=== PATIENT | female | born 1940 | race Caucasian/White ===

== ENCOUNTER 2016-09-13 06:08 | Outpatient (CLI) | payer MEDICARE ==
[2016-09-13] VITALS (7 sets, daily range): BP systolic 126–169; BP diastolic 66–84; PULSE 80–88; RESP 16; TEMP 98.7–99; O2SAT 93–98; Ht 162.6 cm; Wt 74.9 kg
[~2016-09-13] VITALS: Ht 162.6 cm; Wt 74.9 kg
[~2016-09-13 06:08] MED LIST: ACET-765 PO; ALBU1.252 AEROSOL; ASPI-557 PO; ATOR40TA29 PO; CITA-51 PO; FERR-70 PO; GABA-190 PO; HYDR-3989 PO; METH500T6 PO; NITR0.4T38 SL; PANT40TA PO; PIND5TAB2 PO; WARF2TAB51 PO; [UNRECOGNIZED DRUG - CODE] PO
[2016-09-13 06:40] LABS: INR 1.57 (0.76-1.04); PROTHROMBIN TIME 17.1 SEC (9.31-12.49)
[2016-09-13] MEDS ORDERED: CHOL100092 PO (06:40)
[2016-09-13] MEDS ORDERED: MULT-933 PO (06:41)
[2016-09-13] MEDS ORDERED: WARF4TAB6 PO (06:43)
[2016-09-13] MEDS ORDERED: BENZ200C36 PO (06:45)
[2016-09-13] MEDS ORDERED: BIFI4CAP PO (06:47)
[2016-09-13] MEDS ORDERED: LR 1,000 ML IV SCH (07:00)
[2016-09-13] MEDS ORDERED: LIDOCAINE 1% (10mg/ml) 30ml SDV ONE ×2 (07:51→09:54)
[2016-09-13] MEDS ORDERED: MIDAZOLAM 2mg/2ml INJECTION ONE ×2 (07:51→09:53)
[2016-09-13] MEDS ORDERED: SALINE FLUSH 10ml SYRINGE ONE ×2 (07:51→09:54)
[2016-09-13] MEDS ORDERED: FENTANYL 100mcg/2ml INJECTION ONE ×2 (07:51→09:53)
[2016-09-13] MEDS ORDERED: NORMAL SALINE 0 ML IV ONE ×2 (07:53→09:54)
[2016-09-13] MEDS ORDERED: LR 1,000 ML IV PRN (08:00)
[2016-09-13] MEDS ORDERED: CEFAZOLIN 1 GRAM INJECTION IV ONE (08:00)
[2016-09-13] MEDS ORDERED: LIDOCAINE 1% (10mg/ml) 2ml SDV INJ ONE (08:00)
[2016-09-13] MEDS ORDERED: NORMAL SALINE 500 ML IV ONE (09:57)
--- NOTE | 2016-09-13 10:30 | DI ---
Indication: ITS.REASON: T-SPINE FX PROCEDURE: MRI THORACIC SPINE W/O CONTRAS: Encounter: Initial Comparison: None Technique: Multiplanar, multisequence, thoracic spine protocol MR imaging without contrast of the spine was acquired. FINDINGS: Alignment of the thoracic spine is within normal limits. There is an acute fracture of the T8 vertebral body with a remote fracture of the superior endplate of T5 Age-appropriate degenerative changes are seen within the facet joints and intervertebral disc, but these do not result in significant compromise of the spinal canal or neural foramina. The thoracic cord is normal in morphology, caliber, and signal intensity on the acquired sequences. There is no evidence of cord compression or intraspinal mass. IMPRESSION: 1. Acute fracture of T8 with remote fracture of T5. 2. No evidence of spinal cord compression or evidence of nerve root compromise in the thoracic spine region. .
--- NOTE | 2016-09-13 16:55 | DI ---
Indication: ITS.REASON: S22.000A Wedge compression fracture of unspecified PROCEDURE: VERTEBROPLASTY, THORACIC, SNGL: T8 Vertebral body augmentation with mechanical bone tamp devices Encounter: Initial Comparison: MRI of thoracic spine performed same date INDICATION: Osteoporotic compression fracture, unresponsive to standard medical management. Severe back pain. Informed consent was obtained. A "timeout" was performed prior to the procedure to confirm the patient's identity and the planned procedure. Moderate sedation was provided during the procedure with two mg of Versed and 75 mcg of fentanyl titrated intravenously over 30 minutes. The patient was continuously monitored with an independent trained nurse observer using pulse oximetry, EKG monitoring, and intermittent blood pressure monitoring. The patient was prepped and draped in sterile manner using maximal sterile barrier technique. Local anesthesia was provided with 1% lidocaine and 0.5% bupivacaine. The large caliber guide needle was advanced into the left pedicle of T8. Fluoroscopic guidance was utilized. A mechanical bone tamp device was then used to create a cavity in the superior aspect of the T8 vertebral body for vertebral augmentation. The curved needle was advanced through the guide needle and into the center of the vertebral body. In this location, polymethyl methacrylate cement was injected under fluoroscopic control. Good filling of the vertebral body was obtained. Early in the injection there was a small extension to the disc space so that no further cement could be safely administered. No complications occurred. Patient tolerated the procedure well. IMPRESSION: Uncomplicated vertebral body augmentation of T8 under fluoroscopic guidance. .
== END 2016-09-13 12:20 | disposition home or self-care (01) ==
LOC: CATH 06:08
PROVIDERS: ATTEND Radiology Body Imaging
DX: S22.060A Wedge compression fracture of T7-T8 vertebra, initial encounter for closed fracture (principal); M48.54XA Collapsed vertebra, not elsewhere classified, thoracic region, initial encounter for fracture; Z79.01 Long term (current) use of anticoagulants; Z79.82 Long term (current) use of aspirin; Z79.899 Other long term (current) drug therapy; W19.XXXA Unspecified fall, initial encounter; Y93.89 Activity, other specified; Y92.018 Other place in single-family (private) house as the place of occurrence of the external cause; Y99.8 Other external cause status
CPT/HCPCS: 22513; 36415; 72146; 82948; 85610; J2250; J3010

== ENCOUNTER 2016-09-26 11:02 | Emergency (ER) | payer MEDICARE ==
[~2016-09-26] VITALS: Ht 157.5 cm; Wt 76.2 kg
[~2016-09-26 11:02] MED LIST changes: +BENZ200C36 PO; +BIFI4CAP PO; +CHOL100092 PO; -METH500T6 PO; +MULT-933 PO; -WARF2TAB51 PO; +WARF4TAB6 PO
[2016-09-26 11:04] VITALS: Ht 157.5 cm; Wt 76.2 kg
--- OUTSIDE RECORDS SUMMARY | 2016-09-26 11:06 | XMS REPORT | Continuity of Care Document ---
Author Author [facility] Organization [facility] Address Unknown Phone Unavailable Care Team Providers Care Senior Mortgage Loan Processor Name Role Phone DMITRIY TAYLOR MD Primary Care Physician [phone] Insurance Providers Guarantor Tiffanie Grady Address [address] [place] [address] Email DENIED 09-10-16 Payer [employer] Policy Number [id number] Subscriber's Name Tiffanie Grady Relationship 18 Self Advance Directives Directive Response Recorded Date/Time Ordered Resuscitation Status Full Code, unverified 09/10/16 5:59pm Resuscitation Documents on File No 09/13/16 7:05am DPOA for Healthcare Only Yes 09/13/16 7:05am Living Will Yes 09/13/16 7:05am Problems Active Problems Medical Problem Onset Date Status A-fib Unknown Chronic Anxiety Unknown Chronic CAD (coronary artery disease) Unknown Chronic CAD (coronary artery disease), autologous vein bypass graft Unknown Chronic Chronic kidney disease (CKD) Unknown Chronic Diabetes mellitus Unknown Chronic GERD (gastroesophageal reflux disease) Unknown Chronic Hx of deep venous thrombosis Unknown Resolved Hyperlipemia Unknown Chronic Hypoxia Unknown Resolved Laceration of finger Unknown Acute Osteoarthritis Unknown Chronic Tension headache Unknown Chronic chronic anticoagulation Unknown Chronic Surgical Problem Onset Date Status S/P repair of ventral hernia Unknown Acute S/P ventral herniorrhaphy Unknown Resolved Medications Current Home Medications Medication Dose Units Route Directions Days Qty Instructions Start Date Acetaminophen/Dp-Hydram Hcl (Tylenol P.m. Ex-Str Caplet) 1 Tab Tablet 2 Tab Oral Bedtime 12/16/10 Acetaminophen/Hydrocodone Bitart (Macy 5-325 Tablet) 1 Tab Tablet 1-2 Tab Oral Every 5 Hours as needed for Pain 30 Tablet 05/13/15 Albuterol Sulfate 1.25 Mg/3 Ml Vial.neb 1 Vial Aerosol Tx. Four Times Daily 09/10/16 Aspirin (Aspir 81) 81 Mg Tablet. 1 Tab Oral Daily 09/10/16 Atorvastatin Calcium 40 Mg Tablet 20 Mg Oral Daily 05/10/13 Benzonatate 200 Mg Capsule 1 Cap Oral Three Times A Day DO NOT BITE , CHEW, OR CRUSH 09/13/16 Bifidobacterium Infantis (Align) 4 Mg Capsule 1 Cap Oral Daily Cholecalciferol (Vitamin D3) (Vitamin D3) 1,000 Unit Capsule 1 Cap Oral Daily 09/13/16 Citalopram Hydrobromide (Celexa) 40 Mg Tablet 40 Mg Oral Bedtime 05/10/13 Ferrous Sulfate 325 Mg Tablet 1 Tab Oral Daily BEST WITH FOOD. Gabapentin (Neurontin) 300 Mg Capsule 300 Mg Oral Twice A Day 18/04 Glipizide (Glipizide Er) 2.5 Mg Tab.er.24 1 Tab Oral Daily Multivitamin (Multi-Day Vitamins) 1 Each Tablet 1 Tab Oral Daily 09/13/16 Nitroglycerin 0.4 Mg Tab.subl 0.4 Mg Sublingual As Needed Pantoprazole Sodium (Protonix) 40 Mg Tablet. 40 Mg Oral Twice A Day for Acid Reflux Take 1 tablet, by mouth, 2 times a day before Breakfast and Dinner. 09/10/16 Pindolol 5 Mg Tablet Oral Daily 09/10/16 Warfarin Sodium 4 Mg Tablet 1.5 Tab Oral Daily 09/13/16 Past Home Medications Medication Directions Ordered Status Citalopram Hydrobromide (Celexa) 40 Mg Tablet, 40 Mg Oral Daily 12/16/10 Discontinued Cyclobenzaprine Hcl (Flexeril) 10 Mg Tablet, 10 Mg Oral As Needed 05/10/13 Discontinued Isosorbide Mononitrate 30 Mg Tab.sr.24h, 30 Mg Oral Twice A Day 12/16/10 Discontinued Lansoprazole (Prevacid) 30 Mg Capsule., 30 Mg Oral Daily 12/16/10 Discontinued Lovenox , Daily 12/19/12 Discontinued Metoprolol Tartrate 25 Mg Tablet, 25 Mg Oral Twice A Day 12/16/10 Discontinued Simvastatin (Zocor) 40 Mg Tablet, 20 Mg Oral Bedtime 12/16/10 Discontinued Social History Social History Problem Response Recorded Date/Time Onset Date Status Chewing Tobacco Status No 05/10/2013 12:12pm Not Applicable Not Applicable Hx Substance Use No 09/13/2016 6:50am Not Applicable Not Applicable Hx Alcohol Use No 05/12/2015 10:45am Not Applicable Not Applicable Has the pt used tobacco in the last 12 months No 09/13/2016 6:50am Not Applicable Not Applicable Tobacco Usage none 05/14/2015 8:24am Not Applicable Not Applicable Query Response Start Date Stop Date Smoking Status Never smoker Hospital Discharge Instructions No hospital discharge instructions. Plan of Care Discharge Date 09/13/16 12:20pm Prescriptions See Medication Section Functional Status Query Response Date Recorded Ability to complete ADL's impeded by No change September 13, 2016 7:05am Allergies, Adverse Reactions, Alerts Allergen Type Severity Reaction Status Last Updated D&c red no. 7 Allergy Mild ITCH Active 09/13/16 Immunizations Query Response on File Recorded Date/Time Hx Influenza Vaccination Y 201405/12/15 10:45am Hx Pneumococcal Vaccination Y 201305/12/15 10:45am Hx Tetanus, Diptheria, Pertussis Y 05/10/13 05/10/13 12:30pm Hx Influenza Vaccination Y 201405/12/15 10:45am Hx Tetanus, Diptheria, Pertussis Y 05/10/13 05/10/13 12:30pm Vital Signs Acute Vital Signs Vital Response Date/Time Temperature (Fahrenheit) 98.7 deg F (96.8 - 99.1) 09/13/2016 11:05am Temperature (Calculated Celsius) 37.63496 degrees C (36.0 - 37.3) 09/13/2016 11:05am Temperature Source Temporal 09/13/2016 11:05am Pulse Rate (adult) 80 bpm (60 - 100) 09/13/2016 12:20pm Respiratory Rate 16 breaths/min (10 - 20) 09/13/2016 12:20pm O2 Sat by Pulse Oximetry 98 % (90 - 100) 09/13/2016 12:20pm Oxygen Delivery Method Room Air 09/13/2016 12:20pm Blood Pressure 142/74 mm Hg 09/13/2016 12:20pm Blood Pressure Source Automatic Cuff 09/13/2016 12:20pm Height (Feet) 5 feet 09/13/2016 6:21am Height (Inches) 4.00 inches 09/13/2016 6:21am Weight (Kilograms) 74.900 kg 09/13/2016 6:21am Body Mass Index (BMI) 28.3 09/13/2016 6:21am Results Laboratory Results Test Name Result Units Flags Reference Collection Date/Time Result Date/ Time Comments Prothromb Time International Ratio 1.57 H 0.76-1.04 09/13/2016 6:26am 09/13/2016 6:40am THERAPUTIC RANGE=2.00-3.00 FOR ANTI-THROMBOSIS THERAPUTIC RANGE=2.50-3.50 FOR IMPLANTED VALVE Glucometer 78 mg/dL 65-110 09/13/2016 6:26am 09/13/2016 6:33am Name: TIFFANIE GRADY Unit #: [id number] : 1940 Sex: F Admit Date: Loc / Svc: CATH Discharge Date: DIAGNOSTIC IMAGING REPORT Report #: [id number] [facility] [place] Indication: ITS.REASON: T-SPINE FX PROCEDURE: MRI THORACIC SPINE W/O CONTRAS: Encounter: Initial Comparison: None Technique: Multiplanar, multisequence, thoracic spine protocol MR imaging without contrast of the spine was acquired. FINDINGS: Alignment of the thoracic spine is within normal limits. There is an acute fracture of the T8 vertebral body with a remote fracture of the superior endplate of T5 Age-appropriate degenerative changes are seen within the facet joints and intervertebral disc, but these do not result in significant compromise of the spinal canal or neural foramina. The thoracic cord is normal in morphology, caliber, and signal intensity on the acquired sequences. There is no evidence of cord compression or intraspinal mass. IMPRESSION: 1. Acute fracture of T8 with remote fracture of T5. 2. No evidence of spinal cord compression or evidence of nerve root compromise in the thoracic spine region. . Procedures No known history of procedures. Encounters Encounter Location Arrival/Admit Date Discharge/Depart Date Attending Provider Departed [facility] 09/13/16 6:08am 09/13/16 12:20pm NICK CALLE MD
--- OUTSIDE RECORDS SUMMARY | 2016-09-26 11:06 | XMS REPORT | Referral Summary ---
Author Author [facility] Organization [facility] Address Unknown Phone Unavailable Care Team Providers Care Ux Manager Name Role Phone Agnes Colón Primary Care Physician [phone] Encounter Date(s): 10/03/14 - 10/03/14 [facility] [address] [place] [id number] Discharge Diagnosis: Dyspnea Discharge Diagnosis: Coronary heart disease Discharge Diagnosis: Chronic anticoagulation Discharge Diagnosis: Ecchymosis Discharge Diagnosis: Dry mouth Discharge Diagnosis: Atrial fibrillation Discharge Disposition: -Home or Self Care Attending Physician: Compa Malik MD Admitting Physician: Compa Malik MD Vital Signs Most recent to 1 oldest [Reference Range]: Peripheral Pulse 76 bpm Rate [60-100 bpm] (10/03/14 11:16 AM) Blood Pressure 110/60 mmHg [90-140/60-90 mmHg] (10/03/14 11:16 AM) Problem List Condition Effective Dates Status Health Status Informant Duodenal ulcer NOS, Active obst(Confirmed) Acute gastritis with Active bleeding(Confirmed) Sinus Active infections(Confirmed ) Angina(Confirmed)1 Active Anxiety(Confirmed) Resolved Arthritis(Confirmed) Resolved Blood Resolved clot(Confirmed) Cholelithiasis(Confi Active rmed) Chronic renal Active failure, stage 2 (mild)(Confirmed) Coronary artery 2003 Active disease(Confirmed) Diabetes(Confirmed) Resolved DVT (deep venous Active thrombosis)(Confirme d) Esophageal Active spasm(Confirmed) Fibrocystic Resolved disease(Confirmed) Gallbladder Resolved disease(Confirmed) GI (gastrointestinal Active bleed)(Confirmed) GERD(Confirmed) Resolved Hearing Active loss(Confirmed) Hematochezia(Confirm 02/2011 Active ed) High Active cholesterol(Confirme d) Hyperlipidemia(Confi Resolved rmed) Hypertension(Confirm Resolved ed) Impingement syndrome Active of left shoulder(Confirmed) Keratoconjunctivitis Active sicca, in Sjogren's syndrome(Confirmed) Leukocytosis(Confirm Active ed) Obesity(Confirmed) Active patient Osteoarthritis(Confi Resolved rmed) Overweight(Confirmed Active ) 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) Scarlet Resolved fever(Confirmed) Bilateral Active sensorineural hearing loss(Confirmed) Sinus Active problems(Confirmed) Tension Active headache(Confirmed) 1takes metoprolol Allergies, Adverse Reactions, Alerts Substance Reaction Severity Status Red Dye Pruritus Medium Active Medications acetaminophen 500 mg, Oral, Daily, 0 Refill(s) Start Date: 11/09/13 Status: Ordered albuterol 1.25 mg/3 mL (0.042%) inhalation solution 1.25 mg 3 mL, NEB, QID, # 360 mL, 0 Refill(s), Pharmacy: [facility], 3 mL NEB QID Start Date: 03/21/15 Status: Ordered Aspir 81 mg, Oral, Daily, 0 Refill(s) Start Date: 11/09/13 Status: Ordered CeleXA 40 mg oral tablet See Instructions, TAKE 1 TABLET EVERY DAY, # 90 tabs, 2 Refill(s), eRx: [facility], TAKE 1 TABLET EVERY DAY Start Date: 11/28/14 Status: Ordered Coumadin 4 mg oral tablet 4 mg 1 tabs, Oral, Daily, # 90 tabs, 1 Refill(s), Pharmacy: [facility], 1 tabs Oral Daily Start Date: 03/10/15 Status: Ordered DuoNeb 0.5 mg-2.5 mg/3 mL inhalation solution 3 mL, Inhalation, QID, # 60 Each, 0 Refill(s), Pharmacy: [facility] # [id number] Start Date: 03/26/15 Status: Ordered ferrous sulfate 325 mg (65 mg elemental iron) oral tablet 1 tabs, Oral, BID, # 60 tabs, 11 Refill(s), [facility], 1 tabs Oral BID Start Date: 05/07/14 Status: Ordered GlipiZIDE XL 2.5 mg oral tablet, extended release 2.5 mg, Oral, BID, # 180 tabs, 1 Refill(s), Pharmacy: [facility], 2.5 mg Oral BID Start Date: 03/10/15 Status: Ordered Lasix 20 mg oral tablet See Instructions, TAKE 1 TABLET EVERY DAY, # 90 tabs, 1 Refill(s), eRx: [facility], TAKE 1 TABLET EVERY DAY Start Date: 09/09/14 Status: Ordered Lipitor 40 mg oral tablet 1/2 tabs, Oral, Bedtime (once a day), # 90 tabs, 2 Refill(s), Pharmacy: [facility], 1/2 tabs Oral Bedtime (once a day) Start Date: 11/29/14 Status: Ordered multivitamin Daily, 0 Refill(s) Start Date: 11/09/13 Status: Ordered Neurontin 300 mg oral capsule 300 mg 1 caps, Oral, BID, # 180 caps, 1 Refill(s), Pharmacy: [facility], 1 caps Oral BID Start Date: 03/10/15 Status: Ordered nitroglycerin 0.4 mg sublingual tablet 0.4 mg 1 tabs, SubLingual, q5min, as needed for chest pain, # 100 tabs, 1 Refill (s), Pharmacy: [facility], 1 tabs SubLingual q5min,PRN:as needed for chest pain Start Date: 03/10/15 Status: Ordered pindolol 5 mg oral tablet See Instructions, TAKE 1 TABLET EVERY DAY, # 90 tabs, 1 Refill(s), eRx: [facility], TAKE 1 TABLET EVERY DAY Start Date: 09/30/14 Status: Ordered Please draw lab work Please draw lab work, See Instructions, PT/INR monthly and fax results to [phone] DX: DVT 453.40, # 6 Each, 0 Refill(s) Start Date: 05/31/14 Status: Ordered predniSONE 20 mg oral tablet 60 mg 3 tabs, Oral, Daily, X 3 days, # 9 tabs, 0 Refill(s), Pharmacy: [facility] #[id number], 3 tabs Oral Daily,x3 days Start Date: 03/26/15 Stop Date: 03/29/15 Status: Ordered promethazine-codeine 6.25 mg-10 mg/5 mL oral syrup 5 mL, Oral, q4hr, as needed for cough, # 90 mL, 0 Refill(s) Start Date: 03/26/15 Status: Ordered Protonix 40 mg oral delayed release tablet 1 tabs, Oral, BID, # 60 tabs, 11 Refill(s), Pharmacy: [facility], 1 tabs Oral BID Start Date: 05/07/14 Status: Ordered Refresh Dry Eye Therapy drops, Eye-Both, QID, 0 Refill(s) Start Date: 11/09/13 Status: Ordered TRUE test blood glucose strips TRUE test blood glucose strips, See Instructions, Check 3 x a day / 3 x a week. Send 1 bottle of 100 strips., # 1 bottles, 3 Refill(s), Pharmacy: [facility], Check 3 x a day / 3 x a week. Send 1 bottle of 100 strips. Start Date: 01/22/15 Status: Ordered Vitamin D3 2000 intl units oral tablet Intl_Units tabs, Oral, Daily, 0 Refill(s) Start Date: 12/24/14 Status: Ordered Results Hematology Most recent to 1 oldest [Reference Range]: Sed Rate [0-23 27 mm/hr mm/hr] *HI* (10/03/14 12:21 PM) Immunizations Vaccine Date Refusal Reason influenza virus vaccine, inactivated 02/11/14 influenza virus vaccine, live 03/16/12 pneumococcal 23-polyvalent vaccine 04/29/03 tetanus toxoid 05/27/95 Procedures Procedure Date Related Diagnosis Body Site Collection of venous blood by venipuncture 10/03/14 Collection of venous blood by venipuncture 10/03/14 Colonoscopy1 03/28/14 Esophagogastroduodenoscopy and biopsy2 03/28/14 H/O esophagogastroduodenoscopy3 2009 S/P cardiac catheterization4 2002 S/P colonoscopy 1989 tailbone removed 1989 L ulnar transposition 1986 S/p breast biopsy, cyst 1982 D&C - Dilatation and curettage 1978 S/P carpal tunnel release 1978 L ear drum 1974 Back pain5, 6 CABG - Coronary artery bypass graft Cholecystectomy Lumpectomy7 Tonsillectomy8 Vaginal hysterectomy9 1Normal, no need to repeat unless symptoms warrant 2H. pylori negative. Marked gastritis. Duodenal diverticulum with adjacent ulcer. Placed on Carafate and PPI. Hold Coumadin. C PCP in 4 weeks 3Shatzkis ring, with dilation, gastric ulcers 4no stents, had blockage, collaterals developed; Dr. Malik [facility] surgery 2003 6for herniated disc 7fibrocystic disease 1983 [id number] Social History Social History Type Response Smoking Status Never smoker Assessment and Plan Extracted from: Title: Office Visit Note Author: Compa Malik MD Date: 10/03/14 Assessment/Plan 1.Dyspnea Ordered: Echo, 2-D + Doppler + Color Flow EKG with Interpretation [id number] Return to Clinic 2.Dry mouth Ordered: Echo, 2-D + Doppler + Color Flow EKG with Interpretation [id number] Return to Clinic 3.Ecchymosis Ordered: Echo, 2-D + Doppler + Color Flow EKG with Interpretation [id number] Return to Clinic 4.Atrial fibrillation Ordered: Echo, 2-D + Doppler + Color Flow EKG with Interpretation [id number] Return to Clinic 5.Chronic anticoagulation Ordered: Echo, 2-D + Doppler + Color Flow EKG with Interpretation [id number] Return to Clinic 6.Coronary heart disease Discussion this lady is very complex. She has a major sense of vigilance, she has coronary artery disease, she has chronic kidney disease, she is under a lot of stress related to family matters, and at this point, I think that we need more information. Accordingly an EKG and an echocardiogram and a chest x- ray were arranged and a follow-up visit was arranged. Ordered: Echo, 2-D + Doppler + Color Flow EKG with Interpretation [id number] Return to Clinic Referrals to Other Providers Referred by: Compa Malik MD
--- OUTSIDE RECORDS SUMMARY | 2016-09-26 11:06 | XMS REPORT | Referral Summary ---
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 Name Role Phone Agnes Colón Primary Care Physician [phone] Encounter VC Date(s): 12/24/14 - 12/24/14 [facility] [address] [place] [address]- Discharge Disposition: 01-Home or Self Care Attending Physician: Chase Colón MD Admitting Physician: Chase Colón MD Vital Signs Most recent to 1 oldest [Reference Range]: Blood Pressure 116/64 mmHg [90-140/60-90 mmHg] (12/24/14 9:52 AM) Problem List Condition Effective Dates Status [...] QID, # 360 mL, 0 Refill(s), Pharmacy: [facility], 3 mL NEB QID Start Date: 03/21/15 Status: Ordered Aspir 81 mg, Oral, Daily, 0 Refill(s) Start Date: 11/09/13 Status: Ordered CeleXA 40 mg oral tablet See Instructions, TAKE 1 TABLET EVERY DAY, # 90 tabs, 2 Refill(s), eRx: [facility], TAKE 1 TABLET EVERY DAY Start Date: 06/13/15 Status: Ordered Coumadin 4 mg oral tablet 4 mg 1 tabs, Oral, Daily, # 90 tabs, 1 Refill(s), Pharmacy: [facility], 1 tabs Oral Daily Start Date: 03/10/15 Status: Ordered Discontinue oxygen therapy Discontinue oxygen therapy, See Instructions, Pt no longer require oxygen therapy. Please discontinue orders and chart picker equipment. Fax to [facility] [phone], # 1 Each, 0 Refill(s) Start Date: 05/19/15 Status: Ordered DuoNeb 0.5 mg-2.5 mg/3 mL inhalation solution 3 mL, Inhalation, QID, # 60 Each, 0 Refill(s), Pharmacy: [facility] # [id number] Start Date: 03/26/15 Status: Ordered ferrous sulfate 325 mg (65 mg elemental iron) oral tablet 1 tabs, Oral, BID, # 60 tabs, 11 Refill(s), Pharmacy: [facility], 1 tabs Oral BID Start Date: 05/07/14 Status: Ordered GlipiZIDE XL 2.5 mg oral tablet, extended release 2.5 mg, Oral, BID, # 180 tabs, 1 Refill(s), Pharmacy: [facility], 2.5 mg Oral BID Start Date: 03/10/15 Status: Ordered Lasix 20 mg oral tablet See Instructions, TAKE 1 TABLET EVERY DAY, # 90 tabs, eRx: [facility], TAKE 1 TABLET EVERY DAY Start Date: 06/17/15 Status: Ordered Lipitor 40 mg oral tablet 1/2 tabs, Oral, Bedtime (once a day), # 90 tabs, 2 Refill(s), Pharmacy: [facility], 1/2 tabs Oral Bedtime (once a day) Start Date: 11/29/14 Status: Ordered multivitamin Daily, 0 Refill(s) Start Date: 11/09/13 Status: Ordered Neurontin 300 mg oral capsule See Instructions, TAKE 1 CAPSULE TWICE DAILY, # 180 caps, 1 Refill(s), eRx: [facility], TAKE 1 CAPSULE TWICE DAILY Start Date: 06/03/15 Status: Ordered nitroglycerin 0.4 mg sublingual tablet 0.4 mg 1 tabs, SubLingual, q5min, as needed for chest pain, # 100 tabs, 1 Refill (s), Pharmacy: [facility], 1 tabs SubLingual q5min,PRN:as needed for chest pain Start Date: 05/19/15 Status: Ordered pindolol 5 mg oral tablet See Instructions, TAKE 1 TABLET EVERY DAY, # 90 tabs, 0 Refill(s), Pharmacy: [facility] #[id number], TAKE 1 TABLET EVERY DAY Start Date: 05/27/15 Status: Ordered Please draw lab work Please draw lab work, See Instructions, PT/INR monthly and fax results to DX: DVT 453.40, # 6 Each, 0 Refill(s) Start Date: 05/31/14 Status: Ordered promethazine-codeine 6.25 mg-10 mg/5 mL oral syrup 5 mL, Oral, q4hr, as needed for cough, # 120 mL, 1 Refill(s) Start Date: 04/15/15 Status: Ordered Protonix 40 mg oral delayed release tablet 40 mg 1 tabs, Oral, BID, # 180 tabs, 1 Refill(s), Pharmacy: [facility], 1 tabs Oral BID Start Date: 05/19/15 Status: Ordered Refresh Dry Eye Therapy drops, Eye-Both, QID, 0 Refill(s) Start Date: 11/09/13 Status: Ordered traMADol 50 mg oral tablet 50 mg 1 tabs, Oral, q12hr, as needed for pain, # 50 tabs, 0 Refill(s) Start Date: 05/21/15 Status: Ordered TRUE test blood glucose strips TRUE test blood glucose strips, See Instructions, Check 3 x a day / 3 x a week. Send 1 bottle of 100 strips., # 1 bottles, 3 Refill(s), Pharmacy: [facility], Check 3 x a day / 3 x a week. Send 1 bottle of 100 strips. Start Date: 01/22/15 Status: Ordered Vitamin D3 2000 intl units oral tablet Intl_Units tabs, Oral, Daily, 0 Refill(s) Start Date: 12/24/14 Status: Ordered Results No data available for this section Immunizations Vaccine Date Refusal Reason influenza virus vaccine, inactivated 04/15/15 influenza virus vaccine, inactivated 02/11/14 influenza virus vaccine, live 03/16/12 pneumococcal 23-polyvalent vaccine 04/29/03 tetanus toxoid 05/27/95 Procedures Procedure Date Related Diagnosis Body Site Laparoscopic repair of ventral hernia1 05/12/15 Colonoscopy2 03/28/14 Esophagogastroduodenoscopy and biopsy3 03/28/14 H/O esophagogastroduodenoscopy2009 S/P cardiac catheterization5 2002 S/P colonoscopy 1989 tailbone removed 1989 L ulnar transposition 1986 S/p breast biopsy, cyst 1983 D&C - Dilatation and curettage 1978 S/P carpal tunnel release 1978 L ear drum 1974 Back pain6, 7 CABG - Coronary artery bypass graft Cholecystectomy Lumpectomy8 Tonsillectomy9 Vaginal [id number] 1Robotic-assisted with incorporation of mesh 2Normal, no need to repeat unless symptoms warrant 3H. pylori negative. Marked gastritis. Duodenal diverticulum with adjacent ulcer. Placed on Carafate and PPI. Hold Coumadin. C PCP in 4 weeks 4Shatzkis ring, with dilation, gastric ulcers 5no stents, had blockage, collaterals developed; Dr. Malik 6back surgery 2003 7for herniated disc 8fibrocystic disease 1983 [id number] Social History Social History Type Response Smoking Status Never smoker Assessment and Plan Extracted from: Title: Ambulatory Patient Education Author: Chase Colón MD Date: 12/25 Family Medicine Wang's Esophagus Wang's esophagus occurs when the lining of the esophagus is damaged. The esophagus is the tube that carries food from the mouth to the stomach. With Wang's esophagus, the lining of the esophagus gets replaced by material that is similar to the lining in the intestines. This process is called intestinal metaplasia. A small number of people with Wang's esophagus develop esophageal cancer. CAUSES The exact cause of Wang's esophagus is unknown. SYMPTOMS Most people with Wang's esophagus do not have symptoms. However, many patients also have gastroesophageal reflux disease (GERD). GERD can cause heartburn, trouble swallowing, and a dry cough. DIAGNOSIS Wang's esophagus is diagnosed by an exam called upper gastrointestinal endoscopy. A thin, flexible tube (endoscope) is passed down the esophagus. The endoscope has a light and camera on the end. Your caregiver uses the endoscope to view the inside of the esophagus. A tissue sample may also be taken and examined under a microscope (biopsy). If cancer cells are found during the biopsy, this condition is called dysplasia. TREATMENT If you have no dysplasia or low-grade dysplasia, your caregiver may recommend no treatment or only taking medicines to treat GERD. Sometimes, taking acid- blocking drugs to treat GERD helps improve the tissue affected by Wang's esophagus. Your caregiver may also recommend periodic esophageal exams. If you have high-grade dysplasia, treatment may include removing the damaged parts of the esophagus. This can be done by heating, freezing, or surgically removing the tissue. In some cases, surgery may be done to remove most of the esophagus. The stomach is then attached to the remaining portion of the esophagus. HOME CARE INSTRUCTIONS Take acid-blocking drugs for GERD if recommended by your caregiver. Keep all follow-up appointments as directed by your caregiver. You may need periodic esophageal exams. SEEK IMMEDIATE MEDICAL CARE IF: You have chest pain. You have trouble swallowing. You vomit blood or material that looks like coffee grounds. Your stools are bright red or dark. Document Released: 07/29/2004 Document Revised: 11/07/2012 Document Reviewed: Exit[employer] Patient Information 2015 [employer]. This information is not intended to replace advice given to you by your health care provider. Make sure you discuss any questions you have with your health care provider. Diabetes and Foot Care Diabetes may cause you to have problems because of poor blood supply ( circulation) to your feet and legs. This may cause the skin on your feet to become thinner, break easier, and heal more slowly. Your skin may become dry, and the skin may peel and crack. You may also have nerve damage in your legs and feet causing decreased feeling in them. You may not notice minor injuries to your feet that could lead to infections or more serious problems. Taking care of your feet is one of the most important things you can do for yourself. HOME CARE INSTRUCTIONS Wear shoes at all times, even in the house. Do not go barefoot. Bare feet are easily injured. Check your feet daily for blisters, cuts, and redness. If you cannot see the bottom of your feet, use a mirror or ask someone for help. Wash your feet with warm water (do not use hot water) and mild soap. Then pat your feet and the areas between your toes until they are completely dry. Do not soak your feet as this can dry your skin. Apply a moisturizing lotion or petroleum jelly (that does not contain alcohol and is unscented) to the skin on your feet and to dry, brittle toenails. Do not apply lotion between your toes. Trim your toenails straight across. Do not dig under them or around the cuticle. File the edges of your nails with an emery board or nail file. Do not cut corns or calluses or try to remove them with medicine. Wear clean socks or stockings every day. Make sure they are not too tight. Do not wear knee-high stockings since they may decrease blood flow to your legs. Wear shoes that fit properly and have enough cushioning. To break in new shoes, wear them for just a few hours a day. This prevents you from injuring your feet. Always look in your shoes before you put them on to be sure there are no objects inside. Do not cross your legs. This may decrease the blood flow to your feet. If you find a minor scrape, cut, or break in the skin on your feet, keep it and the skin around it clean and dry. These areas may be cleansed with mild soap and water. Do not cleanse the area with peroxide, alcohol, or iodine. When you remove an adhesive bandage, be sure not to damage the skin around it. If you have a wound, look at it several times a day to make sure it is healing. Do not use heating pads or hot water bottles. They may burn your skin. If you have lost feeling in your feet or legs, you may not know it is happening until it is too late. Make sure your health care provider performs a complete foot exam at least annually or more often if you have foot problems. Report any cuts, sores, or bruises to your health care provider immediately. SEEK MEDICAL CARE IF: You have an injury that is not healing. You have cuts or breaks in the skin. You have an ingrown nail. You notice redness on your legs or feet. You feel burning or tingling in your legs or feet. You have pain or cramps in your legs and feet. Your legs or feet are numb. Your feet always feel cold. SEEK IMMEDIATE MEDICAL CARE IF: There is increasing redness, swelling, or pain in or around a wound. There is a red line that goes up your leg. Pus is coming from a wound. You develop a fever or as directed by your health care provider. You notice a bad smell coming from an ulcer or wound. Document Released: 05/06/2001 Document Revised: 01/09/2014 Document Reviewed: [facility] Patient Information 2015 [employer]. This information is not intended to replace advice given to you by your health care provider. Make sure you discuss any questions you have with your health care provider. No follow up information was provided. Extracted from: Title: Office Visit Note Author: Chase Colón MD Date: 12/24/14 Assessment/Plan Anxiety Continue with the current medications and follow up in 6 months. Ordered: Office Visit Level 4 Est 17166 Arthritis Ordered: Office Visit Level 4 Est 48972 Chronic renal failure, stage 2 (mild) Ordered: Office Visit Level 4 Est 12738 Coronary artery disease Ordered: Office Visit Level 4 Est 40658 GERD Ordered: Office Visit Level 4 Est 55651 Peripheral neuropathy Ordered: Office Visit Level 4 Est 02336 Tension headache Ordered: Office Visit Level 4 Est 77700
--- OUTSIDE RECORDS SUMMARY | 2016-09-26 11:06 | XMS REPORT | Referral Summary ---
Author Author [facility] Organization [facility] Address Unknown Phone Unavailable Care Team Providers Care Echocardiograph Technician Name Role Phone Agnes Colón Primary Care Physician [phone] Encounter VC Date(s): 01/05/16 - 01/05/16 [facility] [address] [place] [address]- Discharge Disposition: 01-Home or Self Care Attending Physician: Chase Colón MD Admitting Physician: Chase Colón MD Vital Signs Most recent to 1 oldest [Reference Range]: Blood Pressure 130/74 mmHg [90-140/60-90 mmHg] (01/05/16 1:34 PM) Problem List Condition Effective Dates Status Health [...] Status Red Dye Pruritus Medium Active Medications albuterol 1.25 mg/3 mL (0.042%) inhalation solution 1.25 mg 3 mL, NEB, QID, # 360 mL, 0 Refill(s), Pharmacy: [facility], 3 mL NEB QID Start Date: 03/21/15 Status: Ordered Aspir 81 mg, Oral, Daily, 0 Refill(s) Start Date: 11/09/13 Status: Ordered calcitriol 0.25 mcg oral capsule 0.25 mcg 1 caps, Oral, Daily, # 30 caps, 0 Refill(s) Start Date: 01/05/16 Status: Ordered CeleXA 40 mg oral tablet See Instructions, TAKE 1 TABLET EVERY DAY, # 90 tabs, 2 Refill(s), eRx: [facility], TAKE 1 TABLET EVERY DAY Start Date: 06/13/15 Status: Ordered Coumadin 4 mg oral tablet See Instructions, TAKE 1 TABLET EVERY DAY, # 90 tabs, 1 Refill(s), eRx: [facility], TAKE 1 TABLET EVERY DAY Start Date: 07/23/15 Status: Ordered DuoNeb 0.5 mg-2.5 mg/3 mL inhalation solution 3 mL, Inhalation, QID, # 60 Each, 0 Refill(s), Pharmacy: [facility] # [id number] Start Date: 03/26/15 Status: Ordered ferrous sulfate 325 mg (65 mg elemental iron) oral tablet 1 tabs, Oral, BID, # 60 tabs, 11 Refill(s), Pharmacy: [facility], 1 tabs Oral BID Start Date: 05/07/14 Status: Ordered gabapentin 300 mg oral capsule See Instructions, TAKE 1 CAPSULE TWICE DAILY, # 180 caps, 1 Refill(s), eRx: [facility], TAKE 1 CAPSULE TWICE DAILY Start Date: 12/05/15 Status: Ordered Gas-X 160 mg, Chewed, TID, as needed for gas, 0 Refill(s) Start Date: 11/10/15 Status: Ordered glipiZIDE 2.5 mg oral tablet, extended release See Instructions, TAKE 1 TABLET TWICE DAILY, # 180 tabs, 1 Refill(s), eRx: [facility], TAKE 1 TABLET TWICE DAILY Start Date: 12/01/15 Status: Ordered Lipitor 40 mg oral tablet 1/2 tabs, Oral, Bedtime (once a day), # 90 tabs, 2 Refill(s), Pharmacy: [facility], 1/2 tabs Oral Bedtime (once a day) Start Date: 11/29/14 Status: Ordered multivitamin Daily, 0 Refill(s) Start Date: 11/09/13 Status: Ordered nitroglycerin 0.4 mg sublingual tablet 0.4 mg 1 tabs, SubLingual, q5min, as needed for chest pain, # 100 tabs, 1 Refill (s), Pharmacy: [facility], 1 tabs SubLingual q5min,PRN:as needed for chest pain Start Date: 05/19/15 Status: Ordered pindolol 5 mg oral tablet See Instructions, TAKE ONE TABLET BY MOUTH DAILY, # 90 tabs, eRx: [facility] #[id number], TAKE ONE TABLET BY MOUTH DAILY Start Date: 09/19/15 Status: Ordered promethazine-codeine 6.25 mg-10 mg/5 mL oral syrup 5 mL, Oral, q4hr, as needed for cough, # 120 mL, 1 Refill(s) Start Date: 04/15/15 Status: Ordered Protonix 40 mg oral delayed release tablet 40 mg 1 tabs, Oral, BID, # 180 tabs, 3 Refill(s), Pharmacy: [facility], 1 tabs Oral BID Start Date: 11/10/15 Status: Ordered Refresh Dry Eye Therapy drops, Eye-Both, QID, 0 Refill(s) Start Date: 11/09/13 Status: Ordered TRUE test blood glucose strips TRUE test blood glucose strips, See Instructions, Check 3 x a day / 3 x a week. Send 1 bottle of 100 strips., # 1 bottles, 3 Refill(s), Pharmacy: [facility], Check 3 x a day / 3 x a week. Send 1 bottle of 100 strips. Start Date: 01/22/15 Status: Ordered Vitamin D3 2000 intl units oral tablet Intl_Units tabs, Oral, Daily, 0 Refill(s) Start Date: 12/24/14 Status: Ordered Results Coagulation Most recent to 1 oldest [Reference Range]: PT Venous (01/05/16 2:38 PM) INR [0.8-1.2] 1.9 1 *HI* (01/05/16 2:38 PM) 1Result Comment: Normal (no anticoagulant): 0.8 - 1.2 Units Routine Therapeutic Range: 2.0 - 3.0 Units High Risk Therapeutic Range: 2.5 - 3.5 Units Immunizations Vaccine Date Refusal Reason influenza virus vaccine, inactivated 04/15/15 influenza virus vaccine, inactivated 02/11/14 influenza virus vaccine, live 03/16/12 pneumococcal 23-polyvalent vaccine 04/29/03 tetanus toxoid 05/27/95 Procedures Procedure Date Related Diagnosis Body Site Collection of venous blood by venipuncture 01/05/16 Laparoscopic repair of ventral hernia1 05/12/15 Colonoscopy2 03/28/14 Esophagogastroduodenoscopy and biopsy3 03/28/14 H/O esophagogastroduodenoscopy2009 S/P cardiac catheterization5 2002 S/P colonoscopy 1989 tailbone removed 1989 L ulnar transposition 1986 S/p breast biopsy, cyst 1982 D&C - Dilatation and curettage 1978 S/P carpal tunnel release 1978 L ear drum 1975 Back pain6, 7 CABG - Coronary artery bypass graft Cholecystectomy Lumpectomy8 Tonsillectomy9 Vaginal [id number] 1Robotic-assisted with incorporation of mesh 2Normal, no need to repeat unless symptoms warrant 3H. pylori negative. Marked gastritis. Duodenal diverticulum with adjacent ulcer. Placed on Carafate and PPI. Hold Coumadin. C PCP in 4 weeks 4Shazains ring, with dilation, gastric ulcers 5no stents, had blockage, collaterals developed; Dr. Malik 6back surgery 2003 7for herniated disc 8fibrocystic disease 1983 [id number] Social History Social History Type Response Smoking Status Never smoker Assessment and Plan No data available for this section
--- OUTSIDE RECORDS SUMMARY | 2016-09-26 11:07 | XMS REPORT | Referral Summary ---
Author Author [facility] Organization [facility] Address Unknown Phone Unavailable Care Team Providers Care Casing Worker Name Role Phone Agnes Colón Primary Care Physician [phone] Encounter VC Date(s): 03/26/15 - 03/26/15 [facility] [address] [place] [address]- Discharge Diagnosis: Cough Discharge Diagnosis: Inguinal hernia, right Discharge Disposition: 01-Home or Self Care Attending Physician: Soila Pepe PA-C Admitting Physician: Soila Pepe PA-C Vital Signs Most recent to 1 oldest [Reference Range]: Temperature Tympanic 37.7 degC [36.6-38.1 degC] (03/26/15 1:56 PM) Peripheral Pulse 106 bpm Rate [60-100 bpm] *HI* (03/26/15 1:56 PM) Respiratory Rate 28 br/min [14-20 br/min] *HI* (03/26/15 1:56 PM) Blood Pressure 100/58 mmHg [90-140/60-90 mmHg] (03/26/15 1:56 PM) SpO2 95 % (03/26/15 1:56 PM) Problem List Condition Effective Dates Status [...] QID, # 360 mL, 0 Refill(s), Pharmacy: [facility], 3 mL NEB QID Start Date: 03/21/15 Status: Ordered Aspir 81 mg, Oral, Daily, 0 Refill(s) Start Date: 11/09/13 Status: Ordered CeleXA 40 mg oral tablet See Instructions, TAKE 1 TABLET EVERY DAY, # 90 tabs, 2 Refill(s), eRx: [facility], TAKE 1 TABLET EVERY DAY Start Date: 11/28/14 Status: Ordered Coumadin 4 mg oral tablet 4 mg 1 tabs, Oral, Daily, # 90 tabs, 1 Refill(s), Pharmacy: [facility] Delivery, 1 tabs Oral Daily Start Date: 03/10/15 Status: Ordered DuoNeb 0.5 mg-2.5 mg/3 mL inhalation solution 3 mL, Inhalation, QID, # 60 Each, 0 Refill(s), Pharmacy: [facility] # [id number] Start Date: 03/26/15 Status: Ordered ferrous sulfate 325 mg (65 mg elemental iron) oral tablet 1 tabs, Oral, BID, # 60 tabs, 11 Refill(s), Pharmacy: [facility], 1 tabs Oral BID Start Date: 05/07/14 Status: Ordered GlipiZIDE XL 2.5 mg oral tablet, extended release 2.5 mg, Oral, BID, # 180 tabs, 1 Refill(s), Pharmacy: [facility] Delivery, 2.5 mg Oral BID Start Date: 03/10/15 Status: Ordered Lasix 20 mg oral tablet See Instructions, TAKE 1 TABLET EVERY DAY, # 90 tabs, 1 Refill(s), eRx: [facility] Delivery, TAKE 1 TABLET EVERY DAY Start Date: 09/09/14 Status: Ordered Lipitor 40 mg oral tablet 1/2 tabs, Oral, Bedtime (once a day), # 90 tabs, 2 Refill(s), Pharmacy: [facility] Delivery[facility], 1/2 tabs Oral Bedtime (once a day) Start Date: 11/29/14 Status: Ordered multivitamin Daily, 0 Refill(s) Start Date: 11/09/13 Status: Ordered Neurontin 300 mg oral capsule 300 mg 1 caps, Oral, BID, # 180 caps, 1 Refill(s), Pharmacy: [facility], 1 caps Oral BID Start Date: 03/10/15 Status: Ordered nitroglycerin 0.4 mg sublingual tablet 0.4 mg 1 tabs, SubLingual, q5min, as needed for chest pain, # 100 tabs, 1 Refill (s), Pharmacy: [facility] Mail Delivery, 1 tabs SubLingual q5min,PRN:as needed for chest pain Start Date: 03/10/15 Status: Ordered pindolol 5 mg oral tablet See Instructions, TAKE 1 TABLET EVERY DAY, # 90 tabs, 1 Refill(s), eRx: [facility], TAKE 1 TABLET EVERY DAY Start Date: 09/30/14 Status: Ordered Please draw lab work Please draw lab work, See Instructions, PT/INR monthly and fax results to DX: DVT 453.40, # 6 Each, 0 Refill(s) Start Date: 05/31/14 Status: Ordered predniSONE 20 mg oral tablet 60 mg 3 tabs, Oral, Daily, X 3 days, # 9 tabs, 0 Refill(s), Pharmacy: [facility] #[id number], 3 tabs Oral Daily,x3 days Start Date: 03/26/15 Stop Date: 03/29/15 Status: Ordered promethazine-codeine 6.25 mg-10 mg/5 mL oral syrup 5 mL, Oral, q4hr, as needed for cough, # 90 mL, 0 Refill(s) Start Date: 03/26/15 Status: Ordered Protonix 40 mg oral delayed release tablet 1 tabs, Oral, BID, # 60 tabs, 11 Refill(s), Pharmacy: [facility], 1 tabs Oral BID Start Date: 05/07/14 Status: Ordered Refresh Dry Eye Therapy drops, Eye-Both, QID, 0 Refill(s) Start Date: 11/09/13 Status: Ordered TRUE test blood glucose strips TRUE test blood glucose strips, See Instructions, Check 3 x a day / 3 x a week. Send 1 bottle of 100 strips., # 1 bottles, 3 Refill(s), Pharmacy: [facility], Check 3 x [...] Procedures Procedure Date Related Diagnosis Body Site Colonoscopy1 03/28/14 Esophagogastroduodenoscopy and biopsy2 03/28/14 H/O [...] stents, had blockage, collaterals developed; Dr. Malik 5back surgery 2003 6for herniated disc 7fibrocystic disease 1983 [id number] Social History Social History Type Response Smoking Status Never smoker Assessment and Plan Extracted from: Title: Ambulatory Patient Education Author: Soila Pepe PA-C Date : 03/26/15 Allergy Cough, Adult A cough is a reflex that helps clear your throat and airways. It can help heal the body or may be a reaction to an irritated airway. A cough may only last 2 or 3 weeks (acute) or may last more than 8 weeks (chronic). CAUSES Acute cough: Viral or bacterial infections. Chronic cough: Infections. Allergies. Asthma. Post-nasal drip. Smoking. Heartburn or acid reflux. Some medicines. Chronic lung problems (COPD). Cancer. SYMPTOMS Cough. Fever. Chest pain. Increased breathing rate. High-pitched whistling sound when breathing (wheezing). Colored mucus that you cough up (sputum). TREATMENT A bacterial cough may be treated with antibiotic medicine. A viral cough must run its course and will not respond to antibiotics. Your caregiver may recommend other treatments if you have a chronic cough. HOME CARE INSTRUCTIONS Only take [id number] or prescription medicines for pain, discomfort, or fever as directed by your caregiver. Use cough suppressants only as directed by your caregiver. Use a cold steam vaporizer or humidifier in your bedroom or home to help loosen secretions. Sleep in a semi-upright position if your cough is worse at night. Rest as needed. Stop smoking if you smoke. SEEK IMMEDIATE MEDICAL CARE IF: You have pus in your sputum. Your cough starts to worsen. You cannot control your cough with suppressants and are losing sleep. You begin coughing up blood. You have difficulty breathing. You develop pain which is getting worse or is uncontrolled with medicine. You have a fever. MAKE SURE YOU: Understand these instructions. Will watch your condition. Will get help right away if you are not doing well or get worse. Document Released: 11/05/2011 Document Revised: 07/31/2012 Document Reviewed: ExitCare Patient Information 2015 [employer] [facility]. This information is not intended to replace advice given to you by your health care provider. Make sure you discuss any questions you have with your health care provider. Surgery Inguinal Hernia, Adult Muscles help keep everything in the body in its proper place. But if a weak spot in the muscles develops, something can poke through. That is called a hernia. When this happens in the lower part of the belly (abdomen), it is called an inguinal hernia. (It takes its name from a part of the body in this region called the inguinal canal.) A weak spot in the wall of muscles lets some fat or part of the small intestine bulge through. An inguinal hernia can develop at any age. Men get them more often than women. CAUSES In adults, an inguinal hernia develops over time. It can be triggered by: Suddenly straining the muscles of the lower abdomen. Lifting heavy objects. Straining to have a bowel movement. Difficult bowel movements (constipation ) can lead to this. Constant coughing. This may be caused by smoking or lung disease. Being overweight. Being . Working at a job that requires long periods of standing or heavy lifting. Having had an inguinal hernia before. One type can be an emergency situation. It is called a strangulated inguinal hernia. It develops if part of the small intestine slips through the weak spot and cannot get back into the abdomen. The blood supply can be cut off. If that happens, part of the intestine may . This situation requires emergency surgery. SYMPTOMS Often, a small inguinal hernia has no symptoms. It is found when a healthcare provider does a physical exam. Larger hernias usually have symptoms. In adults, symptoms may include: A lump in the groin. This is easier to see when the person is standing. It might disappear when lying down. In men, a lump in the scrotum. Pain or burning in the groin. This occurs especially when lifting, straining or coughing. A dull ache or feeling of pressure in the groin. Signs of a strangulated hernia can include: A bulge in the groin that becomes very painful and tender to the touch. A bulge that turns red or purple. Fever, nausea and vomiting. Inability to have a bowel movement or to pass gas. DIAGNOSIS To decide if you have an inguinal hernia, a healthcare provider will probably do a physical examination. This will include asking questions about any symptoms you have noticed. The healthcare provider might feel the groin area and ask you to cough. If an inguinal hernia is felt, the healthcare provider may try to slide it back into the abdomen. Usually no other tests are needed. TREATMENT Treatments can vary. The size of the hernia makes a difference. Options include: Watchful waiting. This is often suggested if the hernia is small and you have had no symptoms. No medical procedure will be done unless symptoms develop. You will need to watch closely for symptoms. If any occur, contact your healthcare provider right away. Surgery. This is used if the hernia is larger or you have symptoms. Open surgery. This is usually an outpatient procedure (you will not stay overnight in a hospital). An cut (incision) is made through the skin in the groin. The hernia is put back inside the abdomen. The weak area in the muscles is then repaired by herniorrhaphy or hernioplasty. Herniorrhaphy: in this type of surgery, the weak muscles are sewn back together. Hernioplasty: a patch or mesh is used to close the weak area in the abdominal wall. Laparoscopy. In this procedure, a surgeon makes small incisions. A thin tube with a tiny video camera (called a laparoscope) is put into the abdomen. The surgeon repairs the hernia with mesh by looking with the video camera and using two long instruments. HOME CARE INSTRUCTIONS After surgery to repair an inguinal hernia: You will need to take pain medicine prescribed by your healthcare provider. Follow all directions carefully. You will need to take care of the wound from the incision. Your activity will be restricted for awhile. This will probably include no heavy lifting for several weeks. You also should not do anything too active for a few weeks. When you can return to work will depend on the type of job that you have. During "watchful waiting" periods, you should: Maintain a healthy weight. Eat a diet high in fiber (fruits, vegetables and whole grains). Drink plenty of fluids to avoid constipation. This means drinking enough water and other liquids to keep your urine clear or pale yellow. Do not lift heavy objects. Do not stand for long periods of time. Quit smoking. This should keep you from developing a frequent cough. SEEK MEDICAL CARE IF: A bulge develops in your groin area. You feel pain, a burning sensation or pressure in the groin. This might be worse if you are lifting or straining. You develop a fever of more than 100.5 F (38.1 C). SEEK IMMEDIATE MEDICAL CARE IF: Pain in the groin increases suddenly. A bulge in the groin gets bigger suddenly and does not go down. For men, there is sudden pain in the scrotum. Or, the size of the scrotum increases. A bulge in the groin area becomes red or purple and is painful to touch. You have nausea or vomiting that does not go away. You feel your heart beating much faster than normal. You cannot have a bowel movement or pass gas. You develop a fever of more than 102.0 F (38.9 C). Document Released: 09/25/2009 Document Revised: 07/31/2012 Document Reviewed: ExitCare Patient Information 2015 [employer]. This information is not intended to replace advice given to you by your health care provider. Make sure you discuss any questions you have with your health care provider. No follow up information was provided. Extracted from: Title: Office Visit Note Author: Soila Pepe PA-C Date: 03/26/15 Assessment/Plan Cough, Cough I'm not sure what else we can do to work up this cough. Discussed possibility of pertussis, but she has already been treated with z-rosanna. She would like to check this today anyways. Swab collected.At this time, will try DuoNeb QID. She is requesting a different cough medication. I d/w her that she has gotten the most potent cough suppressants there are (Tessalon and Tussionex), and she didn't have relief. Would like to try something else. Willtry codeine. Will also try a3 day course of [id number]. D/w pt that it will increase her BG levels, and she should be aware of this. If still not improving, will obtain chest CT and/or spirometry. She is already getting lab today for another physician that includes CBC. Ordered: Bordetella pertussis by PCR Office Visit Level 4 Est 34069 Inguinal hernia, right Unfortunately, I believe she has developed a hernia from coughing. At this time, it is not causing too much pain and it is easily reduced.D/w to hold area when coughing for now. If it ever becomes painful or is not reducible, present to ED immediately. Will most likely need repairat later date. Ordered: Office Visit Level 4 Est [id number] Orders: ipratropium-albuterol, 3 mL, Inhalation, QID, # 60 Each, 0 Refill(s), Pharmacy: [facility] #[id number] predniSONE, 60 mg 3 tabs, Oral, Daily, X 3 days, # 9 tabs, 0 Refill(s), Pharmacy: [facility] #[id number], 3 tabs Oral Daily,x3 days promethazine-codeine, 5 mL, Oral, q4hr, as needed for cough, # 90 mL, 0 Refill (s)
--- OUTSIDE RECORDS SUMMARY | 2016-09-26 11:07 | XMS REPORT | Referral Summary ---
Author Author [facility] Organization [facility] Address Unknown Phone Unavailable Care Team Providers Care Transition Coach Name Role Phone Agnes Colón Primary Care Physician [phone] Encounter VC Date(s): 04/21/16 - 04/21/16 [facility] [id number] [facility] [place] [id number] Discharge Disposition: 01-Home or Self Care Attending Physician: Neville Reina MD Admitting Physician: Neville Reina MD Vital Signs No data available for this section Problem List Condition Effective Dates Status Health [...] spasm(Confirmed) Fibrocystic Resolved disease(Confirmed) Gallbladder Resolved disease(Confirmed) GERD(Confirmed) Resolved Hearing Active loss(Confirmed) Hematochezia(Confirm 02/2011 [...] QID, # 360 mL, 0 Refill(s), Pharmacy: [facility] Delivery, 3 mL NEB QID Start Date: 03/21/15 Status: Ordered Aspir 81 mg, Oral, Daily, 0 Refill(s) Start Date: 11/09/13 Status: Ordered atorvastatin 40 mg oral tablet See Instructions, TAKE 1/2 TABLET EVERY DAY AT BEDTIME, # 45 tabs, 2 Refill(s), eRx: [facility], TAKE 1/2 TABLET EVERY DAY AT BEDTIME Start Date: 02/25/16 Status: Ordered calcitriol 0.25 mcg oral capsule 0.25 mcg 1 caps, Oral, BID, # 30 caps, 0 Refill(s) Start Date: 01/05/16 Status: Ordered CeleXA 40 mg oral tablet See Instructions, TAKE 1 TABLET EVERY DAY, # 90 tabs, 2 Refill(s), eRx: [facility], TAKE 1 TABLET EVERY DAY Start Date: 06/13/15 Status: Ordered DuoNeb 0.5 mg-2.5 mg/3 mL inhalation solution 3 mL, Inhalation, QID, # 60 Each, 0 Refill(s), Pharmacy: [facility] # [id number] Start Date: 03/26/15 Status: Ordered ferrous sulfate 325 mg (65 mg elemental iron) oral tablet 1 tabs, Oral, BID, # 60 tabs, 11 Refill(s), [facility], 1 tabs Oral BID Start Date: 05/07/14 Status: Ordered gabapentin 300 mg oral capsule See Instructions, TAKE 1 CAPSULE TWICE DAILY, # 180 caps, 1 Refill(s), eRx: [facility], TAKE 1 CAPSULE TWICE DAILY Start Date: 04/20/16 Status: Ordered Gas-X 160 mg, Chewed, TID, as needed for gas, 0 Refill(s) Start Date: 11/10/15 Status: Ordered glipiZIDE 2.5 mg oral tablet, extended release See Instructions, TAKE 1 TABLET TWICE DAILY, # 180 tabs, 1 Refill(s), eRx: [facility], TAKE 1 TABLET TWICE DAILY Start Date: 04/21/16 Status: Ordered multivitamin Daily, 0 Refill(s) Start Date: 11/09/13 Status: Ordered nitroglycerin 0.4 mg sublingual tablet 0.4 mg 1 tabs, SubLingual, q5min, as needed for chest pain, # 100 tabs, 1 Refill (s), Pharmacy: [facility], 1 tabs SubLingual q5min,PRN:as needed for chest pain Start Date: 05/19/15 Status: Ordered pindolol 5 mg oral tablet 5 mg 1 tabs, Oral, Daily, # 90 tabs, 3 Refill(s), Pharmacy: [facility] Delivery, 1 tabs Oral Daily Start Date: 01/06/16 Status: Ordered promethazine-codeine 6.25 mg-10 mg/5 mL oral syrup 5 mL, Oral, q4hr, as needed for cough, # 120 mL, 1 Refill(s) Start Date: 04/15/15 Status: Ordered Protonix 40 mg oral delayed release tablet 40 mg 1 tabs, Oral, BID, # 180 tabs, 3 Refill(s), Pharmacy: [facility], 1 tabs Oral BID Start Date: 11/10/15 Status: Ordered Refresh Dry Eye Therapy drops, Eye-Both, QID, 0 Refill(s) Start Date: 11/09/13 Status: Ordered TRUE test blood glucose strips TRUE test blood glucose strips, See Instructions, Check 3 x a day / 3 x a week. Send 1 bottle of 100 strips., # 1 bottles, 3 Refill(s), Pharmacy: [facility] Delivery, Check 3 x a day / 3 x a week. Send 1 bottle of 100 strips. Start Date: 03/08/16 Status: Ordered Vitamin D3 2000 intl units oral tablet Intl_Units tabs, Oral, Daily, 0 Refill(s) Start Date: 12/24/14 Status: Ordered warfarin 4 mg oral tablet See Instructions, TAKE 1 TABLET EVERY DAY, # 90 tabs, 1 Refill(s), eRx: [facility], TAKE 1 TABLET EVERY DAY Start Date: 04/01/16 Status: Ordered Results No data available for this section Immunizations Vaccine Date Refusal Reason influenza virus vaccine, inactivated 04/15/15 influenza virus vaccine, inactivated 02/11/14 influenza virus vaccine, live 03/16/12 pneumococcal 23-polyvalent vaccine 04/29/03 tetanus toxoid 05/27/95 Procedures Procedure Date Related Diagnosis Body Site Laparoscopic repair of ventral hernia1 05/12/15 Colonoscopy2 03/28/14 Esophagogastroduodenoscopy and biopsy3 03/28/14 H/O esophagogastroduodenoscopy4 2009 S/P cardiac catheterization2002 S/P colonoscopy 1989 tailbone removed 1989 L ulnar transposition 1986 S/p breast biopsy, cyst 1983 D&C - Dilatation and curettage 1978 S/P carpal tunnel release 1978 L ear drum 1974 Back pain6, 7 CABG - Coronary artery bypass graft Cholecystectomy Lumpectomy8 Tonsillectomy9 Vaginal 1Robotic-assisted with incorporation of mesh 2Normal, no need to repeat unless symptoms warrant 3H. pylori negative. Marked gastritis. Duodenal diverticulum with adjacent ulcer. Placed on Carafate and PPI. Hold Coumadin. C PCP in 4 weeks 4Sdashawns ring, with dilation, gastric ulcers 5no stents, had blockage, collaterals developed; Dr. Malik 6back surgery 2003 7for herniated disc 8fibrocystic disease 1983 [id number] Social History Social History Type Response Smoking Status Never smoker Assessment and Plan No data available for this section
--- OUTSIDE RECORDS SUMMARY | 2016-09-26 11:07 | XMS REPORT | Referral Summary ---
Author Author [facility] Organization [facility] Address Unknown Phone Unavailable Care Team Providers Care Supervisor Shipping Room Name Role Phone Agnes Colón Primary Care Physician [phone] Encounter VC Date(s): 03/17/15 - 03/17/15 [facility] [address] [place] [id number] Discharge Disposition: 01-Home or Self Care Attending Physician: Chase Colón MD Admitting Physician: Chase Colón MD Vital Signs Most recent to 1 oldest [Reference Range]: Temperature Tympanic 37.6 degC [36.6-38.1 degC] (03/17/15 1:12 PM) Peripheral Pulse 94 bpm Rate [60-100 bpm] (03/17/15 1:12 PM) Blood Pressure 128/70 mmHg [90-140/60-90 mmHg] (03/17/15 1:12 PM) SpO2 98 % (03/17/15 1:12 PM) Problem List Condition Effective Dates Status [...] albuterol 1.25 mg/3 mL (0.042%) inhalation solution mL, NEB, TID, 0 Refill(s) Start Date: 11/09/13 Status: Ordered Aspir 81 mg, Oral, Daily, 0 Refill(s) Start Date: 11/09/13 Status: Ordered Augmentin 875 mg-125 mg oral tablet 1 tabs, Oral, q12hr, X 10 days, # 20 tabs, 0 Refill(s), Pharmacy: [facility] #[id number] Start Date: 03/10/15 Stop Date: 03/20/15 Status: Ordered CeleXA 40 mg oral tablet See Instructions, TAKE 1 TABLET EVERY DAY, # 90 tabs, 2 Refill(s), eRx: [facility], TAKE 1 TABLET EVERY DAY Start Date: 11/28/14 Status: Ordered Coumadin 4 mg oral tablet 4 mg 1 tabs, Oral, Daily, # 90 tabs, 1 Refill(s), Pharmacy: [facility], 1 tabs Oral Daily Start Date: 03/10/15 Status: Ordered ferrous sulfate 325 mg (65 mg elemental iron) oral tablet 1 tabs, Oral, BID, # 60 tabs, 11 Refill(s), Pharmacy: [facility], 1 tabs Oral BID Start Date: 05/07/14 Status: Ordered GlipiZIDE XL 2.5 mg oral tablet, extended release 2.5 mg, Oral, BID, # 180 tabs, 1 Refill(s), Pharmacy: [facility], 2.5 mg Oral BID Start Date: 03/10/15 Status: Ordered Lasix 20 mg oral tablet See Instructions, TAKE 1 TABLET EVERY DAY, # 90 tabs, 1 Refill(s), eRx: [facility], TAKE 1 TABLET EVERY DAY Start Date: 09/09/14 Status: Ordered Lipitor 40 mg oral tablet 1/2 tabs, Oral, Bedtime (once a day), # 90 tabs, 2 Refill(s), Pharmacy: [facility], 1/2 tabs Oral Bedtime (once a day) Start Date: 11/29/14 Status: Ordered multivitamin Daily, 0 Refill(s) Start Date: 11/09/13 Status: Ordered Neurontin 300 mg oral capsule 300 mg 1 caps, Oral, BID, # 180 caps, 1 Refill(s), Pharmacy: [facility], 1 caps Oral BID Start Date: 03/10/15 Status: Ordered nitroglycerin 0.4 mg sublingual tablet 0.4 mg 1 tabs, SubLingual, q5min, as needed for chest pain, # 100 tabs, 1 Refill (s), Pharmacy: [facility], 1 tabs SubLingual [...] Instructions, PT/INR monthly and fax results to [phone] DX: DVT 453.40, # 6 Each, 0 Refill(s) Start Date: 05/31/14 Status: Ordered Protonix 40 mg oral delayed release tablet 1 tabs, Oral, BID, # 60 tabs, 11 Refill(s), Pharmacy: [facility], 1 tabs Oral BID Start Date: 05/07/14 Status: Ordered Refresh Dry Eye Therapy drops, Eye-Both, QID, 0 Refill(s) Start Date: 11/09/13 Status: Ordered Tessalon 200 mg oral capsule 200 mg 1 caps, Oral, TID, X 10 days, # 30 caps, 0 Refill(s), Pharmacy: [facility] #[id number], 1 caps Oral TID,x10 days Start Date: 03/10/15 Stop Date: 03/20/15 Status: Ordered TRUE test blood glucose strips TRUE test blood glucose strips, See Instructions, Check 3 x a day / 3 x a week. Send 1 bottle of 100 strips., # 1 bottles, 3 Refill(s), Pharmacy: [facility], Check 3 x a day / 3 x a week. Send 1 bottle of 100 strips. Start Date: 01/22/15 Status: Ordered Tussionex PennKinetic 10 mg-8 mg/5 mL oral suspension, extended release 5 mL, Oral, q12hr, as needed for cough, # 120 mL, 0 Refill(s) Start Date: 03/17/15 Stop Date: 03/27/15 Status: Ordered Vitamin D3 2000 intl units oral tablet Intl_Units tabs, Oral, Daily, 0 Refill(s) Start Date: 12/24/14 Status: Ordered Zithromax Z-Ilan 250 mg oral tablet 1 packets, Oral, Daily, as directed on package labeling, X 5 days, # 6 tabs, 0 Refill(s) Start Date: 03/17/15 Stop Date: 03/22/15 Status: Ordered Results No data available for [...] 2003 6for herniated disc 7fibrocystic disease 1983 [id number] Social History Social History Type Response Smoking Status Never smoker Assessment and Plan No data available for this section
--- OUTSIDE RECORDS SUMMARY | 2016-09-26 11:07 | XMS REPORT | Referral Summary ---
Author Organization Unknown Address Unknown Phone Unavailable Care Team Providers Care Agricultural Extension Specialist Name Role Phone Agnes Colón Primary Care Physician [phone] Encounter VC Date(s): 09/17/14 - 09/17/14 [facility] [place] [address] [place] [address] Discharge Diagnosis: Diabetes Discharge Diagnosis: Chronic renal failure, stage 2 (mild) Discharge Disposition: Home or Self Care Attending Physician: Chase Colón MD Admitting Physician: Chase Colón MD Vital Signs Most recent to 1 oldest [Reference Range]: Peripheral Pulse 84 bpm Rate [60-100 bpm] (09/17/14 2:48 PM) Blood Pressure 132/76 mmHg [90-140/60-90 mmHg] (09/17/14 2:48 PM) Problem List Condition Effective Dates Status Health Status Informant Duodenal ulcer NOS, Active obst(Confirmed) Acute gastritis with Active bleeding(Confirmed) Angina(Confirmed)1 Active Anxiety(Confirmed) Resolved Arthritis(Confirmed) Resolved Blood [...] sicca, in Sjogren's syndrome(Confirmed) Leukocytosis(Confirm Active ed) Osteoarthritis(Confi Resolved rmed) Overweight(Confirmed Active ) 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) Scarlet Resolved fever(Confirmed) Bilateral Active sensorineural hearing loss(Confirmed) Sinus Active infections(Confirmed ) Sinus Active problems(Confirmed) Tension Active headache(Confirmed) 1takes metoprolol Allergies, Adverse Reactions, Alerts Substance Reaction Severity Status Red Dye Pruritus Medium Active Medications acetaminophen 0 Refill(s) Start Date: 11/09/13 Status: Ordered albuterol 1.25 mg/3 mL (0.042%) inhalation solution mL, NEB, TID, 0 Refill(s) Start Date: 11/09/13 Status: Ordered Aspir 81 mg, Oral, Daily, 0 Refill(s) Start Date: 11/09/13 Status: Ordered Carafate 1 g oral tablet 1 tabs, Oral, QID, # 120 tabs, 11 Refill(s), Pharmacy: [facility] #[id number] , 1 tabs Oral QID Start Date: 03/28/14 Status: Ordered CeleXA 40 mg oral tablet 1 tabs, Oral, Daily, # 90 tabs, 2 Refill(s), Pharmacy: [facility], 1 tabs Oral Daily Start Date: 01/07/14 Status: Ordered Coumadin 2 mg oral tablet See Instructions, TAKE 2 TABLETS EVERY DAY, # 180 tabs, 1 Refill(s), eRx: [facility], TAKE 2 TABLETS EVERY DAY Special Instructions: TAKE 2 TABLETS EVERY DAY Start Date: 03/27/14 Status: Ordered ferrous sulfate 325 mg (65 mg elemental iron) oral tablet 1 tabs, Oral, BID, # 60 tabs, 11 Refill(s), Pharmacy: [facility], 1 tabs Oral BID Start Date: 05/07/14 Status: Ordered glipiZIDE XL Oral, Daily, 0 Refill(s) Start Date: 11/09/13 Status: Ordered Lasix 20 mg oral tablet See Instructions, TAKE 1 TABLET EVERY DAY, # 90 tabs, 1 Refill(s), eRx: [facility], TAKE 1 TABLET EVERY DAY Special Instructions: TAKE 1 TABLET EVERY DAY Start Date: 09/09/14 Status: Ordered Lipitor 40 mg oral tablet 1/2 tabs, Oral, Bedtime (once a day), # 90 tabs, 0 Refill(s), Pharmacy: [facility], 1/2 tabs Oral Bedtime (once a day) Start Date: 07/19/14 Status: Ordered multivitamin Daily, 0 Refill(s) Start Date: 11/09/13 Status: Ordered Neurontin 300 mg oral capsule 1 caps, Oral, BID, # 180 caps, 1 Refill(s), Pharmacy: [facility], 1 caps Oral BID Start Date: 05/07/14 Status: Ordered nitroglycerin 0.4 mg sublingual tablet 1 tabs, SubLingual, as needed for chest pain, # 100 tabs, 0 Refill(s) Start Date: 11/13/13 Status: Ordered pindolol 5 mg oral tablet 1 tabs, Oral, Daily, # 90 tabs, 1 Refill(s), Pharmacy: [facility], 1 tabs Oral Daily Start Date: 05/07/14 Status: Ordered Please draw lab work Please draw lab work, See Instructions, PT/INR monthly and fax results to [phone] DX: DVT 453.40, # 6 Each, 0 Refill(s) Special Instructions: PT/INR monthly and fax results to [phone] DX: DVT 453.40 Start Date: 05/31/14 Status: Ordered Protonix 40 mg oral delayed release tablet 1 tabs, Oral, BID, # 60 tabs, 11 Refill(s), Pharmacy: [facility], 1 tabs Oral BID Start Date: 05/07/14 Status: Ordered Refresh Dry Eye Therapy drops, Eye-Both, QID, 0 Refill(s) Start Date: 11/09/13 Status: Ordered Results Hematology Most recent to 1 oldest [Reference Range]: WBC [4.8-10.8 K/uL] 9.1 K/uL (09/17/14 3:33 PM) RBC [4.00-5.20 M/uL] 3.75 M/uL *LOW* (09/17/14 3:33 PM) Hgb [12.0-16.0 11.9 gm/dL gm/dL] *LOW* (09/17/14 3:33 PM) Hct [37.0-47.0 %] 36.2 % *LOW* (09/17/14 3:33 PM) MCV [82.0-99.0 fL] 96.5 fL (09/17/14 3:33 PM) MCH [27.0-32.0 pg] 31.7 pg (09/17/14 3:33 PM) MCHC [32.0-36.0 32.9 gm/dL gm/dL] (09/17/14 3:33 PM) RDW [11.5-14.5 %] 14.9 % *HI* (09/17/14 3:33 PM) Platelet [150-400 296 K/uL K/uL] (09/17/14 3:33 PM) MPV [8.8-14.8 fL] 10.8 fL (09/17/14 3:33 PM) Chemistry Most recent to 1 oldest [Reference Range]: Hgb A1c [4.1-5.6 %] 6.0 % *HI* (09/17/14 3:33 PM) eAvg Glucose 125.5 mg/dL (09/17/14 3:33 PM) Immunizations Vaccine Date Refusal Reason influenza virus vaccine, inactivated 02/11/14 influenza virus vaccine, live 03/16/12 pneumococcal 23-polyvalent vaccine 04/29/03 tetanus toxoid 05/27/95 Procedures Procedure Date Related Diagnosis Body Site Collection of venous blood by venipuncture 09/17/14 Colonoscopy1 03/28/14 Esophagogastroduodenoscopy and biopsy2 03/28/14 H/O esophagogastroduodenoscopy3 2009 S/P cardiac catheterization2002 S/P colonoscopy 1989 [...] 2003 6for herniated disc 7fibrocystic disease 1983 [id number] Social History Social History Type Response Smoking Status Never smoker Assessment and Plan No data available for this section
--- OUTSIDE RECORDS SUMMARY | 2016-09-26 11:07 | XMS REPORT | Continuity of Care Document ---
Author Author [facility] Organization [facility] Address Unknown Phone Unavailable Allergies Medications Problems Procedures Results Encounters ACCT No. Visit Date/Time Discharge Status Pt. Type Provider Facility Loc./Unit Complaint [id number] 04/17/2013 08:04:00 04/17/2013 23 :59:59 CLS Outpatient
--- OUTSIDE RECORDS SUMMARY | 2016-09-26 11:07 | XMS REPORT | Referral Summary ---
Author Author [facility] Organization [facility] Address Unknown Phone Unavailable Care Team Providers Care Supervisor Fish Processing Name Role Phone Agnes Colón Primary Care Physician [phone] Encounter [facility] [id number] Date(s): 03/10/15 - 03/10/15 [facility] [address] [place] [address] Discharge Diagnosis: Diabetes Discharge Diagnosis: Sinus infections Discharge Diagnosis: Bilateral sensorineural hearing loss Discharge Disposition: -Home or Self Care Attending Physician: Chase Colón MD Admitting Physician: Chase Colón MD Vital Signs Most recent to 1 oldest [Reference Range]: Blood Pressure 112/64 mmHg [90-140/60-90 mmHg] (03/10/15 1:03 PM) Problem List Condition Effective Dates Status [...] QID, # 360 mL, 0 Refill(s), Pharmacy: [facility], 3 mL NEB QID Start Date: 03/21/15 Status: Ordered Aspir 81 mg, Oral, Daily, 0 Refill(s) Start Date: 11/09/13 Status: Ordered CeleXA 40 mg oral tablet See Instructions, TAKE 1 TABLET EVERY DAY, # 90 tabs, 2 Refill(s), eRx: [facility], TAKE 1 TABLET EVERY DAY Start Date: 06/13/15 Status: Ordered Coumadin 4 mg oral tablet See Instructions, TAKE 1 TABLET EVERY DAY, # 90 tabs, 1 Refill(s), eRx: [facility], TAKE 1 TABLET EVERY DAY Start Date: 07/23/15 Status: Ordered Discontinue oxygen therapy Discontinue oxygen therapy, See Instructions, Pt no longer require oxygen therapy. Please discontinue orders and pick up driver equipment. Fax to [facility] [phone], # 1 Each, 0 Refill(s) Start Date: 05/19/15 Status: Ordered DuoNeb 0.5 mg-2.5 mg/3 mL inhalation solution 3 mL, Inhalation, QID, # 60 Each, 0 Refill(s), Pharmacy: [facility] # [id number] Start Date: 03/26/15 Status: Ordered ferrous sulfate 325 mg (65 mg elemental iron) oral tablet 1 tabs, Oral, BID, # 60 tabs, 11 Refill(s), Pharmacy: [facility], 1 tabs Oral BID Start Date: 05/07/14 Status: Ordered GlipiZIDE XL 2.5 mg oral tablet, extended release 2.5 mg, Oral, BID, # 180 tabs, 1 Refill(s), Pharmacy: [facility], 2.5 mg Oral BID Start Date: 03/10/15 Status: Ordered Lasix 20 mg oral tablet See Instructions, TAKE 1 TABLET EVERY DAY, # 90 tabs, eRx: [facility], TAKE 1 TABLET EVERY DAY Start Date: 08/15/15 Status: Ordered Lipitor 40 mg oral tablet 1/2 tabs, Oral, Bedtime (once a day), # 90 tabs, 2 Refill(s), Pharmacy: [facility], 1/2 tabs Oral Bedtime (once a day) Start Date: 11/29/14 Status: Ordered multivitamin Daily, 0 Refill(s) Start Date: 11/09/13 Status: Ordered Neurontin 300 mg oral capsule See Instructions, TAKE 1 CAPSULE TWICE DAILY, # 180 caps, 1 Refill(s), eRx: [facility], TAKE 1 CAPSULE TWICE DAILY Start Date: 06/03/15 Status: Ordered nitroglycerin 0.4 mg sublingual tablet 0.4 mg 1 tabs, SubLingual, q5min, as needed for chest pain, # 100 tabs, 1 Refill (s), Pharmacy: [facility], 1 tabs SubLingual q5min,PRN:as needed for chest pain Start Date: 05/19/15 Status: Ordered pindolol 5 mg oral tablet See Instructions, TAKE ONE TABLET BY MOUTH DAILY, # 90 tabs, eRx: [facility] #[id number], TAKE ONE TABLET BY MOUTH DAILY Start Date: 09/19/15 Status: Ordered Please draw lab work Please [...] BID, # 180 tabs, 1 Refill(s), Pharmacy: [facility], 1 tabs Oral BID Start Date: 05/19/15 Status: Ordered Refresh Dry Eye Therapy drops, Eye-Both, QID, 0 Refill(s) Start Date: 11/09/13 Status: Ordered TRUE test blood glucose strips TRUE test blood glucose strips, See Instructions, Check 3 x a day / 3 x a week. Send 1 bottle of 100 strips., # 1 bottles, 3 Refill(s), Pharmacy: [facility], Check 3 [...] artery bypass graft Cholecystectomy Lumpectomy8 Tonsillectomy9 Vaginal [id number] 1Robotic-assisted with incorporation of mesh 2Normal, no need to repeat unless symptoms warrant 3H. pylori negative. Marked gastritis. Duodenal diverticulum with adjacent ulcer. Placed on Carafate and PPI. Hold Coumadin. C PCP in 4 weeks 4Shatzkis ring, with dilation, gastric ulcers 5no stents, had blockage, collaterals developed; Dr. Malik 6back surgery 2003 7for herniated disc 8fibrocystic disease 1983 [id number] Social History Social History Type Response Smoking Status Never smoker Assessment and Plan Extracted from: Title: Ambulatory Patient Education Author: Chase Colón MD Date: Allergy Sinusitis Sinusitis is redness, soreness, and inflammation of the paranasal sinuses. Paranasal sinuses are air pockets within the bones of your face (beneath the eyes, the middle of the forehead, or above the eyes). In healthy paranasal sinuses, mucus is able to drain out, and air is able to circulate through them by way of your nose. However, when your paranasal sinuses are inflamed, mucus and air can become trapped. This can allow bacteria and other germs to grow and cause infection. Sinusitis can develop quickly and last only a short time (acute) or continue over a long period (chronic). Sinusitis that lasts for more than 12 weeks is considered chronic. CAUSES Causes of sinusitis include: Allergies. Structural abnormalities, such as displacement of the cartilage that separates your nostrils (deviated septum), which can decrease the air flow through your nose and sinuses and affect sinus drainage. Functional abnormalities, such as when the small hairs (cilia) that line your sinuses and help remove mucus do not work properly or are not present. SIGNS AND SYMPTOMS Symptoms of acute and chronic sinusitis are the same. The primary symptoms are pain and pressure around the affected sinuses. Other symptoms include: Upper toothache. Earache. Headache. Bad breath. Decreased sense of smell and taste. A cough, which worsens when you are lying flat. Fatigue. Fever. Thick drainage from your nose, which often is green and may contain pus ( purulent). Swelling and warmth over the affected sinuses. DIAGNOSIS Your health care provider will perform a physical exam. During the exam, your health care provider may: Look in your nose for signs of abnormal growths in your nostrils (nasal polyps). Tap over the affected sinus to check for signs of infection. View the inside of your sinuses (endoscopy) using an imaging device that has a light attached (endoscope). If your health care provider suspects that you have chronic sinusitis, one or more of the following tests may be recommended: Allergy tests. Nasal culture. A sample of mucus is taken from your nose, sent to a lab, and screened for bacteria. Nasal cytology. A sample of mucus is taken from your nose and examined by your health care provider to determine if your sinusitis is related to an allergy. TREATMENT Most cases of acute sinusitis are related to a viral infection and will resolve on their own within 10 days. Sometimes medicines are prescribed to help relieve symptoms (pain medicine, decongestants, nasal steroid sprays, or saline sprays) . However, for sinusitis related to a bacterial infection, your health care provider will prescribe antibiotic medicines. These are medicines that will help kill the bacteria causing the infection. Rarely, sinusitis is caused by a fungal infection. In theses cases, your health care provider will prescribe antifungal medicine. For some cases of chronic sinusitis, surgery is needed. Generally, these are cases in which sinusitis recurs more than 3 times per year, despite other treatments. HOME CARE INSTRUCTIONS Drink plenty of water. Water helps thin the mucus so your sinuses can drain more easily. Use a humidifier. Inhale steam 3 to 4 times a day (for example, sit in the bathroom with the shower running). Apply a warm, moist washcloth to your face 3 to 4 times a day, or as directed by your health care provider. Use saline nasal sprays to help moisten and clean your sinuses. Take medicines only as directed by your health care provider. If you were prescribed either an antibiotic or antifungal medicine, finish it all even if you start to feel better. SEEK IMMEDIATE MEDICAL CARE IF: You have increasing pain or severe headaches. You have nausea, vomiting, or drowsiness. You have swelling around your face. You have vision problems. You have a stiff neck. You have difficulty breathing. MAKE SURE YOU: Understand these instructions. Will watch your condition. Will get help right away if you are not doing well or get worse. Document Released: 05/09/2006 Document Revised: 09/23/2014 Document Reviewed: ExitCare Patient Information 2015 [employer]. This information is not intended to replace advice given to you by your health care provider. Make sure you discuss any questions you have with your health care provider. Family Medicine Blood Glucose Monitoring Monitoring your blood glucose (also know as blood sugar) helps you to manage your diabetes. It also helps you and your health care provider monitor your diabetes and determine how well your treatment plan is working. WHY SHOULD YOU MONITOR YOUR BLOOD GLUCOSE? It can help you understand how food, exercise, and medicine affect your blood glucose. It allows you to know what your blood glucose is at any given moment. You can quickly tell if you are having low blood glucose (hypoglycemia) or high blood glucose (hyperglycemia). It can help you and your health care provider know how to adjust your medicines. It can help you understand how to manage an illness or adjust medicine for exercise. WHEN SHOULD YOU TEST? Your health care provider will help you decide how often you should check your blood glucose. This may depend on the type of diabetes you have, your diabetes control, or the types of medicines you are taking. Be sure to write down all of your blood glucose readings so that this information can be reviewed with your health care provider. See below for examples of testing times that your health care provider may suggest. Type 1 Diabetes Test 4 times a day if you are in good control, using an insulin pump, or perform multiple daily injections. If your diabetes is not well controlled or if you are sick, you may need to monitor more often. It is a good idea to also monitor: Before and after exercise. Between meals and 2 hours after a meal. Occasionally between 2:00 a.m. and 3:00 a.m. Type 2 Diabetes It can vary with each person, but generally, if you are on insulin, test 4 times a day. If you take medicines by mouth (orally), test 2 times a day. If you are on a controlled diet, test once a day. If your diabetes is not well controlled or if you are sick, you may need to monitor more often. HOW TO MONITOR YOUR BLOOD GLUCOSE Supplies Needed Blood glucose meter. Test strips for your meter. Each meter has its own strips. You must use the strips that go with your own meter. A pricking needle (lancet). A device that holds the lancet (lancing device). A journal or log book to write down your results. Procedure Wash your hands with soap and water. Alcohol is not preferred. Prick the side of your finger (not the tip) with the lancet. Gently milk the finger until a small drop of blood appears. Follow the instructions that come with your meter for inserting the test strip, applying blood to the strip, and using your blood glucose meter. Other Areas to Get Blood for Testing Some meters allow you to use other areas of your body (other than your finger) to test your blood. These areas are called alternative sites. The most common alternative sites are: The forearm. The thigh. The back area of the lower leg. The palm of the hand. The blood flow in these areas is slower. Therefore, the blood glucose values you get may be delayed, and the numbers are different from what you would get from your fingers. Do not use alternative sites if you think you are having hypoglycemia. Your reading will not be accurate. Always use a finger if you are having hypoglycemia. Also, if you cannot feel your lows (hypoglycemia unawareness), always use your fingers for your blood glucose checks. ADDITIONAL TIPS FOR GLUCOSE MONITORING Do not reuse lancets. Always carry your supplies with you. All blood glucose meters have a 24-hour "hotline" number to call if you have questions or need help. Adjust (calibrate) your blood glucose meter with a control solution after finishing a few boxes of strips. BLOOD GLUCOSE RECORD KEEPING It is a good idea to keep a daily record or log of your blood glucose readings. Most glucose meters, if not all, keep your glucose records stored in the meter. Some meters come with the ability to download your records to your home computer. Keeping a record of your blood glucose readings is especially helpful if you are wanting to look for patterns. Make notes to go along with the blood glucose readings because you might forget what happened at that exact time. Keeping good records helps you and your health care provider to work together to achieve good diabetes management. Document Released: 05/11/2004 Document Revised: 09/23/2014 Document Reviewed: ExitCare Patient Information 2015 [employer] [facility]. This information is not intended to replace advice given to you by your health care provider. Make sure you discuss any questions you have with your health care provider. No follow up information was provided. Extracted from: Title: Office Visit Note Author: Chase Colón MD Date: 03/10/15 Assessment/Plan Acute recurrent maxillary sinusitis, Sinus infections Tessalon Perles 200mg tid. Augmentin 875mg bid. Ordered: Office Visit Level 4 Est 60896 Bilateral sensorineural hearing loss, Sensorineural hearing loss, bilateral Ordered: Office Visit Level 4 Est 10396 Diabetes, Diabetes Continue with the current medications. Ordered: Hemoglobin A1c Office Visit Level 4 Est 03074 Orders: gabapentin, 300 mg 1 caps, Oral, BID, # 180 caps, 1 Refill(s), Pharmacy: [facility], 1 caps Oral BID glipiZIDE, 2.5 mg, Oral, BID, # 180 tabs, 1 Refill(s), [facility], 2.5 mg Oral BID nitroglycerin, 0.4 mg 1 tabs, SubLingual, q5min, as needed for chest pain, # 100 tabs, 1 Refill(s), Pharmacy: [facility], 1 tabs SubLingual q5min,PRN:as needed for chest pain warfarin, 4 mg 1 tabs, Oral, Daily, # 90 tabs, 1 Refill(s), Pharmacy: [facility], 1 tabs Oral Daily
--- OUTSIDE RECORDS SUMMARY | 2016-09-26 11:07 | XMS REPORT | Referral Summary ---
Author Author [facility] Organization [facility] Address Unknown Phone Unavailable Care Team Providers Care Licensed Direct Entry Midwife Name Role Phone Agnes Colón Primary Care Physician [phone] Encounter [facility] [id number] Date(s): 05/27/15 - 05/27/15 [facility] [address] [place] [address] [place] [id number] Discharge Diagnosis: S/p laparoscopic hernia repair Discharge Disposition: 01-Home or Self Care Attending Physician: Yas Lopez APRN Admitting Physician: Yas Lopez APRN Vital Signs Most recent to 1 oldest [Reference Range]: Temperature Tympanic 37 degC [36.6-38.1 degC] (05/27/15 10:58 AM) Problem List Condition Effective Dates Status [...] QID, # 360 mL, 0 Refill(s), Pharmacy: [facility], 3 mL NEB QID Start Date: 03/21/15 Status: Ordered Aspir 81 mg, Oral, Daily, 0 Refill(s) Start Date: 11/09/13 Status: Ordered CeleXA 40 mg oral tablet See Instructions, TAKE 1 TABLET EVERY DAY, # 90 tabs, 2 Refill(s), eRx: [facility], TAKE 1 TABLET EVERY DAY Start Date: 11/28/14 Status: Ordered Coumadin 4 mg oral tablet 4 mg 1 tabs, Oral, Daily, # 90 tabs, 1 Refill(s), Pharmacy: [facility], 1 tabs Oral Daily Start Date: 03/10/15 Status: Ordered Discontinue oxygen therapy Discontinue oxygen therapy, See Instructions, Pt no longer require oxygen therapy. 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 Fax to [facility] [phone], # 1 Each, 0 Refill(s) Start Date: 05/19/15 Status: Ordered DuoNeb 0.5 mg-2.5 mg/3 mL inhalation solution 3 mL, Inhalation, QID, # 60 Each, 0 Refill(s), Pharmacy: [facility] # [id number] Start Date: 03/26/15 Status: Ordered ferrous sulfate 325 mg (65 mg elemental iron) oral tablet 1 tabs, Oral, BID, # 60 tabs, 11 Refill(s), [facility], 1 tabs Oral BID Start Date: 05/07/14 Status: Ordered GlipiZIDE XL 2.5 mg oral tablet, extended release 2.5 mg, Oral, BID, # 180 tabs, 1 Refill(s), Pharmacy: [facility], 2.5 mg Oral BID Start Date: 03/10/15 Status: Ordered Lasix 20 mg oral tablet See Instructions, TAKE 1 TABLET EVERY DAY, # 90 tabs, eRx: [facility], TAKE 1 TABLET EVERY DAY Start Date: 04/16/15 Status: Ordered Lipitor 40 mg oral tablet 1/2 tabs, Oral, Bedtime (once a day), # 90 tabs, 2 Refill(s), Pharmacy: [facility], 1/2 tabs Oral Bedtime (once a day) Start Date: 11/29/14 Status: Ordered multivitamin Daily, 0 Refill(s) Start Date: 11/09/13 Status: Ordered Neurontin 300 mg oral capsule 300 mg 1 caps, Oral, BID, # 180 caps, 1 Refill(s), Pharmacy: [facility], 1 caps Oral BID Start Date: 03/10/15 Status: Ordered nitroglycerin 0.4 mg sublingual tablet 0.4 mg 1 tabs, SubLingual, q5min, as needed for chest pain, # 100 tabs, 1 Refill (s), Pharmacy: [facility], 1 tabs SubLingual q5min,PRN:as needed for chest pain Start Date: 05/19/15 Status: Ordered pindolol 5 mg oral tablet See Instructions, TAKE 1 TABLET EVERY DAY, # 90 tabs, 0 Refill(s), Pharmacy: [facility] #[id number], TAKE 1 TABLET EVERY DAY Start Date: [...] BID, # 180 tabs, 1 Refill(s), Pharmacy: [facility], 1 tabs Oral BID [...] 1 bottles, 3 Refill(s), Pharmacy: [facility], Check 3 x a [...] 2003 7for herniated disc 8fibrocystic disease 1983 [id number] Social History Social History Type Response Smoking Status Never smoker Assessment and Plan Extracted from: Title: Ambulatory Patient Education Author: Yas Lopez APRN Date : 05/27/15 Family Medicine Preventing Constipation After Surgery Constipation is when a person has fewer than 3 bowel movements a week; has difficulty having a bowel movement; or has stools that are dry, hard, or larger than normal. Many things can make constipation likely after surgery. They include: Medicines, especially numbing medicines (anesthetics) and very strong pain medicines called narcotics. Feeling stressed because of the surgery. Eating different foods than normal. Being less active. Symptoms of constipation include: Having fewer than 3 bowel movements a week. Straining to have a bowel movement. Having hard, dry, or xpibaa-dpmm-fnlssl stools. Feeling full or bloated. Having pain in the lower abdomen. Not feeling relief after having a bowel movement. HOME CARE INSTRUCTIONS Diet Eat foods that have a lot of fiber. These include fruits, vegetables, whole grains, and beans. Limit foods high in fat and processed sugars. These include kyrgyz fries, hamburgers, cookies, and candy. Take a fiber supplement as directed. If you are not taking a fiber supplement and think that you are not getting enough fiber from foods, talk to your health care provider about adding a fiber supplement to your diet. Drink clear fluids, especially water. Avoid drinking alcohol, caffeine, and soda. These can make constipation worse. Drink enough fluids to keep your urine clear or pale yellow. Activity After surgery, return to your normal activities slowly or when your health care provider says it is okay. Start walking as soon as you can. Try to go a little farther each day. Once your health care provider approves, do some sort of regular exercise. This helps prevent constipation. Bowel Movements Go to the restroom when you have the urge to go. Do not hold it in. Try drinking something hot to get a bowel movement started. Keep track of how often you use the restroom. If you miss 23 bowel movements, talk to your health care provider about medicines that prevent constipation. Your health care provider may suggest a stool softener, laxative, or fiber supplement. Only take rphn-gpl-xfmntls or prescription medicines as directed by your health care provider. Do not take other medicines without talking to your health care provider first. If you become constipated and take a medicine to make you have a bowel movement, the problem may get worse. Other kinds of medicine can also make the problem worse. SEEK MEDICAL CARE IF: You used stool softeners or laxatives and still have not had a bowel movement within 2448 hours after using them. You have not had a bowel movement in 3 days. SEEK IMMEDIATE MEDICAL CARE IF: Your constipation lasts for more than 4 days or gets worse. You have bright red blood in your stool. You have abdominal or rectal pain. You have very bad cramping. You have thin, pencil-like stools. You have unexplained weight loss. You have a fever or persistent symptoms for more than 23 days. You have a fever and your symptoms suddenly get worse. Document Released: 09/03/2013 Document Revised: 09/23/2014 Document Reviewed: [facility] Patient Information 2015 [employer] This information is not intended to replace advice given to you by your health care provider. Make sure you discuss any questions you have with your health care provider. No follow up information was provided. Extracted from: Title: Office Visit Note Author: Yas Lopez APRN Date: 05/27/15 Assessment/Plan 1.S/p laparoscopic hernia repair I think it's fine to proceed with plans to travel to [place] for the winter. Continue to use common sense. If an activity is causing pain, that is a sign that you need to "back off" and wait a little longer before lifting something that heavy or doing that activity. Do not hesitate to contact us with any surgical concerns. Continue with your general medical care through your primary care physician. Ordered: Postoperative Est [id number]
--- OUTSIDE RECORDS SUMMARY | 2016-09-26 11:07 | XMS REPORT | Referral Summary ---
Author Author [facility] Organization [facility] Address Unknown Phone Unavailable Care Team Providers Care Lining Layer Name Role Phone Agnes Colón Primary Care Physician [phone] Encounter [facility] [id number] Date(s): 11/04/14 - 11/04/14 [facility] [address] [place] [id number] Discharge Diagnosis: Coronary heart disease Discharge Diagnosis: Diabetes Discharge Diagnosis: Chronic kidney disease Discharge Diagnosis: Dyspnea Discharge Diagnosis: Atrial fibrillation Discharge Disposition: -Home or Self Care Attending Physician: Compa Malik MD Admitting Physician: Compa Malik MD Referring Physician: Compa Malik MD Vital Signs Most recent to 1 oldest [Reference Range]: Peripheral Pulse 72 bpm Rate [60-100 bpm] (11/04/14 9:35 AM) Blood Pressure 124/76 mmHg [90-140/60-90 mmHg] (11/04/14 9:35 AM) Problem List Condition Effective Dates Status [...] Refill(s), Pharmacy: [facility], 3 mL NEB QID Start Date: 03/21/15 Status: Ordered Aspir 81 mg, Oral, Daily, 0 Refill(s) Start Date: 11/09/13 Status: Ordered CeleXA 40 mg oral tablet See Instructions, TAKE 1 TABLET EVERY DAY, # 90 tabs, 2 Refill(s), eRx: [facility], TAKE 1 TABLET EVERY DAY Start Date: 11/28/14 Status: Ordered Coumadin 4 mg oral tablet 4 mg 1 tabs, Oral, Daily, # 90 tabs, 1 Refill(s), Pharmacy: [facility] [employer] [facility] [facility], 1 tabs Oral Daily Start Date: 03/10/15 Status: Ordered DuoNeb 0.5 mg-2.5 mg/3 mL inhalation solution 3 mL, Inhalation, QID, # 60 Each, 0 Refill(s), Pharmacy: [facility] # [id number] Start Date: 03/26/15 Status: Ordered ferrous sulfate 325 mg (65 mg elemental iron) oral tablet 1 tabs, Oral, BID, # 60 tabs, 11 Refill(s), Pharmacy: [facility], 1 tabs Oral BID Start Date: 05/07/14 Status: Ordered GlipiZIDE XL 2.5 mg oral tablet, extended release 2.5 mg, Oral, BID, # 180 tabs, 1 Refill(s), Pharmacy: [facility], 2.5 mg Oral BID Start Date: 03/10/15 Status: Ordered Lasix 20 mg oral tablet See Instructions, TAKE 1 TABLET EVERY DAY, # 90 tabs, eRx: [facility], TAKE 1 TABLET EVERY DAY Start Date: 04/16/15 Status: Ordered Lipitor 40 mg oral tablet 1/2 tabs, Oral, Bedtime (once a day), # 90 tabs, 2 Refill(s), Pharmacy: [facility], 1/2 tabs Oral Bedtime (once a day) Start Date: 11/29/14 Status: Ordered multivitamin Daily, 0 Refill(s) Start Date: 11/09/13 Status: Ordered Neurontin 300 mg oral capsule 300 mg 1 caps, Oral, BID, # 180 caps, 1 Refill(s), Pharmacy: [facility], 1 caps Oral BID Start Date: 03/10/15 Status: Ordered nitroglycerin 0.4 mg sublingual tablet 0.4 mg 1 tabs, SubLingual, q5min, as needed for chest pain, # 100 tabs, 1 Refill (s), Pharmacy: [facility], 1 tabs SubLingual q5min,PRN:as [...] BID, # 60 tabs, 11 Refill(s), Pharmacy: [facility], 1 tabs Oral BID Start Date: 05/07/14 Status: Ordered Refresh Dry Eye Therapy drops, Eye-Both, QID, 0 Refill(s) Start Date: 11/09/13 Status: Ordered TRUE test blood glucose strips TRUE test blood glucose strips, See Instructions, Check 3 x a day / 3 x a week. Send 1 bottle of 100 strips., # 1 bottles, 3 Refill(s), Pharmacy: [facility], Check 3 x a [...] 2003 6for herniated disc 7fibrocystic disease 1983 [id number] Social History Social History Type Response Smoking Status Never smoker Assessment and Plan Extracted from: Title: Office Visit Note Author: Compa Malik MD Date: 11/04/14 Assessment/Plan 1.Dyspnea 2.Chronic kidney disease 3.Diabetes 4.Coronary heart disease 5.Atrial fibrillation Discussion: This lady does appear to be stable. She has a tendency to intense symptomatology and then to apparent recovery of her malaise and perhaps overachievement. I reassured her that her heart function seems to be holding together all right. We discussed the atrial fibrillation. We discussed the chronic kidney disease. We advised a follow-up visit perhaps in one year and to call any time if she has difficulty.
--- OUTSIDE RECORDS SUMMARY | 2016-09-26 11:08 | XMS REPORT | Referral Summary ---
Author Author [facility] Organization [facility] Address Unknown Phone Unavailable Care Team Providers Care Causticiser Name Role Phone Agnes Colón Primary Care Physician [phone] Encounter [facility] Date(s): 03/05/16 - 03/05/16 [facility] [address] [place] [address] Discharge Diagnosis: Light headed Discharge Diagnosis: Chronic renal failure, stage 2 (mild) Discharge Disposition: 01-Home or Self Care Attending Physician: Chase Colón MD Admitting Physician: Chase Colón MD Vital Signs Most recent to 1 oldest [Reference Range]: Temperature Tympanic 36.6 degC [36.6-38.1 degC] (03/05/16 1:13 PM) Peripheral Pulse 71 bpm Rate [60-100 bpm] (03/05/16 1:13 PM) Respiratory Rate 18 br/min [14-20 br/min] (03/05/16 1:13 PM) Blood Pressure 134/70 mmHg [90-140/60-90 mmHg] (03/05/16 1:13 PM) SpO2 97 % (03/05/16 1:13 PM) Problem List Condition Effective Dates Status [...] QID, # 360 mL, 0 Refill(s), Pharmacy: [facility], 3 mL NEB QID Start Date: 03/21/15 Status: Ordered Aspir 81 mg, Oral, Daily, 0 Refill(s) Start Date: 11/09/13 Status: Ordered atorvastatin 40 mg oral tablet See Instructions, TAKE 1/2 TABLET EVERY DAY AT BEDTIME, # 45 tabs, 2 Refill(s), eRx: [facility], TAKE 1/2 TABLET EVERY DAY AT BEDTIME Start Date: 02/25/16 Status: Ordered calcitriol 0.25 mcg oral capsule 0.25 mcg 1 caps, Oral, Daily, # 30 caps, 0 Refill(s) Start Date: 01/05/16 Status: Ordered CeleXA 40 mg oral tablet See Instructions, TAKE 1 TABLET EVERY DAY, # 90 tabs, 2 Refill(s), eRx: [facility], TAKE 1 TABLET EVERY DAY Start Date: 06/13/15 Status: Ordered Coumadin 4 mg oral tablet See Instructions, TAKE 1 TABLET EVERY DAY, # 90 tabs, 1 Refill(s), eRx: [facility], TAKE 1 TABLET EVERY DAY Start Date: 07/23/15 Status: Ordered DuoNeb 0.5 mg-2.5 mg/3 mL inhalation solution 3 mL, Inhalation, QID, # 60 Each, 0 Refill(s), Pharmacy: [facility] # [id number] Start Date: 03/26/15 Status: Ordered ferrous sulfate 325 mg (65 mg elemental iron) oral tablet 1 tabs, Oral, BID, # 60 tabs, 11 Refill(s), [facility], 1 tabs Oral BID Start Date: 05/07/14 Status: Ordered gabapentin 300 mg oral capsule See Instructions, TAKE 1 CAPSULE TWICE DAILY, # 180 caps, 1 Refill(s), eRx: [facility], TAKE 1 CAPSULE TWICE DAILY Start Date: 12/05/15 Status: Ordered Gas-X 160 mg, Chewed, TID, as needed for gas, 0 Refill(s) Start Date: 11/10/15 Status: Ordered glipiZIDE 2.5 mg oral tablet, extended release See Instructions, TAKE 1 TABLET TWICE DAILY, # 180 tabs, 1 Refill(s), eRx: [facility], TAKE 1 TABLET TWICE DAILY Start Date: 12/01/15 Status: Ordered multivitamin Daily, 0 Refill(s) Start Date: 11/09/13 Status: Ordered nitroglycerin 0.4 mg sublingual tablet 0.4 mg 1 tabs, SubLingual, q5min, as needed for chest pain, # 100 tabs, 1 Refill (s), Pharmacy: [facility], 1 tabs SubLingual q5min,PRN:as needed for chest pain Start Date: 05/19/15 Status: Ordered pindolol 5 mg oral tablet 5 mg 1 tabs, Oral, Daily, # 90 tabs, 3 Refill(s), Pharmacy: [facility], 1 tabs Oral Daily Start Date: 01/06/16 Status: Ordered promethazine-codeine 6.25 mg-10 mg/5 mL oral syrup 5 mL, Oral, q4hr, as needed for cough, # 120 mL, 1 Refill(s) Start Date: 04/15/15 Status: Ordered Protonix 40 mg oral delayed release tablet 40 mg 1 tabs, Oral, BID, # 180 tabs, 3 Refill(s), Pharmacy: [facility], 1 tabs Oral BID Start Date: 11/10/15 Status: Ordered Refresh Dry Eye Therapy drops, Eye-Both, QID, 0 Refill(s) Start Date: 11/09/13 Status: Ordered TRUE test blood glucose strips TRUE test blood glucose strips, See Instructions, Check 3 x a day / 3 x a week. Send 1 bottle of 100 strips., # 1 bottles, 3 Refill(s), [facility], Check 3 x a day / 3 x a week. Send 1 bottle of 100 strips. Start Date: 01/22/15 Status: Ordered Vitamin D3 2000 intl units oral tablet Intl_Units tabs, Oral, Daily, 0 Refill(s) Start Date: 12/24/14 Status: Ordered Results Coagulation Most recent to 1 oldest [Reference Range]: PT Venous (03/05/16 2:30 PM) INR [0.8-1.2] 6.9 1 *HHI* (03/05/16 2:30 PM) 1Result Comment: Critical result verified by repeat analysis and reported to [facility] @3912 Normal (no anticoagulant): 0.8 - 1.2 Units Routine Therapeutic Range: 2.0 - 3.0 Units High Risk Therapeutic Range: 2.5 - 3.5 Units Immunizations Vaccine Date Refusal Reason influenza virus vaccine, inactivated 04/15/15 influenza virus vaccine, inactivated 02/11/14 influenza virus vaccine, live 03/16/12 pneumococcal 23-polyvalent vaccine 04/29/03 tetanus toxoid 05/27/95 Procedures Procedure Date Related Diagnosis Body Site Collection of venous blood by venipuncture 03/05/16 Laparoscopic repair of ventral hernia1 05/12/15 Colonoscopy2 03/28/14 Esophagogastroduodenoscopy and biopsy3 03/28/14 H/O esophagogastroduodenoscopy2009 S/P cardiac catheterization2002 S/P colonoscopy 1989 tailbone removed 1989 L ulnar transposition 1986 S/p breast biopsy, cyst 1982 D&C - Dilatation and curettage 1978 S/P carpal tunnel release 1978 L ear drum 1974 Back pain6, 7 CABG - Coronary artery bypass graft Cholecystectomy Lumpectomy8 Tonsillectomy9 Vaginal [id number] 1Robotic-assisted with incorporation of mesh 2Normal, no need to repeat unless symptoms warrant 3H. pylori negative. Marked gastritis. Duodenal diverticulum with adjacent ulcer. Placed on Carafate and PPI. Hold Coumadin. C PCP in 4 weeks 4Shatzkis ring, with dilation, gastric ulcers 5no stents, had blockage, collaterals developed; Dr. Malik 6back surgery 2003 7for herniated disc 8fibrocystic disease 1983 [id number] Social History Social History Type Response Smoking Status Never smoker Assessment and Plan No data available for this section
--- OUTSIDE RECORDS SUMMARY | 2016-09-26 11:08 | XMS REPORT | Referral Summary ---
Author Author [facility] Organization [facility] Address Unknown Phone Unavailable Care Team Providers Care Exhibit Electrician Name Role Phone Agnes Colón Primary Care Physician [phone] Encounter Date(s): 05/18/16 - 05/18/16 [facility] [address] [place] [address] Discharge Diagnosis: Ragged cuticle Discharge Disposition: 01-Home or Self Care Attending Physician: Chase Colón MD Admitting Physician: Chase Colón MD Vital Signs Most recent to 1 oldest [Reference Range]: Blood Pressure 134/66 mmHg [90-140/60-90 mmHg] (05/18/16 2:37 PM) Problem List Condition Effective Dates Status [...] QID, # 360 mL, 0 Refill(s), Pharmacy: [facility], 3 mL NEB QID Start Date: 03/21/15 Status: Ordered Aspir 81 mg, Oral, Daily, 0 Refill(s) Start Date: 11/09/13 Status: Ordered atorvastatin 40 mg oral tablet See Instructions, TAKE 1/2 TABLET EVERY DAY AT BEDTIME, # 45 tabs, 2 Refill(s), eRx: [facility], TAKE 1/2 TABLET EVERY DAY AT BEDTIME Start Date: 02/25/16 Status: Ordered calcitriol 0.25 mcg oral capsule 0.25 mcg 1 caps, Oral, BID, # 30 caps, 0 Refill(s) Start Date: 01/05/16 Status: Ordered CeleXA 40 mg oral tablet See Instructions, TAKE 1 TABLET EVERY DAY, # 90 tabs, 2 Refill(s), eRx: [facility], TAKE 1 TABLET EVERY DAY Start Date: 06/13/15 Status: Ordered DuoNeb 0.5 mg-2.5 mg/3 mL inhalation solution 3 mL, Inhalation, QID, # 60 Each, 0 Refill(s), Pharmacy: [facility] # [id number] Start Date: 03/26/15 Status: Ordered ferrous sulfate 325 mg (65 mg elemental iron) oral tablet 1 tabs, Oral, BID, # 60 tabs, 11 Refill(s), [facility], 1 tabs Oral BID Start Date: 05/07/14 Status: Ordered gabapentin 300 mg oral capsule See Instructions, TAKE 1 CAPSULE TWICE DAILY, # 180 caps, 1 Refill(s), eRx: [facility], TAKE 1 CAPSULE TWICE DAILY Start Date: 04/20/16 Status: Ordered Gas-X 160 mg, Chewed, TID, as needed for gas, 0 Refill(s) Start Date: 11/10/15 Status: Ordered glipiZIDE 2.5 mg oral tablet, extended release See Instructions, TAKE 1 TABLET TWICE DAILY, # 180 tabs, 1 Refill(s), eRx: [facility], TAKE 1 TABLET TWICE DAILY Start Date: 04/21/16 Status: Ordered multivitamin Daily, 0 Refill(s) Start Date: 11/09/13 Status: Ordered nitroglycerin 0.4 mg sublingual tablet 0.4 mg 1 tabs, SubLingual, q5min, as needed for chest pain, # 100 tabs, 1 Refill (s), Pharmacy: [facility], 1 tabs SubLingual q5min,PRN:as needed for chest pain Start Date: 05/19/15 Status: Ordered pindolol 5 mg oral tablet 5 mg 1 tabs, Oral, Daily, # 90 tabs, 3 Refill(s), Pharmacy: [facility], 1 tabs Oral Daily Start Date: 01/06/16 Status: Ordered promethazine-codeine 6.25 mg-10 mg/5 mL oral syrup 5 mL, Oral, q4hr, as needed for cough, # 120 mL, 1 Refill(s) Start Date: 04/15/15 Status: Ordered Protime/INR Protime/INR, See Instructions, DX: DVT I82.409 Do lab testing monthly, unless otherwise indicated per INR results. Fax results to [phone], # 1 Each, 5 Refill(s) Start Date: 05/03/16 Status: Ordered Protonix 40 mg oral delayed release tablet 40 mg 1 tabs, Oral, BID, # 180 tabs, 3 Refill(s), Pharmacy: [facility] Delivery, 1 tabs Oral BID Start Date: 11/10/15 Status: Ordered Refresh Dry Eye Therapy drops, Eye-Both, QID, 0 Refill(s) Start Date: 11/09/13 Status: Ordered TRUE test blood glucose strips TRUE test blood glucose strips, See Instructions, Check 3 x a day / 3 x a week. Send 1 bottle of 100 strips., # 1 bottles, 3 Refill(s), Pharmacy: [facility], Check 3 x a day / 3 x a week. Send 1 bottle of 100 strips. Start Date: 03/08/16 Status: Ordered Vitamin D3 2000 intl units oral tablet Intl_Units tabs, Oral, Daily, 0 Refill(s) Start Date: 12/24/14 Status: Ordered warfarin 4 mg oral tablet See Instructions, TAKE 1 TABLET EVERY DAY, # 90 tabs, 1 Refill(s), eRx: [facility], TAKE 1 TABLET EVERY DAY Start Date: 04/01/16 Status: Ordered Results No data available for this section Immunizations Given and Recorded Vaccine Date Status Refusal Reason influenza virus vaccine, inactivated 04/15/15 Given influenza virus vaccine, inactivated 02/11/14 Recorded influenza virus vaccine, live 03/16/12 Given pneumococcal 23-polyvalent vaccine 04/29/03 Recorded tetanus toxoid 05/27/95 Given Procedures Procedure Date Related Diagnosis Body Site [...] artery bypass graft Cholecystectomy Lumpectomy8 Tonsillectomy9 Vaginal [id number] 1Robotic-assisted with incorporation of mesh 2Normal, no need to repeat unless symptoms warrant 3H. pylori negative. Marked gastritis. Duodenal diverticulum with adjacent ulcer. Placed on Carafate and PPI. Hold Coumadin. C PCP in 4 weeks 4Shatzkis ring, with dilation, gastric ulcers 5no stents, had blockage, collaterals developed; Dr. Malik 6back surgery 2004 7for herniated disc 8fibrocystic disease 1983 [id number] Social History Social History Type Response Smoking Status Never smoker Assessment and Plan Extracted from: Title: Ambulatory Patient Education Author: Chase Colón MD Date: Allergy Rash A rash is a change in the color or texture of the skin. There are many different types of rashes. You may have other problems that accompany your rash. CAUSES Infections. Allergic reactions. This can include allergies to pets or foods. Certain medicines. Exposure to certain chemicals, soaps, or cosmetics. Heat. Exposure to poisonous plants. Tumors, both cancerous and noncancerous. SYMPTOMS Redness. Scaly skin. Itchy skin. Dry or cracked skin. Bumps. Blisters. Pain. DIAGNOSIS Your caregiver may do a physical exam to determine what type of rash you have. A skin sample (biopsy) may be taken and examined under a microscope. TREATMENT Treatment depends on the type of rash you have. Your caregiver may prescribe certain medicines. For serious conditions, you may need to see a skin doctor ( baggage handling supervisor). HOME CARE INSTRUCTIONS Avoid the substance that caused your rash. Do not scratch your rash. This can cause infection. You may take cool baths to help stop itching. Only take pqjx-vfu-nkojswa or prescription medicines as directed by your caregiver. Keep all follow-up appointments as directed by your caregiver. SEEK IMMEDIATE MEDICAL CARE IF: You have increasing pain, swelling, or redness. You have a fever. You have new or severe symptoms. You have body aches, diarrhea, or vomiting. Your rash is not better after 3 days. MAKE SURE YOU: Understand these instructions. Will watch your condition. Will get help right away if you are not doing well or get worse. This information is not intended to replace advice given to you by your health care provider. Make sure you discuss any questions you have with your health care provider. Document Released: 04/29/2003 Document Revised: 05/30/2015 Document Reviewed: [employer] Interactive Patient Education 2016 [employer] No follow up information was provided. Extracted from: Title: Office Visit Note Author: Chase Colón MD Date: 05/18/16 Assessment/Plan 1.Ragged cuticle Will have patient soak and use Neosporin cream on the sites. Ordered: Office Visit Level 2 Est 37010
--- OUTSIDE RECORDS SUMMARY | 2016-09-26 11:08 | XMS REPORT | Referral Summary ---
Author Author [facility] Organization [facility] Address Unknown Phone Unavailable Care Team Providers Care Reel Operator Name Role Phone Agnes Colón Primary Care Physician [phone] Encounter Date(s): 10/03/14 - 10/03/14 [facility] [address] [place] [id number] Discharge Diagnosis: Dyspnea Discharge Diagnosis: Coronary heart disease Discharge Diagnosis: Chronic anticoagulation Discharge Diagnosis: Ecchymosis Discharge Diagnosis: Dry mouth Discharge Diagnosis: Atrial fibrillation Discharge Disposition: 01-Home or Self Care Attending Physician: Compa Malik [...] QID, # 360 mL, 0 Refill(s), Pharmacy: [facility], 3 mL NEB QID Start Date: 03/21/15 Status: Ordered Aspir 81 mg, Oral, Daily, 0 Refill(s) Start Date: 11/09/13 Status: Ordered CeleXA 40 mg oral tablet See Instructions, TAKE 1 TABLET EVERY DAY, # 90 tabs, 2 Refill(s), eRx: [facility], TAKE 1 TABLET EVERY DAY Start Date: 11/28/14 Status: Ordered Coumadin 4 mg oral tablet 4 mg 1 tabs, Oral, Daily, # 90 tabs, 1 Refill(s), Pharmacy: [facility], 1 tabs Oral Daily Start Date: 03/10/15 Status: Ordered DuoNeb 0.5 mg-2.5 mg/3 mL inhalation solution 3 mL, Inhalation, QID, # 60 Each, 0 Refill(s), Pharmacy: [facility] # [id number] Start Date: 03/26/15 Status: Ordered ferrous sulfate 325 mg (65 mg elemental iron) oral tablet 1 tabs, Oral, BID, # 60 tabs, 11 Refill(s), [facility], 1 tabs Oral BID Start Date: 05/07/14 Status: Ordered GlipiZIDE XL 2.5 mg oral tablet, extended release 2.5 mg, Oral, BID, # 180 tabs, 1 Refill(s), Pharmacy: [facility], 2.5 mg Oral BID Start Date: 03/10/15 Status: Ordered Lasix 20 mg oral tablet See Instructions, TAKE 1 TABLET EVERY DAY, # 90 tabs, 1 Refill(s), eRx: [facility], TAKE 1 TABLET EVERY DAY Start Date: 09/09/14 Status: Ordered Lipitor 40 mg oral tablet 1/2 tabs, Oral, Bedtime (once a day), # 90 tabs, 2 Refill(s), Pharmacy: [facility], 1/2 tabs Oral Bedtime (once a day) Start Date: 11/29/14 Status: Ordered multivitamin Daily, 0 Refill(s) Start Date: 11/09/13 Status: Ordered Neurontin 300 mg oral capsule 300 mg 1 caps, Oral, BID, # 180 caps, 1 Refill(s), Pharmacy: [facility], 1 caps Oral BID Start Date: 03/10/15 Status: Ordered nitroglycerin 0.4 mg sublingual tablet 0.4 mg 1 tabs, SubLingual, q5min, as needed for chest pain, # 100 tabs, 1 Refill (s), Pharmacy: [facility] Delivery, 1 tabs SubLingual q5min,PRN:as [...] # 90 mL, 0 Refill(s) Start Date: 03/28/15 Status: Ordered Protonix 40 mg oral delayed release tablet 1 tabs, Oral, BID, # 60 tabs, 11 Refill(s), Pharmacy: [facility], 1 tabs Oral BID Start Date: 05/07/14 Status: Ordered Refresh Dry Eye Therapy drops, Eye-Both, QID, 0 Refill(s) Start Date: 11/09/13 Status: Ordered TRUE test blood glucose strips TRUE test blood glucose strips, See Instructions, Check 3 x a day / 3 x a week. Send 1 bottle of 100 strips., # 1 bottles, 3 Refill(s), Pharmacy: [facility], Check 3 [...] 2003 6for herniated disc 7fibrocystic disease 1983 [id number] Social History Social History Type Response Smoking Status Never smoker Assessment and Plan Extracted from: Title: Office Visit Note Author: Compa Malik MD Date: 10/03/14 Assessment/Plan 1.Dyspnea Ordered: Echo, 2-D + Doppler + Color Flow EKG with Interpretation [id number] Return to Clinic 2.Dry mouth Ordered: Echo, 2-D + Doppler + Color Flow EKG with Interpretation [id number] Return to Clinic 3.Ecchymosis Ordered: Echo, 2-D + Doppler + Color Flow EKG with Interpretation [id number] Return to Clinic 4.Atrial fibrillation Ordered: Echo, 2-D + Doppler + Color Flow EKG with Interpretation [id number] Return to Clinic 5.Chronic anticoagulation Ordered: Echo, 2-D + Doppler + Color Flow EKG with Interpretation [id number] Return to Clinic 6.Coronary heart disease Discussion [...] Doppler + Color Flow EKG with Interpretation [id number] Return to Clinic Referrals to Other Providers Referred by: Compa Malik MD
--- OUTSIDE RECORDS SUMMARY | 2016-09-26 11:08 | XMS REPORT | Referral Summary ---
Author Author [facility], Family Medicine Organization [facility] Address Unknown Phone Unavailable Care Team Providers Care Fish Straightener Name Role Phone Eldon Agnes Primary Care Physician [phone] Encounter Date(s): 05/07/15 - 05/07/15 [facility] [address] [place] [address] Discharge Diagnosis: Callus of foot Discharge Diagnosis: Localized superficial mass Discharge Diagnosis: History of DVT (deep vein thrombosis) Discharge Disposition: 01-Home or Self Care Attending Physician: Soila Pepe PA-C Admitting Physician: Soila Pepe PA-C Vital Signs Most recent to 1 oldest [Reference Range]: Blood Pressure 128/74 mmHg [90-140/60-90 mmHg] (05/07/15 11:04 AM) Problem List Condition Effective Dates Status [...] 360 mL, 0 Refill(s), Pharmacy: [facility], 3 mL NEB QID Start Date: 03/21/15 Status: Ordered Aspir 81 mg, Oral, Daily, 0 Refill(s) Start Date: 11/09/13 Status: Ordered CeleXA 40 mg oral tablet See Instructions, TAKE 1 TABLET EVERY DAY, # 90 tabs, 2 Refill(s), eRx: [facility], TAKE 1 TABLET EVERY DAY Start Date: 11/28/14 Status: Ordered Coumadin 4 mg oral tablet 4 mg 1 tabs, Oral, Daily, # 90 tabs, 1 Refill(s), Pharmacy: [facility], 1 tabs Oral Daily Start Date: 03/10/15 Status: Ordered DuoNeb 0.5 mg-2.5 mg/3 mL inhalation solution 3 mL, Inhalation, QID, # 60 Each, 0 Refill(s), Pharmacy: [facility] # [id number] Start Date: 03/26/15 Status: Ordered ferrous sulfate 325 mg (65 mg elemental iron) oral tablet 1 tabs, Oral, BID, # 60 tabs, 11 Refill(s), [facility], 1 tabs Oral BID Start Date: 05/07/14 Status: Ordered GlipiZIDE XL 2.5 mg oral tablet, extended release 2.5 mg, Oral, BID, # 180 tabs, 1 Refill(s), Pharmacy: [facility], 2.5 mg Oral BID Start Date: 03/10/15 Status: Ordered Lasix 20 mg oral tablet See Instructions, TAKE 1 TABLET EVERY DAY, # 90 tabs, eRx: [facility], TAKE 1 TABLET EVERY DAY Start Date: 04/16/15 Status: Ordered Lipitor 40 mg oral tablet 1/2 tabs, Oral, Bedtime (once a day), # 90 tabs, 2 Refill(s), Pharmacy: [facility], 1/2 tabs Oral Bedtime (once a day) Start Date: 11/29/14 Status: Ordered multivitamin Daily, 0 Refill(s) Start Date: 11/09/13 Status: Ordered Neurontin 300 mg oral capsule 300 mg 1 caps, Oral, BID, # 180 caps, 1 Refill(s), Pharmacy: [facility], 1 caps Oral BID Start Date: 03/10/15 Status: Ordered nitroglycerin 0.4 mg sublingual tablet 0.4 mg 1 tabs, SubLingual, q5min, as needed for chest pain, # 100 tabs, 1 Refill (s), Pharmacy: [facility], 1 tabs SubLingual q5min,PRN:as needed for chest pain Start Date: 03/10/15 Status: Ordered pindolol 5 mg oral tablet See Instructions, TAKE 1 TABLET EVERY DAY, # 90 tabs, 1 Refill(s), eRx: [facility], TAKE 1 TABLET EVERY DAY Start Date: 09/30/14 Status: Ordered Please draw lab work Please draw lab work, See Instructions, PT/INR monthly and fax results to [phone] DX: DVT 453.40, # 6 Each, 0 [...] 1 bottles, 3 Refill(s), Pharmacy: [facility], Check 3 x [...] blockage, collaterals developed; Dr. Malik 5back surgery 2004 6for herniated disc 7fibrocystic disease 1983 [id number] Social History Social History Type Response Smoking Status Never smoker Assessment and Plan Extracted from: Title: Ambulatory Patient Education Author: Soila Pepe PA-C Date : 05/07/15 Family Medicine Corns and Calluses Corns are small areas of thickened skin that usually occur on the top, sides, or tip of a toe. They contain a cone-shaped core with a point that can press on a nerve below. This causes pain. Calluses are areas of thickened skin that usually develop on hands, fingers, palms, soles of the feet, and heels. These are areas that experience frequent friction or pressure. CAUSES Corns are usually the result of rubbing (friction) or pressure from shoes that are too tight or do not fit properly. Calluses are caused by repeated friction and pressure on the affected areas. SYMPTOMS A hard growth on the skin. Pain or tenderness under the skin. Sometimes, redness and swelling. Increased discomfort while wearing tight-fitting shoes. DIAGNOSIS Your caregiver can usually tell what the problem is by doing a physical exam. TREATMENT Removing the cause of the friction or pressure is usually the only treatment needed. However, sometimes medicines can be used to help soften the hardened, thickened areas. These medicines include salicylic acid plasters and 12% ammonium lactate lotion. These medicines should only be used under the direction of your caregiver. HOME CARE INSTRUCTIONS Try to remove pressure from the affected area. You may wear donut-shaped corn pads to protect your skin. You may use a pumice stone or nonmetallic nail file to gently reduce the thickness of a corn. Wear properly fitted footwear. If you have calluses on the hands, wear gloves during activities that cause friction. If you have diabetes, you should regularly examine your feet. Tell your caregiver if you notice any problems with your feet. SEEK IMMEDIATE MEDICAL CARE IF: You have increased pain, swelling, redness, or warmth in the affected area. Your corn or callus starts to drain fluid or bleeds. You are not getting better, even with treatment. Document Released: 02/12/2005 Document Revised: 07/31/2012 Document Reviewed: [facility] Patient Information 2015 [employer] [facility]. This information is not intended to replace advice given to you by your health care provider. Make sure you discuss any questions you have with your health care provider. Preventive Medicine Venous Thromboembolism, Prevention A venous thromboembolism is a blood clot that forms in a vein. A blood clot in a deep vein is called a deep venous thrombosis (DVT). A blood clot in the lungs is called a pulmonary embolism (PE). Blood clots are dangerous and can cause . Blood clots can form in the: Lungs. Legs. Arms. CAUSES A blood clot can form in a vein from different conditions. A blood clot can develop due to: Blood flow within a vein that is sluggish or very slow. Medical conditions that make the blood clot easily. Vein damage. RISK FACTORS Risk factors can increase your risk of developing a blood clot. Risk factors can include: Smoking. Obesity. Age. Immobility or sedentary lifestyle. Sitting or standing for long periods of time. Chronic or long-term bedrest. Medical or past history of blood clots. Family history of blood clots. Hip, leg, or pelvis injury or trauma. Major surgery, especially surgery on the hip, knee, or abdomen. and childbirth. control pills and hormone replacement therapy. Medical conditions such as Peripheral vascular disease (PVD). Diabetes. Cancer. SYMPTOMS Symptoms of VTE can depend on where the clot is located and if the clot breaks off and travels to another organ. Sometimes, there may be no symptoms. DVT symptoms can include: Swelling of the leg or arm, especially on one side. Warmth and redness of the leg or arm, especially on one side. Pain in an arm or leg. Leg pain may be more noticeable or worse when standing or walking. PE symptoms can include: Shortness of breath. Coughing. Coughing up blood or blood-tinged mucus (hemoptysis). Chest pain or chest pain with deep breaths (pleuritic chest pain). Apprehension, anxiety, or a feeling of impending doom. Rapid heartbeat. PREVENTION Exercise regularly. Take a brisk 30 minute walk every day. Staying active and moving around can help prevent blood clots. Avoid sitting or lying in bed for long periods of time. Change your position often, especially during a long trip. Women, especially those over the age of 35, should consider the risks and benefits of taking estrogen medicines. This includes control pills and hormone replacement therapy. Do not smoke, especially if you take estrogen medicines. If you smoke, talk to your caregiver on how to quit. Eat plenty of fruits and vegetables. Ask your caregiver or dietitian if there are foods you should avoid. Maintain a weight as suggested by your caregiver. Wear loose-fitting clothing. Avoid constrictive or tight clothing around your legs or waist. Try not to bump or injure your legs. Avoid crossing your legs when you are sitting. Do not use pillows under your knees unless told by your caregiver. Take all medicines that your caregiver prescribes you. Wear special stockings (compression stockings or LAUREN hose) if your caregiver prescribes them. Wearing compression stockings (support hose) can make the leg veins more narrow. This increases blood flow in the legs and can help prevent blood clots. It is important to wear compression stockings correctly. Do not let them bunch up when you are wearing them. TRAVEL Long distance travel can increase the risk of a blood clot. To prevent a blood clot when traveling: You should exercise your legs by walking or by pumping your muscles every hour. To help prevent poor circulation on long trips, stand, stretch, and walk up and down the aisle of your airplane, train, or bus as often as possible to get the blood moving. Do squats if you are able. If you are unable to do squats, raise your foot on the balls of your feet and tighten your lower leg muscles (particularly the calve muscles) while seated. Pointing (flexing and extending) your toes while tightening your calves while seated are also good exercises to do every hour during long trips. They help increase blood flow and reduce risk of DVT. Stay well hydrated. Drink water regularly when traveling, especially when you are sitting or immobile for long periods of time. Use of drugs to prevent DVT during routine travel is not generally recommended. Before taking any drugs to reduce risk of DVT, consult your caregiver. SURGERY AND HOSPITALIZATION People who are at high risk for a blood clot may be given a blood thinning medicine (anticoagulant) when they are hospitalized even if they are not going to have surgery. A long trip prior to surgery can increase the risk of a clot for patients undergoing hip and knee replacements. Talk to your caregiver about travel plans before your surgery. After hip or knee surgery, your caregiver may give you anticoagulants to help prevent blood clots. Anticoagulants may be given to people at high risk of developing thromboembolism, before, during, or sometimes after surgery, including people with clotting disorders or with a history of past thromboembolism. TRAVEL AFTER SURGERY In orthopedic surgery, the cutting of bones prompts the body to increase clotting factors in the blood. Due to the size of the bones involved in hip and knee replacements, there is a higher risk of blood clotting than other orthopedic surgeries. There is a risk of clotting for up to 46 weeks after surgery. Flying or traveling long distances can increase your risk of a clot. As a result, those who travel long distances may need additional preventive measures after their procedure. Drink only non-alcoholic beverages during your flight, train, or car travel. Alcohol can dehydrate you and increase your risk of getting blood clots. SEEK IMMEDIATE MEDICAL CARE IF: You develop chest pain. You develop severe shortness of breath. You have breathing problems after traveling. You develop swelling or pain in the leg. You begin to cough up bloody mucus or phlegm (sputum). You feel dizzy or faint. Document Released: 04/27/2010 Document Revised: 01/31/2013 Document Reviewed: [employer] Patient Information 2015 [employer] [facility]. This information is not intended to replace advice given to you by your health care provider. Make sure you discuss any questions you have with your health care provider. No follow up information was provided. Extracted from: Title: Office Visit Note Author: Soila Pepe PA-C Date: 05/07/15 Assessment/Plan Callus of foot Advised that she can use some Vaseline to the area and cover with bandage, then gently file down. Ordered: Office Visit Level 3 Est 60322 History of DVT (deep vein thrombosis) Her INR wasjust checkedyesterday and was 2.9, and has held Coumadin for 2 days now.Does not appear to have DVT at this time, but will check Venous doppler. Ordered: Office Visit Level 3 Est 90995 Localized superficial mass This feels like a superficial hematoma. Perhaps she hit her leg and just didn't remember. Will check US of this area as well. I don't thinkthat thisshould delay her surgery, but will wait for US results. Ordered: Office Visit Level 3 Est 09299
--- OUTSIDE RECORDS SUMMARY | 2016-09-26 11:08 | XMS REPORT | Referral Summary ---
Author Author [facility] Medicine Organization [facility] Address Unknown Phone Unavailable Care Team Providers Care Lightning Protection Installer Name Role Phone Agnes Colón Primary Care Physician [phone] Encounter VC Date(s): 11/11/14 - 11/11/14 [facility] [address] [place] [address]- Discharge Diagnosis: Toe pain Discharge Diagnosis: Thumb pain Discharge Disposition: 01-Home or Self Care Attending Physician: Chase Colón MD Admitting Physician: Chase Colón MD Vital Signs Most recent to 1 oldest [Reference Range]: Blood Pressure 122/74 mmHg [90-140/60-90 mmHg] (11/11/14 1:22 PM) Problem List Condition Effective Dates Status [...] QID, # 360 mL, 0 Refill(s), Pharmacy: [facility], 3 mL NEB QID Start Date: 03/21/15 Status: Ordered Aspir 81 mg, Oral, Daily, 0 Refill(s) Start Date: 11/09/13 Status: Ordered CeleXA 40 mg oral tablet See Instructions, TAKE 1 TABLET EVERY DAY, # 90 tabs, 2 Refill(s), eRx: [facility], TAKE 1 TABLET EVERY DAY Start Date: 11/28/14 Status: Ordered Coumadin 4 mg oral tablet 4 mg 1 tabs, Oral, Daily, # 90 tabs, 1 Refill(s), Pharmacy: [facility], 1 tabs Oral Daily Start Date: 03/10/15 Status: Ordered Discontinue oxygen therapy Discontinue oxygen therapy, See Instructions, Pt no longer require oxygen therapy. Please discontinue orders and pickle sorter equipment. Fax to [facility] [phone], # 1 Each, 0 Refill(s) Start Date: 05/19/15 Status: Ordered DuoNeb 0.5 mg-2.5 mg/3 mL inhalation solution 3 mL, Inhalation, QID, # 60 Each, 0 Refill(s), Pharmacy: [facility] # [id number] Start Date: 03/26/15 Status: Ordered ferrous sulfate 325 mg (65 mg elemental iron) oral tablet 1 tabs, Oral, BID, # 60 tabs, 11 Refill(s), [facility] tabs Oral BID Start Date: 05/07/14 Status: Ordered GlipiZIDE XL 2.5 mg oral tablet, extended release 2.5 mg, Oral, BID, # 180 tabs, 1 Refill(s), Pharmacy: [facility], 2.5 mg Oral BID Start Date: 03/10/15 Status: Ordered Lasix 20 mg oral tablet See Instructions, TAKE 1 TABLET EVERY DAY, # 90 tabs, eRx: [facility], TAKE 1 TABLET EVERY DAY Start Date: 04/16/15 Status: Ordered Lipitor 40 mg oral tablet 1/2 tabs, Oral, Bedtime (once a day), # 90 tabs, 2 Refill(s), Pharmacy: [facility], 1/2 tabs Oral Bedtime (once a day) Start Date: 11/29/14 Status: Ordered multivitamin Daily, 0 Refill(s) Start Date: 11/09/13 Status: Ordered Neurontin 300 mg oral capsule 300 mg 1 caps, Oral, BID, # 180 caps, 1 Refill(s), Pharmacy: [facility], 1 caps Oral BID Start Date: 03/10/15 Status: Ordered nitroglycerin 0.4 mg sublingual tablet 0.4 mg 1 tabs, SubLingual, q5min, as needed for chest pain, # 100 tabs, 1 Refill (s), Pharmacy: [facility], 1 tabs SubLingual [...] Instructions, PT/INR monthly and fax results to [phone] DX: DVT 453.40, # 6 Each, 0 Refill(s) Start Date: 05/31/14 Status: Ordered promethazine-codeine 6.25 mg-10 mg/5 mL oral syrup 5 mL, Oral, q4hr, as needed for cough, # 120 mL, 1 Refill(s) Start Date: 04/15/15 Status: Ordered Protonix 40 mg oral delayed release tablet 40 mg 1 tabs, Oral, BID, # 180 tabs, 1 Refill(s), Pharmacy: [facility], 1 tabs Oral [...] strips., # 1 bottles, 3 Refill(s), Pharmacy: [facility], Check 3 x [...] 2003 6for herniated disc 7fibrocystic disease 1983 [id number] Social History Social History Type Response Smoking Status Never smoker Assessment and Plan Extracted from: Title: Ambulatory Patient Education Author: Chase Colón MD Date: Family Medicine Pain of Unknown Etiology (Pain Without a Known Cause) You have come to your caregiver because of pain. Pain can occur in any part of the body. Often there is not a definite cause. If your laboratory (blood or urine) work was normal and X-rays or other studies were normal, your caregiver may treat you without knowing the cause of the pain. An example of this is the headache. Most headaches are diagnosed by taking a history. This means your caregiver asks you questions about your headaches. Your caregiver determines a treatment based on your answers. Usually testing done for headaches is normal. Often testing is not done unless there is no response to medications. Regardless of where your pain is located today, you can be given medications to make you comfortable. If no physical cause of pain can be found, most cases of pain will gradually leave as suddenly as they came. If you have a painful condition and no reason can be found for the pain, it is important that you follow up with your caregiver. If the pain becomes worse or does not go away, it may be necessary to repeat tests and look further for a possible cause. Only take [id number] or prescription medicines for pain, discomfort, or fever as directed by your caregiver. For the protection of your privacy, test results cannot be given over the phone. Make sure you receive the results of your test. Ask how these results are to be obtained if you have not been informed. It is your responsibility to obtain your test results. You may continue all activities unless the activities cause more pain. When the pain lessens, it is important to gradually resume normal activities. Resume activities by beginning slowly and gradually increasing the intensity and duration of the activities or exercise. During periods of severe pain, bed rest may be helpful. Lie or sit in any position that is comfortable. Ice used for acute (sudden) conditions may be effective. Use a large plastic bag filled with ice and wrapped in a towel. This may provide pain relief. See your caregiver for continued problems. Your caregiver can help or refer you for exercises or physical therapy if necessary. If you were given medications for your condition, do not drive, operate machinery or power tools, or sign legal documents for 24 hours. Do not drink alcohol, take sleeping pills, or take other medications that may interfere with treatment. See your caregiver immediately if you have pain that is becoming worse and not relieved by medications. Document Released: 02/01/2002 Document Revised: 02/27/2014 Document Reviewed: [employer] Patient Information 2014 [facility], [facility]. No follow up information was provided. Extracted from: Title: Office Visit Note Author: Chase Colón MD Date: 11/11/14 Assessment/Plan Thumb pain Ordered: Office Visit Level 3 Est 69108 Toe pain Good supportive shoes. Also wear the shoes. Ordered: Office Visit Level 3 Est 01401
--- OUTSIDE RECORDS SUMMARY | 2016-09-26 11:08 | XMS REPORT | Continuity of Care Document ---
Author Author [facility] Organization [facility] Address Unknown Phone Unavailable Care Team Providers Care Sky Diver Name Role Phone DMITRIY TAYLOR MD Primary Care Physician [phone] Insurance Providers Payer Name Policy Number Subscriber Name Relationship Medicarecaitlyn Suárez Pffs [id number] Tiffanie Grady 16 Self Advance Directives Directive Response Recorded Date/Time Dr Gerard Resuscitation Status Full Code, unverified 03/27/14 3:15pm Resuscitation Documents on File No 03/26/14 1:42pm Problems Medical Problems Problem Onset Date Status Laceration of finger Unknown Active chronic anticoagulation Unknown Active Medications Medication Dose Route Sig Days/Qty Instructions Order Date Discontinued Date Status Lansoprazole 30 Mg PO DAILY 12/16/10 05/10/13 Discontinued Gabapentin 300 Mg PO DAILY 12/16/10 Active Simvastatin 20 Mg PO BEDTIME 12/16/10 05/10/13 Discontinued Citalopram Hydrobromide 40 Mg PO DAILY 12/16/10 10/01/11 Discontinued Metoprolol Tartrate 25 Mg PO TWICE A DAY 12/16/10 10/01/11 Discontinued Isosorbide Mononitrate 30 Mg PO TWICE A DAY 12/16/10 10/01/11 Discontinued Nitroglycerin 0.4 Mg SL NEEDED 12/16/10 Active Acetaminophen/Dp-Hydram Hcl 2 Tab PO NEEDED 12/16/10 Active Pindolol 1 Tab PO DAILY 12/19/12 Active Warfarin Sodium 1 Tab PO DAILY 2MG TU,ZENAIDA,SAT,SUN; 4MG M,W,F 12/19/12 Active Glipizide 1 Tab PO DAILY 12/19/12 Active [Lovenox] DAILY 12/19/12 05/10/13 Discontinued Aspirin 81 Mg PO DAILY 05/10/13 Active Atorvastatin Calcium 40 Mg PO DAILY 05/10/13 Active Citalopram Hydrobromide 40 Mg PO BEDTIME 05/10/13 Active Digoxin 125 Mcg PO DAILY 05/10/13 Active Cyclobenzaprine Hcl 10 Mg PO NEEDED 05/10/13 03/26/14 Discontinued Social History Social History Problem Response Recorded Date/Time Smoking Status Never smoker 03/28/2014 7:05am Chewing Tobacco Status No 05/10/2013 12:12pm Hx Substance Use No 03/26/2014 1:43pm Hx Alcohol Use No 03/26/2014 1:43pm Has the pt used tobacco in the last 12 months No 03/26/2014 1:43pm Query Response Start Date Stop Date Smoking Status Never smoker Hospital Discharge Instructions No hospital discharge instructions. Plan of Care No plan of care. Functional Status No functional status results. Allergies, Adverse Reactions, Alerts Allergen Type Severity Reaction Status Last Updated D&c red no. 7 Allergy Mild ITCH Active 05/10/13 Immunizations Name Given Type Hx Influenza Vaccination Y FALL 2013 Historical Hx Pneumococcal Vaccination Y JULY 2011 Historical Hx Tetanus, Diptheria, Pertussis Y 05/10/13 Historical Hx Influenza Vaccination Y FALL 2013 Historical Hx Tetanus, Diptheria, Pertussis Y 05/10/13 Historical Vital Signs Acute Vital Signs Vital Response Date/Time Temperature (Fahrenheit) 98.3 deg F (96.8 - 99.1) Temperature (Calculated Celsius) 36.75063 degrees C (36.0 - 37.3) Temperature Source Temporal Pulse Rate (adult) 70 bpm (60 - 100) Respiratory Rate 16 breaths/min (10 - 20) O2 Sat by Pulse Oximetry 95 % (90 - 100) Oxygen Delivery Method Room Air Blood Pressure 120/57 mm Hg Blood Pressure Source Automatic Cuff Height 5 ft 4 in Weight 176 lb Body Mass Index 30.0 kg/m^2 Results Test Source Date Result Interp. Ref. Range Comments Alanine Aminotransferase (ALT/SGPT) January 03, 2013 6:25am 29 U/L N 9- 52 Albumin January 03, 2013 6:25am 4.7 G/DL N 3.5-5.0 Albumin/Globulin Ratio January 03, 2013 6:25am 1.4 RATIO N 1.1-2.2 Alkaline Phosphatase January 03, 2013 6:25am 98 U/L N 38-126 Anion Gap January 03, 2013 6:25am 18 MEQ/L H 5-15 Aspartate Amino Transf (AST/SGOT) January 03, 2013 6:25am 25 U/L N 14-36 BUN/Creatinine Ratio January 03, 2013 6:25am 16 RATIO N 6-26 Band Neutrophils # December 18, 2010 5:25am 0.8 T/MM3 - Band Neutrophils % December 18, 2010 5:25am 5.0 % N 0-6 Basophils # (Auto) January 03, 2013 6:25am 0.1 T/MM3 N 0-0.2 COMMENT [facility] WILL CALL Basophils (%) (Auto) January 03, 2013 6:25am 0.5 % N 0-2 COMMENT [facility] WILL CALL Blood Urea Nitrogen January 03, 2013 6:25am 30.0 MG/DL H 7-17 Calcium Level January 03, 2013 6:25am 9.4 MG/DL N 8.4-10.2 Calculated Osmolality January 03, 2013 6:25am 281 MOSM/KG H 261-280 Carbon Dioxide Level January 03, 2013 6:25am 22 MEQ/L N 22-30 Chloride Level January 03, 2013 6:25am 103 MEQ/L N 98-107 Creatine Kinase MB December 17, 2010 2:55pm 1.0 NG/ML N 0-3.4 Creatinine January 03, 2013 6:25am 1.9 MG/DL H 0.7-1.2 Eosinophils # (Auto) January 03, 2013 6:25am 0.3 T/MM3 N 0-0.5 COMMENT [facility] WILL CALL Eosinophils (%) (Auto) January 03, 2013 6:25am 3.0 % N 0-4 COMMENT [facility] WILL CALL Globulin January 03, 2013 6:25am 3.3 G/DL N 2.4-3.6 Glomerular Filtration Rate Calc January 03, 2013 6:25am 26 - Glucometer March 28, 2014 7:33am 129 mg/dL H 65-110 Glucose Level January 03, 2013 6:25am 106 MG/DL N 65-110 Hematocrit January 03, 2013 6:25am 40.0 % N 36-46 COMMENT [facility] WILL CALL Hemoglobin January 03, 2013 6:25am 12.9 GM/DL N 12-16 COMMENT [facility] WILL CALL Immature Granulocyte # (Auto) January 03, 2013 6:25am 0.03 T/MM3 N 0.00- 0.03 COMMENT [facility] WILL CALL Immature Granulocyte % (Auto) January 03, 2013 6:25am 0.3 % N 0.0-0.5 COMMENT [facility] WILL CALL Lab Scanned Report January 04, 2013 1:45pm LAB TEST FORM REQUEST [id number] - Lymphocytes # (Auto) January 03, 2013 6:25am 2.8 T/MM3 N 1-4.8 COMMENT [facility] WILL CALL Lymphocytes # (Manual) December 18, 2010 5:25am 1.0 T/MM3 N 1-4.8 Lymphocytes % (Manual) December 18, 2010 5:25am 6.0 % L 23-45 Lymphocytes (%) (Auto) January 03, 2013 6:25am 27.4 % N 23-45 COMMENT [facility] WILL CALL Mean Corpuscular Hemoglobin January 03, 2013 6:25am 30.3 UUG N 26-34 COMMENT [facility] WILL CALL Mean Corpuscular Hemoglobin Concent January 03, 2013 6:25am 32.3 GM/DL N 31-37 COMMENT [facility] WILL CALL Mean Corpuscular Volume January 03, 2013 6:25am 93.9 UM3 N 80-100 COMMENT [facility] WILL CALL Mean Platelet Volume January 03, 2013 6:25am 10.3 UM3 N 9.4-12.4 COMMENT [facility] WILL CALL Monocytes # (Auto) January 03, 2013 6:25am 1.1 T/MM3 H 0-0.8 COMMENT [facility] WILL CALL Monocytes # (Manual) December 18, 2010 5:25am 0.5 T/MM3 N 0-0.8 Monocytes % (Manual) December 18, 2010 5:25am 3.0 % N 0-9.0 Monocytes (%) (Auto) January 03, 2013 6:25am 10.8 % H 0-9.0 COMMENT [facility] WILL CALL JY-Nue-M-Type Natriuretic Peptide October 04, 2011 4:40am 4080 PG/ML H 0- 175 Rule in cut points: <50 years old=450; 50-75 years old=900; >75 years old=1800; When utilizing ProBNP rule-in cut points, adjustment for impaired renal function is typically not required. Neutrophils # (Auto) January 03, 2013 6:25am 5.9 T/MM3 N 1.8-7.7 COMMENT [facility] WILL CALL Neutrophils # (Manual) December 18, 2010 5:25am 13.7 T/MM3 H 1.8-7.7 Neutrophils % (Manual) December 18, 2010 5:25am 86.0 % H 33-66 Neutrophils (%) (Auto) January 03, 2013 6:25am 58.0 % N 33-66 COMMENT [facility] WILL CALL Phosphorus Level October 02, 2011 5:05am 5.4 MG/DL H 2.5-4.5 Platelet Count January 03, 2013 6:25am 289 T/MM3 N 130-400 COMMENT [facility] WILL CALL Potassium Level January 03, 2013 6:25am 4.1 MEQ/L N 3.6-5 Prothromb Time International Ratio March 28, 2014 6:53am 1.18 H 0.81- 1.09 THERAPUTIC RANGE=2.00-3.00 FOR ANTI-THROMBOSIS THERAPUTIC RANGE=2.50- 3.50 FOR IMPLANTED VALVE RDW Standard Deviation January 03, 2013 6:25am 44.3 FL N 36.9-50.2 COMMENT [facility] WILL CALL Red Blood Count January 03, 2013 6:25am 4.26 M/MM3 N 4.00-5.20 COMMENT [facility] WILL CALL Sodium Level January 03, 2013 6:25am 143 MEQ/L N 134-144 Total Bilirubin January 03, 2013 6:25am 0.90 MG/DL N 0.20-1.30 Total Creatine Kinase October 01, 2011 3:59pm 60 U/L N 30-135 Total Protein January 03, 2013 6:25am 8.0 G/DL N 6.3-8.2 Troponin I December 18, 2010 5:25am 0.028 ng/ml N 0-0.12 Urine Bilirubin October 01, 2011 3:08pm Negative - Has specimen been collected/obtained? Y Urine Blood October 01, 2011 3:08pm Negative - Has specimen been collected/obtained? Y Urine Collection Type October 01, 2011 3:08pm Voided - Has specimen been collected/obtained? Y Urine Color October 01, 2011 3:08pm Yellow - Has specimen been collected/ obtained? Y Urine Glucose (UA) October 01, 2011 3:08pm Negative - Has specimen been collected/obtained? Y Urine Ketones October 01, 2011 3:08pm Negative - Has specimen been collected/obtained? Y Urine Leukocyte Esterase October 01, 2011 3:08pm Negative - Has specimen been collected/obtained? Y Urine Microscopic Not Indicated October 01, 2011 3:08pm Not indicated - Has specimen been collected/obtained? Y Urine Nitrite October 01, 2011 3:08pm Negative - Has specimen been collected/obtained? Y Urine Protein October 01, 2011 3:08pm Negative - Has specimen been collected/obtained? Y Urine Random Creatinine October 01, 2011 1:00pm 48.6 MG/DL - Has specimen been collected/obtained? Y Urine Random Sodium October 01, 2011 3:00pm 30 MEQ/L N 30-90 Has specimen been collected/obtained? Y Urine Specific [place] October 01, 2011 3:08pm 1.015 - Has specimen been collected/obtained? Y Urine Turbidity October 01, 2011 3:08pm Clear - Has specimen been collected/obtained? Y Urine Urobilinogen October 01, 2011 3:08pm Normal EU/DL - Has specimen been collected/obtained? Y Urine pH October 01, 2011 3:08pm 5.0 - Has specimen been collected/ obtained? Y White Blood Count January 03, 2013 6:25am 10.1 T/MM3 N 4.5-11.0 COMMENT [facility] WILL CALL Procedures Procedure Status Date Provider(s) Esophagogastroduodenoscopy (EGD) with closed biopsy completed 03/28/14 RUTH TELLEZ MD, FACS, CWS Colonoscopy completed 03/28/14 RUTH TELLEZ MD, FACS, CWS
--- OUTSIDE RECORDS SUMMARY | 2016-09-26 11:08 | XMS REPORT | Referral Summary ---
Author Author [facility] Organization [facility] Address Unknown Phone Unavailable Care Team Providers Care Curriculum Development Manager Name Role Phone Agnes Colón Primary Care Physician [phone] Encounter Date(s): 10/03/14 - 10/03/14 [facility] [address] [place] [id number] Discharge Diagnosis: Dyspnea Discharge Diagnosis: Coronary [...] Pharmacy: [facility], 3 mL NEB QID Start Date: 03/21/15 Status: Ordered Aspir 81 mg, Oral, Daily, 0 Refill(s) Start Date: 11/09/13 Status: Ordered CeleXA 40 mg oral tablet See Instructions, TAKE 1 TABLET EVERY DAY, # 90 tabs, 2 Refill(s), eRx: [facility], TAKE 1 TABLET EVERY DAY Start Date: 11/28/14 Status: Ordered Coumadin 4 mg oral tablet 4 mg 1 tabs, Oral, Daily, # 90 tabs, 1 Refill(s), Pharmacy: [facility], 1 tabs Oral Daily Start Date: 03/10/15 Status: Ordered DuoNeb 0.5 mg-2.5 mg/3 mL inhalation solution 3 mL, Inhalation, QID, # 60 Each, 0 Refill(s), Pharmacy: [facility] # [id number] Start Date: 03/26/15 Status: Ordered ferrous sulfate 325 mg (65 mg elemental iron) oral tablet 1 tabs, Oral, BID, # 60 tabs, 11 Refill(s), [facility], [facility] tabs Oral BID Start Date: 05/07/14 Status: Ordered GlipiZIDE XL 2.5 mg oral tablet, extended release 2.5 mg, Oral, BID, # 180 tabs, 1 Refill(s), Pharmacy: [facility], 2.5 mg Oral BID Start [...] Pharmacy: [facility], 1/2 tabs Oral Bedtime (once a day) Start Date: 11/29/14 Status: Ordered multivitamin Daily, 0 Refill(s) Start Date: 11/09/13 Status: Ordered Neurontin 300 mg oral capsule 300 mg 1 caps, Oral, BID, # 180 caps, 1 Refill(s), Pharmacy: [facility], 1 caps Oral BID Start Date: 03/10/15 Status: Ordered nitroglycerin 0.4 mg sublingual tablet 0.4 mg 1 tabs, SubLingual, q5min, as needed for chest pain, # 100 tabs, 1 Refill (s), Pharmacy: [facility], 1 tabs SubLingual q5min,PRN:as [...] days, # 9 tabs, 0 Refill(s), Pharmacy: [facility] #[id number], 3 tabs Oral Daily,x3 days Start Date: 03/26/15 Stop Date: 03/29/15 Status: Ordered promethazine-codeine 6.25 mg-10 mg/5 mL oral syrup 5 mL, Oral, q4hr, as needed for cough, # 90 mL, 0 Refill(s) Start Date: 03/28/15 Status: Ordered Protonix 40 mg oral delayed release tablet 1 tabs, Oral, BID, # 60 tabs, 11 Refill(s), [facility], 1 tabs Oral BID Start Date: [...] Pharmacy: [facility], Check 3 x a [...] stents, had blockage, collaterals developed; Dr. Malik [facility] surgery 2003 6for herniated disc 7fibrocystic disease 1983 [id number] Social History Social History Type Response Smoking Status Never smoker Assessment and Plan Extracted from: Title: Office Visit Note Author: Compa Malik MD Date: 10/03/14 Assessment/Plan 1.Dyspnea Ordered: Echo, 2-D + Doppler + Color Flow EKG with Interpretation [id number] Return to Clinic 2.Dry mouth Ordered: Echo, 2-D + Doppler + Color Flow EKG with Interpretation [id number] Return to Clinic 3.Ecchymosis Ordered: Echo, 2-D + Doppler + Color Flow EKG with Interpretation [id number] Return to Clinic 4.Atrial fibrillation Ordered: Echo, 2-D + Doppler + Color Flow EKG with Interpretation [id number] Return to Clinic 5.Chronic anticoagulation Ordered: Echo, 2-D + Doppler + Color Flow EKG with Interpretation [id number] Return to Clinic 6.Coronary heart disease Discussion [...] Doppler + Color Flow EKG with Interpretation [id number] Return to Clinic Referrals to Other Providers Referred by: Compa Malik MD
--- OUTSIDE RECORDS SUMMARY | 2016-09-26 11:08 | XMS REPORT | Referral Summary ---
Author Organization Unknown Address Unknown Phone Unavailable Care Team Providers Care Literacy Teacher Name Role Phone Agnes Colón Primary Care Physician [phone] Encounter Date(s): 09/04/14 - 09/04/14 [facility] [place], Family [address] [place] [address] Discharge Diagnosis: Keratoconjunctivitis sicca, in Sjogren's syndrome Discharge Diagnosis: Keratoconjunctivitis sicca Discharge Diagnosis: Sjogren's disease Discharge Diagnosis: Acute Venous Embolism and Thrombosis of Unspecified Deep Vessels of Lower Extremity Discharge Diagnosis: Renal failure Discharge Disposition: Home or Self Care Attending Physician: Chase Colón MD Admitting Physician: Chase Colón MD Vital Signs Most recent to 1 oldest [Reference Range]: Peripheral Pulse 80 bpm Rate [60-100 bpm] (09/04/14 8:29 AM) Blood Pressure 116/72 mmHg [90-140/60-90 mmHg] (09/04/14 8:29 AM) Problem List Condition Effective Dates Status [...] QID, # 120 tabs, 11 Refill(s), Pharmacy: [facility] #[id number] , 1 tabs Oral QID Start Date: 03/28/14 Status: Ordered CeleXA 40 mg oral tablet 1 tabs, Oral, Daily, # 90 tabs, 2 Refill(s), Pharmacy: [facility], 1 tabs Oral Daily Start Date: 01/07/14 Status: Ordered Coumadin 2 mg oral tablet See Instructions, TAKE 2 TABLETS EVERY DAY, # 180 tabs, 1 Refill(s), eRx: [facility], TAKE 2 TABLETS EVERY DAY Special Instructions: TAKE 2 TABLETS EVERY DAY Start Date: 03/27/14 Status: Ordered digoxin 125 mcg (0.125 mg) oral tablet 1 tabs, Oral, Daily, # 90 tabs, 1 Refill(s), Pharmacy: [facility], 1 tabs Oral Daily Start Date: 05/07/14 Status: Ordered ferrous sulfate 325 mg (65 mg elemental iron) oral tablet 1 tabs, Oral, BID, # 60 tabs, 11 Refill(s), Pharmacy: [facility], 1 tabs Oral BID Start Date: 05/07/14 Status: Ordered glipiZIDE XL Oral, Daily, 0 Refill(s) Start Date: 11/09/13 Status: Ordered Lasix 20 mg oral tablet See Instructions, TAKE 1 TABLET EVERY DAY, # 90 tabs, eRx: [facility], TAKE 1 TABLET EVERY DAY Special Instructions: TAKE 1 TABLET EVERY DAY Start Date: 07/10/14 Status: Ordered Lipitor 40 mg oral tablet 1/2 tabs, Oral, Bedtime (once a day), # 90 tabs, 0 Refill(s), Pharmacy: [facility], 1/2 tabs Oral Bedtime (once a [...] Instructions: PT/INR monthly and fax results to [phone] DX: DVT 453.40 Start Date: 05/31/14 Status: Ordered Protonix 40 mg oral delayed release tablet 1 tabs, Oral, BID, # 60 tabs, 11 Refill(s), Pharmacy: [facility], 1 tabs Oral BID Start Date: 05/07/14 Status: Ordered Refresh Dry Eye Therapy drops, Eye-Both, BID, 0 Refill(s) Start Date: 11/09/13 Status: Ordered Results Hematology Most recent to 1 oldest [Reference Range]: WBC [4.8-10.8 K/uL] 12.0 K/uL *HI* (09/04/14 9:08 AM) RBC [4.00-5.20 M/uL] 3.82 M/uL *LOW* (09/04/1408 AM) Hgb [12.0-16.0 12.1 gm/dL gm/dL] (09/04/14:08 AM) Hct [37.0-47.0 %] 36.6 % *LOW* (09/04/1408 AM) MCV [82.0-99.0 fL] 95.8 fL (09/04/1408 AM) MCH [27.0-32.0 pg] 31.7 pg (09/04/1408 AM) MCHC [32.0-36.0 33.1 gm/dL gm/dL] (09/04/14:08 AM) RDW [11.5-14.5 %] 15.0 % *HI* (09/04/1408 AM) Platelet [150-400 318 K/uL K/uL] (09/04/14:08 AM) MPV [8.8-14.8 fL] 10.3 fL (09/04/1408 AM) Immature 0.6 % Granulocytes (09/04/1408 ) [0.0-1.0 %] Neutrophils [51-75 70 % %] (09/04/14:08 AM) Lymphocytes [20-46 18 % %] *LOW* (09/04/1408 AM) Monocytes [4-11 %] 9 % (09/04/14:08 AM) Eosinophils [0-4 %] 2 % (09/04/1408 AM) Basophils [0-2 %] 0 % (09/04/1408 AM) Neutro Absolute 8.41 THOUS [1.90-7.00 THOUS] *HI* (09/04/14:08 AM) Lymph Absolute 2.10 THOUS [0.80-3.30 THOUS] (09/04/14 9:08 AM) [place] Absolute 1.10 THOUS [0.30-1.00 THOUS] *HI* (09/04/14:08 AM) Eos Absolute 0.26 THOUS [0.00-0.50 THOUS] (09/04/14 9:08 AM) Baso Absolute 0.04 THOUS [0.00-0.20 THOUS] (4/15/15 9:08 AM) Coagulation Most recent to 1 oldest [Reference Range]: INR [0.8-1.2] 1.9 1 *HI* (09/04/14 9:08 AM) 1Result Comment: Normal (no anticoagulant): 0.8 - 1.2 Units Routine Therapeutic Range: 2.0 - 3.0 Units High Risk Therapeutic Range: 2.5 - 3.5 Units Chemistry Most recent to 1 oldest [Reference Range]: Sodium Lvl [135-144 141 mEq/L mEq/L] (09/04/14 9:08 AM) Potassium Lvl 3.8 mEq/L [3.5-5.2 mEq/L] (09/04/14 9:08 AM) Chloride [99-111 107 mEq/L mEq/L] (09/04/14 9:08 AM) CO2 [22-31 mEq/L] 21 mEq/L *LOW* (09/04/14 9:08 AM) AGAP [3-20] 13 (09/04/14 9:08 AM) BUN [10-20 mg/dL] 36 mg/dL *HI* (09/04/14 9:08 AM) Glucose Lvl [70-99 73 mg/dL mg/dL] (09/04/14 9:08 AM) Creatinine Lvl 1.89 mg/dL [0.57-1.11 mg/dL] *HI* (09/04/14 9:08 AM) eGFR [>60 mL/min] 26 mL/min 2 *ABN* (09/04/14 9:08 AM) Calcium Lvl 9.2 mg/dL [8.9-10.5 mg/dL] (09/04/14 9:08 AM) 2Result Comment: Multiply eGFR results by 1.21 for race. Immunizations Vaccine Date Refusal Reason influenza virus vaccine, inactivated 02/11/14 influenza virus vaccine, live 03/16/12 pneumococcal 23-polyvalent vaccine 04/29/03 tetanus toxoid 05/27/95 Procedures Procedure Date Related Diagnosis Body Site Collection of venous blood by venipuncture 09/04/14 Colonoscopy1 03/28/14 Esophagogastroduodenoscopy and biopsy2 03/28/14 H/O esophagogastroduodenoscopy3 2009 S/P cardiac catheterization2002 S/P colonoscopy 1990 tailbone removed 1989 L ulnar transposition 1986 S/p breast biopsy, cyst 1983 D&C - Dilatation and curettage 1978 S/P carpal tunnel release 1978 L ear drum 1975 Back pain5, 6 CABG - Coronary artery [...] 2003 6for herniated disc 7fibrocystic disease 1983 [id number] Social History Social History Type Response Smoking Status Never smoker Assessment and Plan No data available for this section
--- OUTSIDE RECORDS SUMMARY | 2016-09-26 11:09 | XMS REPORT | Referral Summary ---
Author Author [facility] Organization [facility] Address Unknown Phone Unavailable Care Team Providers Care Electric Power Superintendent Name Role Phone Agnes Colón Primary Care Physician [phone] Encounter Date(s): 05/19/15 - 05/19/15 [facility] [address] [place] [address] Discharge Diagnosis: Status post surgery Discharge Diagnosis: Obesity 18-MAY-2015 19:18:44<$> Discharge Diagnosis: Abdominal wall hernia Discharge Disposition: -Home or Self Care Attending Physician: Chase Colón MD Admitting Physician: Chase Colón MD Vital Signs Most recent to 1 oldest [Reference Range]: Peripheral Pulse 88 bpm Rate [60-100 bpm] (05/19/15 2:55 PM) Blood Pressure 122/78 mmHg [90-140/60-90 mmHg] (05/19/15 2:55 PM) SpO2 97 % (05/19/15 2:55 PM) Problem List Condition Effective Dates Status [...] QID, # 360 mL, 0 Refill(s), Pharmacy: [facility], 3 mL NEB QID Start Date: 03/21/15 Status: Ordered Aspir 81 mg, Oral, Daily, 0 Refill(s) Start Date: 11/09/13 Status: Ordered CeleXA 40 mg oral tablet See Instructions, TAKE 1 TABLET EVERY DAY, # 90 tabs, 2 Refill(s), eRx: [facility], TAKE 1 TABLET EVERY DAY Start Date: 11/28/14 Status: Ordered Coumadin 4 mg oral tablet 4 mg 1 tabs, Oral, Daily, # 90 tabs, 1 Refill(s), Pharmacy: [facility], 1 tabs Oral Daily Start Date: 03/10/15 Status: Ordered Discontinue oxygen therapy Discontinue oxygen therapy, See Instructions, Pt no longer require oxygen therapy. Please discontinue orders and picking crew supervisor equipment. Fax to [facility] [phone], # 1 Each, 0 Refill(s) Start Date: 05/19/15 Status: Ordered DuoNeb 0.5 mg-2.5 mg/3 mL inhalation solution 3 mL, Inhalation, QID, # 60 Each, 0 Refill(s), Pharmacy: [facility] # [id number] Start Date: 03/26/15 Status: Ordered ferrous sulfate 325 mg (65 mg elemental iron) oral tablet 1 tabs, Oral, BID, # 60 tabs, 11 Refill(s), [facility], 1 tabs Oral BID Start Date: 05/07/14 Status: Ordered GlipiZIDE XL 2.5 mg oral tablet, extended release 2.5 mg, Oral, BID, # 180 tabs, 1 Refill(s), Pharmacy: [facility], 2.5 mg Oral BID Start Date: 03/10/15 Status: Ordered Lasix 20 mg oral tablet See Instructions, TAKE 1 TABLET EVERY DAY, # 90 tabs, eRx: [facility], TAKE 1 TABLET EVERY DAY Start Date: 04/16/15 Status: Ordered Lipitor 40 mg oral tablet 1/2 tabs, Oral, Bedtime (once a day), # 90 tabs, 2 Refill(s), Pharmacy: [facility], 1/2 tabs Oral Bedtime (once a day) Start Date: 11/29/14 Status: Ordered multivitamin Daily, 0 Refill(s) Start Date: 11/09/13 Status: Ordered Neurontin 300 mg oral capsule 300 mg 1 caps, Oral, BID, # 180 caps, 1 Refill(s), Pharmacy: [facility], 1 caps Oral BID Start Date: 03/10/15 Status: Ordered nitroglycerin 0.4 mg sublingual tablet 0.4 mg 1 tabs, SubLingual, q5min, as needed for chest pain, # 100 tabs, 1 Refill (s), Pharmacy: [facility], 1 tabs SubLingual q5min,PRN:as needed for chest pain Start Date: 05/19/15 Status: Ordered pindolol 5 mg oral tablet See Instructions, TAKE 1 TABLET EVERY DAY, # 90 tabs, 1 Refill(s), [facility], TAKE 1 TABLET EVERY DAY Start Date: 09/30/14 Status: Ordered Please draw lab work Please draw lab work, See Instructions, PT/INR monthly and fax results to [phone] DX: DVT 453.40, # 6 Each, 0 Refill(s) Start Date: 05/31/14 Status: Ordered promethazine-codeine 6.25 mg-10 mg/5 mL oral syrup 5 mL, Oral, q4hr, as needed for cough, # 120 mL, 1 Refill(s) Start Date: 04/15/15 Status: Ordered Protonix 40 mg oral delayed release tablet 40 mg 1 tabs, Oral, BID, # 180 tabs, 1 Refill(s), Pharmacy: [facility], 1 tabs Oral BID Start Date: 05/19/15 Status: Ordered Refresh Dry Eye Therapy drops, Eye-Both, QID, 0 Refill(s) Start Date: 11/09/13 Status: Ordered TRUE test blood glucose strips TRUE test blood glucose strips, See Instructions, Check 3 x a day / 3 x a week. Send 1 bottle of 100 strips., # 1 bottles, 3 Refill(s), [facility], Check 3 x a [...] 2003 6for herniated disc 7fibrocystic disease 1983 [id number] Social History Social History Type Response Smoking Status Never smoker Assessment and Plan Extracted from: Title: Ambulatory Patient Education Author: Chase Colón MD Date: Family Medicine Ventral Hernia A ventral hernia (also called an incisional hernia) is a hernia that occurs at the site of a previous surgical cut (incision) in the abdomen. The abdominal wall spans from your lower chest down to your pelvis. If the abdominal wall is weakened from a surgical incision, a hernia can occur. A hernia is a bulge of bowel or muscle tissue pushing out on the weakened part of the abdominal wall. Ventral hernias can get bigger from straining or lifting. Obese and older people are at higher risk for a ventral hernia. People who develop infections after surgery or require repeat incisions at the same site on the abdomen are also at increased risk. CAUSES A ventral hernia occurs because of weakness in the abdominal wall at an incision site. SYMPTOMS Common symptoms include: A visible bulge or lump on the abdominal wall. Pain or tenderness around the lump. Increased discomfort if you cough or make a sudden movement. If the hernia has blocked part of the intestine, a serious complication can occur (incarcerated or strangulated hernia). This can become a problem that requires emergency surgery because the blood flow to the blocked intestine may be cut off. Symptoms may include: Feeling sick to your stomach (nauseous). Throwing up (vomiting). Stomach swelling (distention) or bloating. Fever. Rapid heartbeat. DIAGNOSIS Your health care provider will take a medical history and perform a physical exam. Various tests may be ordered, such as: Blood tests. Urine tests. Ultrasonography. X-rays. Computed tomography (CT). TREATMENT Watchful waiting may be all that is needed for a smaller hernia that does not cause symptoms. Your health care provider may recommend the use of a supportive belt (truss) that helps to keep the abdominal wall intact. For larger hernias or those that cause pain, surgery to repair the hernia is usually recommended. If a hernia becomes strangulated, emergency surgery needs to be done right away. HOME CARE INSTRUCTIONS Avoid putting pressure or strain on the abdominal area. Avoid heavy lifting. Use good body positioning for physical tasks. Ask your health care provider about proper body positioning. Use a supportive belt as directed by your health care provider. Maintain a healthy weight. Eat foods that are high in fiber, such as whole grains, fruits, and vegetables. Fiber helps prevent difficult bowel movements (constipation). Drink enough fluids to keep your urine clear or pale yellow. Follow up with your health care provider as directed. SEEK MEDICAL CARE IF: Your hernia seems to be getting larger or more painful. SEEK IMMEDIATE MEDICAL CARE IF: You have abdominal pain that is sudden and sharp. Your pain becomes severe. You have repeated vomiting. You are sweating a lot. You notice a rapid heartbeat. You develop a fever. MAKE SURE YOU: Understand these instructions. Will watch your condition. Will get help right away if you are not doing well or get worse. Document Released: 04/25/2013 Document Revised: 09/23/2014 Document Reviewed: ExitCare Patient Information 2015 [employer] This information is not intended to replace advice given to you by your health care provider. Make sure you discuss any questions you have with your health care provider. Nutrition Obesity Obesity is having too much body fat and a body mass index (BMI) of 30 or more. BMI is a number based on your height and weight. The number is an estimate of how much body fat you have. Obesity can happen if you eat more calories than you can burn by exercising or other activity. It can cause major health problems or emergencies. HOME CARE Exercise and be active as told by your doctor. Try: Using stairs when you can. Parking farther away from store doors. Gardening, biking, or walking. Eat healthy foods and drinks that are low in calories. Eat more fruits and vegetables. Limit fast food, sweets, and snack foods that are made with ingredients that are not natural (processed food). Eat smaller amounts of food. Keep a journal and write down what you eat every day. Websites can help with this. Avoid drinking alcohol. Drink more water and drinks without calories. Take vitamins and dietary pills (supplements) only as told by your doctor. Try going to weight-loss support groups or classes to help lessen stress. Dietitians and counselors may also help. GET HELP RIGHT AWAY IF: You have chest pain or tightness. You have trouble breathing or feel short of breath. You feel weak or have loss of feeling (numbness) in your legs. You feel confused or have trouble talking. You have sudden changes in your vision. MAKE SURE YOU: Understand these instructions. Will watch your condition. Will get help right away if you are not doing well or get worse. Document Released: 07/31/2012 Document Revised: 09/23/2014 Document Reviewed: ExitCare Patient Information 2015 [employer], [facility]. This information is not intended to replace advice given to you by your health care provider. Make sure you discuss any questions you have with your health care provider. No follow up information was provided. Extracted from: Title: Office Visit Note Author: Chase Colón MD Date: 05/19/15 Assessment/Plan Abdominal wall hernia Healing. Ordered: Office Visit Level 3 Est 29592 Obesity 18-MAY-2015 19:18:44<$> Ordered: Office Visit Level 3 Est 06763 Status post surgery Not needing the oxygen and will stop it. Ordered: Office Visit Level 3 Est 08259 Orders: Misc Medication, Discontinue oxygen therapy, See Instructions, Pt no longer require oxygen therapy. Please discontinue orders and picking crew supervisor equipment. Fax to [facility] [phone], # 1 Each, 0 Refill(s) nitroglycerin, 0.4 mg 1 tabs, SubLingual, q5min, as needed for chest pain, # 100 tabs, 1 Refill(s), Pharmacy: [facility], 1 tabs SubLingual q5min,PRN:as needed for chest pain pantoprazole, 40 mg 1 tabs, Oral, BID, # 180 tabs, 1 Refill(s), Pharmacy: [facility], 1 tabs Oral BID
--- OUTSIDE RECORDS SUMMARY | 2016-09-26 11:09 | XMS REPORT | Continuity of Care Document ---
Author Author [facility] Organization [facility] Address Unknown Phone Unavailable Care Team Providers Care Clinical Sciences Professor Name Role Phone DMITRIY TAYLOR MD PP Unavailable Insurance Providers Payer Name Policy Number Subscriber Name Relationship [employer] [facility] [id number] Tiffanie Kurtz 16 Self Problems No Known Problems or Medical conditions. Family History History Response Recorded Date/Time HX of Orthopedic Surgeries Y LT CARPAL TUNNEL,TAIL BONE EX,HENIATED DISC,LEFT ULNAR TRANS 01/02/13 11:10am Hx Abdominal Surgery Y MAI 2011 01/02/13 11:10am HX Cerebrovascular Accident N 01/02/13 11:10am Hx Seizures N 01/02/13 11:10am Hx Angina Y "NOTHING LATELY" 01/02/13 11:10am Hx Congestive Heart Failure N 01/02/13 11:10am Hx Heart Attack N 01/02/13 11:10am Hx Hypertension Y 01/02/13 11:10am Hx Rheumatic Fever N 10/01/11 1:02pm Hx Chronic Obstructive Pulmonary Disease (COPD) N 01/02/13 11:10am Hx Diabetes Y 01/02/13 11:10am Hx Clotting Problems N 01/02/13 11:10am Hx Cancer N 01/02/13 11:10am Hx MRSA N 01/02/13 11:10am HX of Cardiac Surgeries Y HEART CATH, BYPASS 2012 01/02/13 11:10am HX of Reproductive Surgeries Y VAG HYSTERECTOMY 01/02/13 11:10am HX of Endocrine Surgeries N 01/02/13 11:10am HX of Throat Surgery Y TONSILS 01/02/13 11:10am HX of Neurological Surgeries N 01/02/13 11:10am Social History History Response Recorded Date/Time Smoking Status Never smoker 01/02/13 11:33am Chewing Tobacco Status N 01/02/13 11:10am Hx Substance Use N 01/02/13 11:10am Hx Alcohol Use N 01/02/13 11:10am Has the pt used tobacco in the last 12 months N 01/02/13 11:10am Allergies, Adverse Reactions, Alerts Allergen Type Severity Reaction Last Updated Red Dye Allergy Mild ITCH 10/01/11 Medications Medication Dose Units Route Sig Qty Days [Lovenox] DAILY Glipizide (Glipizide Er) 1 Tab PO DAILY Warfarin Sodium 1 Tab PO DAILY Pindolol 1 Tab PO DAILY Acetaminophen/Dp-Hydram Hcl (Tylenol P.m. Ex-Str Caplet) 2 Tab PO PRN Nitroglycerin 0.4 Mg SL PRN Simvastatin (Zocor) 20 Mg PO HS Gabapentin (Neurontin) 300 Mg PO DAILY Lansoprazole (Prevacid) 30 Mg PO DAILY Immunizations Name Given Type Hx Influenza Vaccination Y FALL 2011 H Hx Pneumococcal Vaccination Y JULY 2011 H Response Recorded Date/Time Status not known Unknown Results No Known Relevant Diagnostic Tests, Laboratory Data and/or Discharge Summary. Procedures Procedure Code Date LAPARO CHOLECYSTECTOMY/GRAPH 20375 12/17/10 CENTRAL VENOUS CATHETER PLACEMENT WITH GUIDANCE 38.97 10/01/11 Encounters Encounter Location Date/Time Discharged Inpatient [facility] 10/01/11 10:40am
--- OUTSIDE RECORDS SUMMARY | 2016-09-26 11:09 | XMS REPORT | Referral Summary ---
Author Author [facility] Organization [facility] Address Unknown Phone Unavailable Care Team Providers Care Legal Activity Adjudicator Name Role Phone Agnes Colón Primary Care Physician [phone] Encounter Date(s): 10/09/14 - 10/09/14 [facility] [address] [place], [place] [address] Discharge Diagnosis: OTHER DYSPNEA AND RESPIRATORY ABNORMALITY Discharge Diagnosis: ATRIAL FIBRILLATION Discharge Diagnosis: CHRONIC ISCHEMIC HEART DISEASE, UNSPECIFIED Discharge Diagnosis: Chronic anticoagulation Discharge Disposition: 01-Home or Self Care Attending Physician: Compa Malik MD Admitting Physician: Compa Malik MD Vital Signs No data available for [...] QID, # 360 mL, 0 Refill(s), Pharmacy: [facility], 3 mL NEB QID Start Date: 03/21/15 Status: Ordered Aspir 81 mg, Oral, Daily, 0 Refill(s) Start Date: 11/09/13 Status: Ordered CeleXA 40 mg oral tablet See Instructions, TAKE 1 TABLET EVERY DAY, # 90 tabs, 2 Refill(s), eRx: [facility], TAKE 1 TABLET EVERY DAY Start Date: 11/28/14 Status: Ordered Coumadin 4 mg oral tablet 4 mg 1 tabs, Oral, Daily, # 90 tabs, 1 Refill(s), Pharmacy: [facility], 1 tabs Oral Daily Start Date: 03/10/15 Status: Ordered DuoNeb 0.5 mg-2.5 mg/3 mL inhalation solution 3 mL, Inhalation, QID, # 60 Each, 0 Refill(s), Pharmacy: [facility] # [id number] Start Date: 03/26/15 Status: Ordered ferrous sulfate 325 mg (65 mg elemental iron) oral tablet 1 tabs, Oral, BID, # 60 tabs, 11 Refill(s), Pharmacy: [facility], 1 tabs Oral BID Start Date: 05/07/14 Status: Ordered GlipiZIDE XL 2.5 mg oral tablet, extended release 2.5 mg, Oral, BID, # 180 tabs, 1 Refill(s), Pharmacy: [facility], 2.5 mg Oral BID Start Date: 03/10/15 Status: Ordered Lasix 20 mg oral tablet See Instructions, TAKE 1 TABLET EVERY DAY, # 90 tabs, eRx: [facility], TAKE 1 TABLET EVERY DAY Start Date: 04/16/15 Status: Ordered Lipitor 40 mg oral tablet 1/2 tabs, Oral, Bedtime (once a day), # 90 tabs, 2 Refill(s), Pharmacy: [facility], 1/2 tabs Oral Bedtime (once a day) Start Date: 11/29/14 Status: Ordered multivitamin Daily, 0 Refill(s) Start Date: 11/09/13 Status: Ordered Neurontin 300 mg oral capsule 300 mg 1 caps, Oral, BID, # 180 caps, 1 Refill(s), Pharmacy: [facility], 1 caps Oral BID Start Date: 03/10/15 Status: Ordered nitroglycerin 0.4 mg sublingual tablet 0.4 mg 1 tabs, SubLingual, q5min, as needed for chest pain, # 100 tabs, 1 Refill (s), Pharmacy: [facility], 1 tabs SubLingual q5min,PRN:as needed for chest pain Start Date: 03/10/15 Status: Ordered pindolol 5 mg oral tablet See Instructions, TAKE 1 TABLET EVERY DAY, # 90 tabs, 1 Refill(s), eRx: [facility], TAKE 1 TABLET EVERY DAY Start Date: 09/30/14 Status: Ordered Please draw lab work Please draw lab work, See Instructions, PT/INR monthly and fax results to DX: DVT I82.409, # 7 Each, 0 Refill(s) Start Date: 04/15/15 Status: Ordered Please draw lab work Please [...] BID, # 60 tabs, 11 Refill(s), [facility], 1 tabs Oral BID Start Date: 05/07/14 Status: Ordered Refresh Dry Eye Therapy drops, Eye-Both, QID, 0 Refill(s) Start Date: 11/09/13 Status: Ordered TRUE test blood glucose strips TRUE test blood glucose strips, See Instructions, Check 3 x a day / 3 x a week. Send 1 bottle of 100 strips., # 1 bottles, 3 Refill(s), Pharmacy: [facility], Check 3 x [...] Hold Coumadin. C PCP in 4 weeks 3Shachantal ring, with dilation, gastric ulcers 4no stents, had blockage, collaterals developed; Dr. Malik 5back surgery 2003 6for herniated disc 7fibrocystic disease 1983 [address] [id number] Social History Social History Type Response Smoking Status Never smoker Assessment and Plan No data available for this section
--- OUTSIDE RECORDS SUMMARY | 2016-09-26 11:09 | XMS REPORT | Referral Summary ---
Author Author [facility] Organization [facility] Address Unknown Phone Unavailable Care Team Providers Care Hand Painter Name Role Phone Agnes Colón Primary Care Physician [phone] Encounter Date(s): 10/03/14 - 10/03/14 [facility] [address] [place] [address] Discharge Diagnosis: Dyspnea Discharge Diagnosis: Coronary [...] QID, # 360 mL, 0 Refill(s), Pharmacy: [facility], 3 mL NEB QID Start Date: 03/21/15 Status: Ordered Aspir 81 mg, Oral, Daily, 0 Refill(s) Start Date: 11/09/13 Status: Ordered CeleXA 40 mg oral tablet See Instructions, TAKE 1 TABLET EVERY DAY, # 90 tabs, 2 Refill(s), eRx: [facility], TAKE 1 TABLET EVERY DAY Start Date: 11/28/14 Status: Ordered Coumadin 4 mg oral tablet 4 mg 1 tabs, Oral, Daily, # 90 tabs, 1 Refill(s), Pharmacy: [facility], 1 tabs Oral Daily Start Date: 03/10/15 Status: Ordered DuoNeb 0.5 mg-2.5 mg/3 mL inhalation solution 3 mL, Inhalation, QID, # 60 Each, 0 Refill(s), Pharmacy: [facility] # [id number] Start Date: 03/26/15 Status: Ordered ferrous sulfate 325 mg (65 mg elemental iron) oral tablet 1 tabs, Oral, BID, # 60 tabs, 11 Refill(s), [facility], 1 tabs Oral BID Start Date: 05/07/14 Status: Ordered GlipiZIDE XL 2.5 mg oral tablet, extended release 2.5 mg, Oral, BID, # 180 tabs, 1 Refill(s), Pharmacy: [facility], 2.5 mg Oral BID Start Date: 03/10/15 Status: Ordered Lasix 20 mg oral tablet See Instructions, TAKE 1 TABLET EVERY DAY, # 90 tabs, 1 Refill(s), eRx: [facility], TAKE 1 TABLET EVERY DAY Start Date: 09/09/14 Status: Ordered Lipitor 40 mg oral tablet 1/2 tabs, Oral, Bedtime (once a day), # 90 tabs, 2 Refill(s), Pharmacy: [facility], 1/2 tabs Oral Bedtime (once a day) Start Date: 11/29/14 Status: Ordered multivitamin Daily, 0 Refill(s) Start Date: 11/09/13 Status: Ordered Neurontin 300 mg oral capsule 300 mg 1 caps, Oral, BID, # 180 caps, 1 Refill(s), Pharmacy: [facility], 1 caps Oral BID Start Date: 03/10/15 Status: Ordered nitroglycerin 0.4 mg sublingual tablet 0.4 mg 1 tabs, SubLingual, q5min, as needed for chest pain, # 100 tabs, 1 Refill (s), Pharmacy: [facility], 1 tabs SubLingual [...] BID, # 60 tabs, 11 Refill(s), Pharmacy: [facility], 1 tabs Oral BID Start Date: 05/07/14 Status: Ordered Refresh Dry Eye Therapy drops, Eye-Both, QID, 0 Refill(s) Start Date: 11/09/13 Status: Ordered TRUE test blood glucose strips TRUE test blood glucose strips, See Instructions, Check 3 x a day / 3 x a week. Send 1 bottle of 100 strips., # 1 bottles, 3 Refill(s), Pharmacy: [facility], Check 3 x [...] 2003 6for herniated disc 7fibrocystic disease 1983 18735 [id number] Social History Social History Type Response Smoking Status Never smoker Assessment and Plan Extracted from: Title: Office Visit Note Author: Compa Malik MD Date: 10/03/14 Assessment/Plan 1.Dyspnea Ordered: Echo, 2-D + Doppler + Color Flow EKG with Interpretation [id number] Return to Clinic 2.Dry mouth Ordered: Echo, 2-D + Doppler + Color Flow EKG with Interpretation [id number] Return to Clinic 3.Ecchymosis Ordered: Echo, 2-D + Doppler + Color Flow EKG with Interpretation [id number] Return to Clinic 4.Atrial fibrillation Ordered: Echo, 2-D + Doppler + Color Flow EKG with Interpretation [id number] Return to Clinic 5.Chronic anticoagulation Ordered: Echo, 2-D + Doppler + Color Flow EKG with Interpretation [id number] Return to Clinic 6.Coronary heart disease Discussion [...] Doppler + Color Flow EKG with Interpretation [id number] Return to Clinic Referrals to Other Providers Referred by: Compa Malik MD
--- OUTSIDE RECORDS SUMMARY | 2016-09-26 11:09 | XMS REPORT | Continuity of Care Document ---
Author Author [facility] Organization [facility] Address Unknown Phone Unavailable Care Team Providers Care Prototyper Name Role Phone DMITRIY TAYLOR MD PP Unavailable Insurance Providers Payer Name Policy Number Subscriber Name Relationship Medicarehumana Gold [facility] [id number] Tiffanie Kurtz 16 Self Problems No Known Problems or Medical conditions. Family History History Response Recorded Date/Time HX of Orthopedic Surgeries Y LT CARPAL TUNNEL,TAIL BONE EX,HENIATED DISC,LEFT ULNAR TRANS 12/19/12 3:04pm Hx Abdominal Surgery Y MAI 201012/19/12 3:04pm HX Cerebrovascular Accident N 12/19/12 3:04pm Hx Seizures N 12/19/12 3:04pm Hx Angina Y OCCASSIONALLY 12/19/12 3:04pm Hx Congestive Heart Failure N 12/19/12 3:04pm Hx Heart Attack N 12/19/12 3:04pm Hx Hypertension Y 12/19/12 3:04pm Hx Rheumatic Fever N 10/01/11 1:02pm Hx Chronic Obstructive Pulmonary Disease (COPD) N 12/19/12 3:04pm Hx Diabetes Y 12/19/12 3:04pm Hx Clotting Problems N 12/19/12 3:04pm Hx Cancer N 12/19/12 3:04pm Hx MRSA N 12/19/12 3:04pm HX of Cardiac Surgeries Y HEART CATH, BYPASS 201112/19/12 3:04pm HX of Reproductive Surgeries Y VAG HYSTERECTOMY 12/19/12 3:04pm HX of Endocrine Surgeries N 12/19/12 3:04pm HX of Throat Surgery Y TONSILS 12/19/12 3:04pm HX of Neurological Surgeries N 12/19/12 3:04pm Social History History Response Recorded Date/Time Smoking Status Never smoker 12/19/12 3:04pm Chewing Tobacco Status N 12/19/12 3:04pm Hx Substance Use N 12/19/12 3:04pm Hx Alcohol Use N 12/19/12 3:04pm Has the pt used tobacco in the last 12 months N 12/19/12 3:04pm Allergies, Adverse Reactions, Alerts Allergen Type Severity [...] Recorded Date/Time Status not known Unknown Results Test Date Result Interp. Ref. Range Prothromb Time International Ratio December 20, 2012 6:10am 1.02 N 0.86-1.10 Alanine Aminotransferase (ALT/SGPT) December 20, 2012 6:10am 39 U/L N 9-52 Albumin December 20, 2012 6:10am 4.3 G/DL N 3.5-5.0 Albumin/Globulin Ratio December 20, 2012 6:10am 1.4 RATIO N 1.1-2.2 Alkaline Phosphatase December 20, 2012 6:10am 82 U/L N 38-126 Anion Gap December 20, 2012 6:10am 16 MEQ/L H 5-15 Aspartate Amino Transf (AST/SGOT) December 20, 2012 6:10am 25 U/L N 14-36 BUN/Creatinine Ratio December 20, 2012 6:10am 13 RATIO N 6-26 Band Neutrophils # December 18, 2010 5:25am 0.8 T/MM3 - Band Neutrophils % December 18, 2010 5:25am 5.0 % N 0-6 Basophils # (Auto) December 20, 2012 6:10am 0.1 T/MM3 N 0-0.2 Basophils (%) (Auto) December 20, 2012 6:10am 0.8 % N 0-2 Blood Urea Nitrogen December 20, 2012 6:10am 19.0 MG/DL H 7-17 Calcium Level December 20, 2012 6:10am 9.0 MG/DL N 8.4-10.2 Calculated Osmolality December 20, 2012 6:10am 282 MOSM/KG H 261-280 Carbon Dioxide Level December 20, 2012 6:10am 22 MEQ/L N 22-30 Chloride Level December 20, 2012 6:10am 107 MEQ/L N 98-107 Creatine Kinase MB December 17, 2010 2:55pm 1.0 NG/ML N 0-3.4 Creatinine December 20, 2012 6:10am 1.5 MG/DL H 0.7-1.2 Eosinophils # (Auto) December 20, 2012 6:10am 0.4 T/MM3 N 0-0.5 Eosinophils (%) (Auto) December 20, 2012 6:10am 4.7 % H 0-4 Globulin December 20, 2012 6:10am 3.0 G/DL N 2.4-3.6 Glomerular Filtration Rate Calc December 20, 2012 6:10am 34 - Glucometer December 20, 2012 6:09am 110 mg/dL N 65-110 Glucose Level December 20, 2012 6:10am 108 MG/DL N 65-110 Hematocrit December 20, 2012 6:10am 34.4 % L 36-46 Hemoglobin December 20, 2012 6:10am 11.1 GM/DL L 12-16 Immature Granulocyte # (Auto) December 20, 2012 6:10am 0.02 T/MM3 N 0.00-0.03 Immature Granulocyte % (Auto) December 20, 2012 6:10am 0.2 % N 0.0-0.5 Lymphocytes # (Auto) December 20, 2012 6:10am 2.6 T/MM3 N 1-4.8 Lymphocytes # (Manual) December 18, 2010 5:25am 1.0 T/MM3 N 1-4.8 Lymphocytes % (Manual) December 18, 2010 5:25am 6.0 % L 23-45 Lymphocytes (%) (Auto) December 20, 2012 6:10am 28.9 % N 23-45 Mean Corpuscular Hemoglobin December 20, 2012 6:10am 30.8 UUG N 26-34 Mean Corpuscular Hemoglobin Concent December 20, 2012 6:10am 32.3 GM/DL N 31- 37 Mean Corpuscular Volume December 20, 2012 6:10am 95.6 UM3 N 80-100 Mean Platelet Volume December 20, 2012 6:10am 10.5 UM3 N 9.4-12.4 Monocytes # (Auto) December 20, 2012 6:10am 1.0 T/MM3 H 0-0.8 Monocytes # (Manual) December 18, 2010 5:25am 0.5 T/MM3 N 0-0.8 Monocytes % (Manual) December 18, 2010 5:25am 3.0 % N 0-9.0 Monocytes (%) (Auto) December 20, 2012 6:10am 10.7 % H 0-9.0 VR-Qsg-V-Type Natriuretic Peptide October 04, 2011 4:40am 4080 PG/ML H 0-175 Neutrophils # (Auto) December 20, 2012 6:10am 5.0 T/MM3 N 1.8-7.7 Neutrophils # (Manual) December 18, 2010 5:25am 13.7 T/MM3 H 1.8-7.7 Neutrophils % (Manual) December 18, 2010 5:25am 86.0 % H 33-66 Neutrophils (%) (Auto) December 20, 2012 6:10am 54.7 % N 33-66 Phosphorus Level October 02, 2011 5:05am 5.4 MG/DL H 2.5-4.5 Platelet Count December 20, 2012 6:10am 286 T/MM3 N 130-400 Potassium Level December 20, 2012 6:10am 3.7 MEQ/L N 3.6-5 RDW Standard Deviation December 20, 2012 6:10am 46.1 FL N 36.9-50.2 Red Blood Count December 20, 2012 6:10am 3.60 M/MM3 L 4.00-5.20 Sodium Level December 20, 2012 6:10am 145 MEQ/L H 134-144 Total Bilirubin December 20, 2012 6:10am 0.80 MG/DL N 0.20-1.30 Total Creatine Kinase October 01, 2011 3:59pm 60 U/L N 30-135 Total Protein December 20, 2012 6:10am 7.3 G/DL N 6.3-8.2 Troponin I December 18, 2010 5:25am 0.028 ng/ml N 0-0.12 Urine Bilirubin October 01, 2011 3:08pm Negative - Urine Blood October 01, 2011 3:08pm Negative - Urine Collection Type October 01, 2011 3:08pm Voided - Urine Color October 01, 2011 3:08pm Yellow - Urine Glucose (UA) October 01, 2011 3:08pm Negative - Urine Ketones October 01, 2011 3:08pm Negative - Urine Leukocyte Esterase October 01, 2011 3:08pm Negative - Urine Microscopic Not Indicated October 01, 2011 3:08pm Not indicated - Urine Nitrite October 01, 2011 3:08pm Negative - Urine Protein October 01, 2011 3:08pm Negative - Urine Random Creatinine October 01, 2011 1:00pm 48.6 MG/DL - Urine Random Sodium October 01, 2011 3:00pm 30 MEQ/L N 30-90 Urine Specific [place] October 01, 2011 3:08pm 1.015 - Urine Turbidity October 01, 2011 3:08pm Clear - Urine Urobilinogen October 01, 2011 3:08pm Normal EU/DL - Urine pH October 01, 2011 3:08pm 5.0 - White Blood Count December 20, 2012 6:10am 9.1 T/MM3 N 4.5-11.0 Procedures Procedure Code Date LAPARO CHOLECYSTECTOMY/GRAPH 33936 12/17/10 CENTRAL VENOUS CATHETER PLACEMENT WITH GUIDANCE 38.97 10/01/11 Encounters Encounter Location Date/Time Discharged Inpatient [facility] 10/01/11 10:40am
--- OUTSIDE RECORDS SUMMARY | 2016-09-26 11:09 | XMS REPORT | Referral Summary ---
Author Author [facility] Organization [facility] Address Unknown Phone Unavailable Care Team Providers Care Spot Welder Name Role Phone Agnes Colón Primary Care Physician [phone] Encounter Date(s): 10/03/14 - 10/03/14 [facility] [address] [place] [id number] Discharge Diagnosis: Dyspnea Discharge Diagnosis: [...] QID, # 360 mL, 0 Refill(s), Pharmacy: [facility], 3 mL NEB QID Start Date: 03/21/15 Status: Ordered Aspir 81 mg, Oral, Daily, 0 Refill(s) Start Date: 11/09/13 Status: Ordered CeleXA 40 mg oral tablet See Instructions, TAKE 1 TABLET EVERY DAY, # 90 tabs, 2 Refill(s), eRx: [facility], TAKE 1 TABLET EVERY DAY Start Date: 11/28/14 Status: Ordered Coumadin 4 mg oral tablet 4 mg 1 tabs, Oral, Daily, # 90 tabs, 1 Refill(s), Pharmacy: [facility], 1 tabs Oral Daily Start Date: 03/10/15 Status: Ordered DuoNeb 0.5 mg-2.5 mg/3 mL inhalation solution 3 mL, Inhalation, QID, # 60 Each, 0 Refill(s), Pharmacy: [facility] # [id number] Start Date: 03/26/15 Status: Ordered ferrous sulfate 325 mg (65 mg elemental iron) oral tablet 1 tabs, Oral, BID, # 60 tabs, 11 Refill(s), [facility], 1 tabs Oral BID Start Date: 05/07/14 Status: Ordered GlipiZIDE XL 2.5 mg oral tablet, extended release 2.5 mg, Oral, BID, # 180 tabs, 1 Refill(s), Pharmacy: [facility], 2.5 mg Oral BID Start Date: 03/10/15 Status: Ordered Lasix 20 mg oral tablet See Instructions, TAKE 1 TABLET EVERY DAY, # 90 tabs, 1 Refill(s), eRx: [facility], TAKE 1 TABLET EVERY DAY Start Date: 09/09/14 Status: Ordered Lipitor 40 mg oral tablet 1/2 tabs, Oral, Bedtime (once a day), # 90 tabs, 2 Refill(s), Pharmacy: [facility], 1/2 tabs Oral Bedtime (once a day) Start Date: 11/29/14 Status: Ordered multivitamin Daily, 0 Refill(s) Start Date: 11/09/13 Status: Ordered Neurontin 300 mg oral capsule 300 mg 1 caps, Oral, BID, # 180 caps, 1 Refill(s), Pharmacy: [facility], 1 caps Oral BID Start Date: 03/10/15 Status: Ordered nitroglycerin 0.4 mg sublingual tablet 0.4 mg 1 tabs, SubLingual, q5min, as needed for chest pain, # 100 tabs, 1 Refill (s), Pharmacy: [facility], 1 tabs SubLingual [...] Instructions, PT/INR monthly and fax results to [phone] DX: DVT 453.40, # 6 Each, 0 Refill(s) Start Date: 05/31/14 Status: Ordered predniSONE 20 mg oral tablet 60 mg 3 tabs, Oral, Daily, X 3 days, # 9 tabs, 0 Refill(s), Pharmacy: [facility] #[id number], 3 tabs Oral Daily,x3 days Start Date: 03/26/15 Stop Date: 03/29/15 Status: Ordered promethazine-codeine 6.25 mg-10 mg/5 mL oral syrup 5 mL, Oral, q4hr, as needed for cough, # 90 mL, 0 Refill(s) Start Date: 03/26/15 Status: Ordered Protonix 40 mg oral delayed release tablet 1 tabs, Oral, BID, # 60 tabs, 11 Refill(s), Pharmacy: [facility], 1 tabs Oral BID Start Date: 05/07/14 Status: Ordered Refresh Dry Eye Therapy drops, Eye-Both, QID, 0 Refill(s) Start Date: 11/09/13 Status: Ordered TRUE test blood glucose strips TRUE test blood glucose strips, See Instructions, Check 3 x a day / 3 x a week. Send 1 bottle of 100 strips., # 1 bottles, 3 Refill(s), Pharmacy: [facility], Check 3 x [...] stents, had blockage, collaterals developed; Dr. Malik [facility] surgery 2003 6for herniated disc 7fibrocystic disease 1983 [id number] Social History Social History Type Response Smoking Status Never smoker Assessment and Plan Extracted from: Title: Office Visit Note Author: Compa Malik MD Date: 10/03/14 Assessment/Plan 1.Dyspnea Ordered: Echo, 2-D + Doppler + Color Flow EKG with Interpretation [id number] Return to Clinic 2.Dry mouth Ordered: Echo, 2-D + Doppler + Color Flow EKG with Interpretation [id number] Return to Clinic 3.Ecchymosis Ordered: Echo, 2-D + Doppler + Color Flow EKG with Interpretation [id number] Return to Clinic 4.Atrial fibrillation Ordered: Echo, 2-D + Doppler + Color Flow EKG with Interpretation [id number] Return to Clinic 5.Chronic anticoagulation Ordered: Echo, 2-D + Doppler + Color Flow EKG with Interpretation [id number] Return to Clinic 6.Coronary heart disease Discussion [...] Doppler + Color Flow EKG with Interpretation [id number] Return to Clinic Referrals to Other Providers Referred by: Compa Malik MD
--- OUTSIDE RECORDS SUMMARY | 2016-09-26 11:09 | XMS REPORT | Referral Summary ---
Author Author [facility] Organization [facility] Address Unknown Phone Unavailable Care Team Providers Care Director Of Residence Life Name Role Phone Agnes Colón Primary Care Physician [phone] Encounter Date(s): 10/03/14 - 10/03/14 [facility] [address] [place] [address] Discharge Diagnosis: Dyspnea Discharge Diagnosis: Coronary heart disease Discharge Diagnosis: Chronic anticoagulation Discharge Diagnosis: Ecchymosis Discharge Diagnosis: Dry mouth Discharge Diagnosis: Atrial fibrillation Discharge Disposition: 01-Home or Self Care Attending Physician: Cmopa Malik MD Admitting Physician: Compa Malik MD [...] QID, # 360 mL, 0 Refill(s), Pharmacy: [facility], 3 mL NEB QID Start Date: 03/21/15 Status: Ordered Aspir 81 mg, Oral, Daily, 0 Refill(s) Start Date: 11/09/13 Status: Ordered CeleXA 40 mg oral tablet See Instructions, TAKE 1 TABLET EVERY DAY, # 90 tabs, 2 Refill(s), eRx: [facility], TAKE 1 TABLET EVERY DAY Start Date: 11/28/14 Status: Ordered Coumadin 4 mg oral tablet 4 mg 1 tabs, Oral, Daily, # 90 tabs, 1 Refill(s), Pharmacy: [facility], 1 tabs Oral Daily Start Date: 03/10/15 Status: Ordered DuoNeb 0.5 mg-2.5 mg/3 mL inhalation solution 3 mL, Inhalation, QID, # 60 Each, 0 Refill(s), Pharmacy: [facility] # [id number] Start Date: 03/26/15 Status: Ordered ferrous sulfate 325 mg (65 mg elemental iron) oral tablet 1 tabs, Oral, BID, # 60 tabs, 11 Refill(s), [facility], 1 tabs Oral BID Start Date: 05/07/14 Status: Ordered GlipiZIDE XL 2.5 mg oral tablet, extended release 2.5 mg, Oral, BID, # 180 tabs, 1 Refill(s), Pharmacy: [facility], 2.5 mg Oral BID Start Date: 03/10/15 Status: Ordered Lasix 20 mg oral tablet See Instructions, TAKE 1 TABLET EVERY DAY, # 90 tabs, 1 Refill(s), eRx: [facility], TAKE 1 TABLET EVERY DAY Start Date: 09/09/14 Status: Ordered Lipitor 40 mg oral tablet 1/2 tabs, Oral, Bedtime (once a day), # 90 tabs, 2 Refill(s), Pharmacy: [facility], 1/2 tabs Oral Bedtime (once a day) Start Date: 11/29/14 Status: Ordered multivitamin Daily, 0 Refill(s) Start Date: 11/09/13 Status: Ordered Neurontin 300 mg oral capsule 300 mg 1 caps, Oral, BID, # 180 caps, 1 Refill(s), Pharmacy: [facility], 1 caps Oral BID Start Date: 03/10/15 Status: Ordered nitroglycerin 0.4 mg sublingual tablet 0.4 mg 1 tabs, SubLingual, q5min, as needed for chest pain, # 100 tabs, 1 Refill (s), Pharmacy: [facility], 1 tabs SubLingual q5min,PRN:as needed for chest pain Start Date: 03/10/15 Status: Ordered pindolol 5 mg oral tablet See Instructions, TAKE 1 TABLET EVERY DAY, # 90 tabs, 1 Refill(s), eRx: [facility], TAKE 1 TABLET EVERY DAY Start Date: 09/30/14 Status: Ordered Please draw lab work Please draw lab work, See Instructions, PT/INR monthly and fax results to [phone] DX: DVT 453.40, # 6 Each, 0 Refill(s) Start Date: 05/31/14 Status: Ordered promethazine-codeine 6.25 mg-10 mg/5 mL oral syrup 5 mL, Oral, q4hr, as needed for cough, # 90 mL, 0 Refill(s) Start Date: 03/28/15 Status: Ordered Protonix 40 mg oral delayed release tablet 1 tabs, Oral, BID, # 60 tabs, 11 Refill(s), Pharmacy: [facility], 1 tabs Oral BID Start Date: 05/07/14 Status: Ordered Refresh Dry Eye Therapy drops, Eye-Both, QID, 0 Refill(s) Start Date: 11/09/13 Status: Ordered TRUE test blood glucose strips TRUE test blood glucose strips, See Instructions, Check 3 x a day / 3 x a week. Send 1 bottle of 100 strips., # 1 bottles, 3 Refill(s), Pharmacy: [facility], Check 3 x a [...] 2003 6for herniated disc 7fibrocystic disease 1983 [id number] Social History Social History Type Response Smoking Status Never smoker Assessment and Plan Extracted from: Title: Office Visit Note Author: Compa Malik MD Date: 10/03/14 Assessment/Plan 1.Dyspnea Ordered: Echo, 2-D + Doppler + Color Flow EKG with Interpretation [id number] Return to Clinic 2.Dry mouth Ordered: Echo, 2-D + Doppler + Color Flow EKG with Interpretation [id number] Return to Clinic 3.Ecchymosis Ordered: Echo, 2-D + Doppler + Color Flow EKG with Interpretation [id number] Return to Clinic 4.Atrial fibrillation Ordered: Echo, 2-D + Doppler + Color Flow EKG with Interpretation [id number] Return to Clinic 5.Chronic anticoagulation Ordered: Echo, 2-D + Doppler + Color Flow EKG with Interpretation [id number] Return to Clinic 6.Coronary heart disease Discussion [...] Doppler + Color Flow EKG with Interpretation [id number] Return to Clinic Referrals to Other Providers Referred by: Compa Malik MD
--- OUTSIDE RECORDS SUMMARY | 2016-09-26 11:09 | XMS REPORT | Referral Summary ---
Author Author [facility] Medicine Organization [facility] Address Unknown Phone Unavailable Care Team Providers Care Healthcare Prof Name Role Phone Agnes Colón Primary Care Physician [phone] Encounter [facility] Date(s): 05/03/16 - 05/03/16 [facility] [address] [place] [address]- Discharge Diagnosis: Atrial fibrillation Discharge Disposition: 01-Home or Self Care Attending Physician: Chase Colón MD Admitting Physician: Chase Colón MD Vital Signs Most recent to 1 oldest [Reference Range]: Peripheral Pulse 104 bpm Rate [60-100 bpm] *HI* (05/03/16 9:27 AM) Blood Pressure 114/68 mmHg [90-140/60-90 mmHg] (05/03/16 9:27 AM) SpO2 95 % (05/03/16 9:27 AM) Problem List Condition Effective Dates Status [...] QID, # 360 mL, 0 Refill(s), Pharmacy: [facility], 3 mL NEB QID Start Date: 03/21/15 Status: Ordered Aspir 81 mg, Oral, Daily, 0 Refill(s) Start Date: 11/09/13 Status: Ordered atorvastatin 40 mg oral tablet See Instructions, TAKE 1/2 TABLET EVERY DAY AT BEDTIME, # 45 tabs, 2 Refill(s), eRx: [facility], TAKE 1/2 TABLET EVERY DAY AT BEDTIME Start Date: 02/25/16 Status: Ordered Augmentin 875 mg-125 mg oral tablet 1 tabs, Oral, q12hr, X 10 days, # 20 tabs, 0 Refill(s), [facility] #[id number] Start Date: 05/03/16 Stop Date: 05/13/16 Status: Ordered calcitriol 0.25 mcg oral capsule 0.25 mcg 1 caps, Oral, BID, # 30 caps, 0 Refill(s) Start Date: 01/05/16 Status: Ordered CeleXA 40 mg oral tablet See Instructions, TAKE 1 TABLET EVERY DAY, # 90 tabs, 2 Refill(s), eRx: [facility], TAKE 1 TABLET EVERY DAY Start Date: 06/13/15 Status: Ordered DuoNeb 0.5 mg-2.5 mg/3 mL inhalation solution 3 mL, Inhalation, QID, # 60 Each, 0 Refill(s), Pharmacy: [facility] # [id number] Start Date: 03/26/15 Status: Ordered ferrous sulfate 325 mg (65 mg elemental iron) oral tablet 1 tabs, Oral, BID, # 60 tabs, 11 Refill(s), Pharmacy: [facility], 1 tabs Oral BID Start Date: 05/07/14 Status: Ordered gabapentin 300 mg oral capsule See Instructions, TAKE 1 CAPSULE TWICE DAILY, # 180 caps, 1 Refill(s), eRx: [facility], TAKE 1 CAPSULE TWICE DAILY Start Date: 04/20/16 Status: Ordered Gas-X 160 mg, Chewed, TID, as needed for gas, 0 Refill(s) Start Date: 11/10/15 Status: Ordered glipiZIDE 2.5 mg oral tablet, extended release See Instructions, TAKE 1 TABLET TWICE DAILY, # 180 tabs, 1 Refill(s), eRx: [facility], TAKE 1 TABLET TWICE DAILY Start Date: 04/21/16 Status: Ordered multivitamin Daily, 0 Refill(s) Start Date: 11/09/13 Status: Ordered nitroglycerin 0.4 mg sublingual tablet 0.4 mg 1 tabs, SubLingual, q5min, as needed for chest pain, # 100 tabs, 1 Refill (s), Pharmacy: [facility], 1 tabs SubLingual q5min,PRN:as needed for chest pain Start Date: 05/19/15 Status: Ordered pindolol 5 mg oral tablet 5 mg 1 tabs, Oral, Daily, # 90 tabs, 3 Refill(s), Pharmacy: [facility], 1 tabs Oral Daily Start Date: 01/06/16 Status: Ordered Promethazine VC with Codeine oral syrup 5 mL, Oral, q4hr, as needed for cough, # 120 mL, 0 Refill(s) Start Date: 05/03/16 Stop Date: 05/13/16 Status: Ordered promethazine-codeine 6.25 mg-10 mg/5 mL oral syrup 5 mL, Oral, q4hr, as needed for cough, # 120 mL, 1 Refill(s) Start Date: 04/15/15 Status: Ordered Protime/INR Protime/INR, See Instructions, DX: DVT I82.409 Do lab testing monthly, unless otherwise indicated per INR results. Fax results to [phone], # 1 Each, 5 Refill(s) Start Date: 05/03/16 Status: Ordered Protonix 40 mg oral delayed release tablet 40 mg 1 tabs, Oral, BID, # 180 tabs, 3 Refill(s), Pharmacy: [facility], 1 tabs Oral BID Start Date: 11/10/15 Status: Ordered Refresh Dry Eye Therapy drops, Eye-Both, QID, 0 Refill(s) Start Date: 11/09/13 Status: Ordered TRUE test blood glucose strips TRUE test blood glucose strips, See Instructions, Check 3 x a day / 3 x a week. Send 1 bottle of 100 strips., # 1 bottles, 3 Refill(s), Pharmacy: [facility], Check 3 x a day / 3 x a week. Send 1 bottle of 100 strips. Start Date: 03/08/16 Status: Ordered Vitamin D3 2000 intl units oral tablet Intl_Units tabs, Oral, Daily, 0 Refill(s) Start Date: 12/24/14 Status: Ordered warfarin 4 mg oral tablet See Instructions, TAKE 1 TABLET EVERY DAY, # 90 tabs, 1 Refill(s), eRx: [facility], TAKE 1 TABLET EVERY DAY Start Date: 04/01/16 Status: Ordered Results Hematology Most recent to 1 oldest [Reference Range]: WBC [4.8-10.8 10.2 10*3/uL 10*3/uL] (05/03/16 10:35 AM) RBC [4.00-5.20] 3.56 *LOW* (05/03/16 10:35 AM) Hgb [12.0-16.0 11.0 gm/dL gm/dL] *LOW* (05/03/16 10:35 AM) Hct [37.0-47.0 %] 35.5 % *LOW* (05/03/16 10:35 AM) MCV [82.0-99.0 fL] 99.7 fL *HI* (05/03/16 10:35 AM) MCH [27.0-32.0 pg] 30.9 pg (05/03/16 10:35 AM) MCHC [32.0-36.0 31.0 gm/dL gm/dL] *LOW* (05/03/16 10:35 AM) RDW [11.5-14.5 %] 13.9 % (05/03/16 10:35 AM) Platelet [150-400 179 10*3/uL 10*3/uL] (05/03/16 10:35 AM) MPV [8.8-14.8 fL] 10.3 fL (05/03/16 10:35 AM) Immature 0.4 % Granulocytes (05/03/16 10:35 AM) [0.0-1.0 %] Neutrophils [51-75 76 % %] *HI* (05/03/16 10:35 AM) Lymphocytes [20-46 13 % %] *LOW* (05/03/16 10:35 AM) Monocytes [4-11 %] 10 % (05/03/16 10:35 AM) Eosinophils [0-4 %] 0 % (05/03/16 10:35 AM) Basophils [0-2 %] 0 % (05/03/16 10:35 AM) Neutro Absolute 7.71 10*3 [1.90-7.00 10*3] *HI* (05/03/16 10:35 AM) Lymph Absolute 1.33 10*3 [0.80-3.30 10*3] (05/03/16 10:35 AM) Williams Absolute 1.01 10*3 [0.30-1.00 10*3] *HI* (05/03/16 10:35 AM) Eos Absolute 0.02 10*3 [0.00-0.50 10*3] (05/03/16 10:35 AM) Baso Absolute 0.04 10*3 [0.00-0.20 10*3] (05/03/16 10:35 AM) Chemistry Most recent to 1 oldest [Reference Range]: Hgb A1c [4.1-5.6 %] 5.5 % (05/03/16 10:35 AM) eAvg Glucose 111.2 mg/dL (05/03/16 10:35 AM) Immunizations Given and Recorded Vaccine Date Status Refusal Reason influenza virus vaccine, inactivated 04/15/15 Given influenza virus vaccine, inactivated 02/11/14 Recorded influenza virus vaccine, live 03/16/12 Given pneumococcal 23-polyvalent vaccine 04/29/03 Recorded tetanus toxoid 05/27/95 Given Procedures Procedure Date Related Diagnosis Body Site Collection of venous blood by venipuncture 05/03/16 Laparoscopic repair of ventral hernia1 05/12/15 Colonoscopy2 03/28/14 Esophagogastroduodenoscopy and biopsy3 03/28/14 H/O esophagogastroduodenoscopy4 2009 S/P cardiac catheterization5 2002 S/P colonoscopy 1990 tailbone removed 1989 L ulnar transposition 1986 S/p breast biopsy, cyst 1983 D&C - Dilatation and curettage 1978 S/P carpal tunnel release 1978 L ear drum 1975 Back pain6, 7 CABG - Coronary artery bypass graft Cholecystectomy Lumpectomy8 Tonsillectomy9 Vaginal [id number] 1Robotic-assisted with incorporation of mesh 2Normal, no need to repeat unless symptoms warrant 3H. pylori negative. Marked gastritis. Duodenal diverticulum with adjacent ulcer. Placed on Carafate and PPI. Hold Coumadin. C PCP in 4 weeks 4Shatzkis ring, with dilation, gastric ulcers 5no stents, had blockage, collaterals developed; Dr. Malik 6back surgery 2003 7for herniated disc 8fibrocystic disease 1983 [id number] Social History Social History Type Response Smoking Status Never smoker Assessment and Plan Extracted from: Title: Ambulatory Patient Education Author: Chase Colón MD Date: 05/07 Emergency Medicine Acute Bronchitis Bronchitis is inflammation of the airways that extend from the windpipe into the lungs (bronchi). The inflammation often causes mucus to develop. This leads to a cough, which is the most common symptom of bronchitis. In acute bronchitis, the condition usually develops suddenly and goes away over time, usually in a couple weeks. Smoking, allergies, and asthma can make bronchitis worse. Repeated episodes of bronchitis may cause further lung problems. CAUSES Acute bronchitis is most often caused by the same virus that causes a cold. The virus can spread from person to person (contagious) through coughing, sneezing, and touching contaminated objects. SIGNS AND SYMPTOMS Cough. Fever. Coughing up mucus. Body aches. Chest congestion. Chills. Shortness of breath. Sore throat. DIAGNOSIS Acute bronchitis is usually diagnosed through a physical exam. Your health care provider will also ask you questions about your medical history. Tests, such as chest X-rays, are sometimes done to rule out other conditions. TREATMENT Acute bronchitis usually goes away in a couple weeks. Oftentimes, no medical treatment is necessary. Medicines are sometimes given for relief of fever or cough. Antibiotic medicines are usually not needed but may be prescribed in certain situations. In some cases, an inhaler may be recommended to help reduce shortness of breath and control the cough. A cool mist vaporizer may also be used to help thin bronchial secretions and make it easier to clear the chest. HOME CARE INSTRUCTIONS Get plenty of rest. Drink enough fluids to keep your urine clear or pale yellow (unless you have a medical condition that requires fluid restriction). Increasing fluids may help thin your respiratory secretions (sputum) and reduce chest congestion, and it will prevent dehydration. Take medicines only as directed by your health care provider. If you were prescribed an antibiotic medicine, finish it all even if you start to feel better. Avoid smoking and secondhand smoke. Exposure to cigarette smoke or irritating chemicals will make bronchitis worse. If you are a smoker, consider using nicotine gum or skin patches to help control withdrawal symptoms. Quitting smoking will help your lungs heal faster. Reduce the chances of another bout of acute bronchitis by washing your hands frequently, avoiding people with cold symptoms, and trying not to touch your hands to your mouth, nose, or eyes. Keep all follow-up visits as directed by your health care provider. SEEK MEDICAL CARE IF: Your symptoms do not improve after 1 week of treatment. SEEK IMMEDIATE MEDICAL CARE IF: You develop an increased fever or chills. You have chest pain. You have severe shortness of breath. You have bloody sputum. You develop dehydration. You faint or repeatedly feel like you are going to pass out. You develop repeated vomiting. You develop a severe headache. MAKE SURE YOU: Understand these instructions. Will watch your condition. Will get help right away if you are not doing well or get worse. This information is not intended to replace advice given to you by your health care provider. Make sure you discuss any questions you have with your health care provider. Document Released: 06/16/2005 Document Revised: 05/30/2015 Document Reviewed: [employer] Patient Education 2016 [employer] No follow up information was provided. Extracted from: Title: Office Visit Note Author: Chase Colón MD Date: 05/03/16 Assessment/Plan 1.Atrial fibrillation Continue with the Coumadin. Ordered: Office Visit Level 4 Est 86386 Acute bronchitis Rx for Augmentin and refill the cough syrup. Chest x-ray was negative for Pneumonia though there was a enlarged heart. Ordered: Office Visit Level 4 Est 86973 Diabetes No change in treatment. Ordered: Hemoglobin A1c Office Visit Level 4 Est 11413 Follow up if no better.
--- OUTSIDE RECORDS SUMMARY | 2016-09-26 11:10 | XMS REPORT | Referral Summary ---
Author Author [facility] Organization [facility] Address Unknown Phone Unavailable Care Team Providers Care Medical Anthropology Director Name Role Phone Agnes Colón Primary Care Physician [phone] Encounter [facility] [id number] Date(s): 03/10/15 - 03/10/15 [facility] [address] [place] [address]- Discharge Diagnosis: Diabetes Discharge Diagnosis: Sinus infections [...] days, # 20 tabs, 0 Refill(s), Pharmacy: [facility] #[id number] Start Date: 03/10/15 Stop Date: 03/20/15 Status: Ordered CeleXA 40 mg oral tablet See Instructions, TAKE 1 TABLET EVERY DAY, # 90 tabs, 2 Refill(s), eRx: [facility], TAKE 1 TABLET EVERY DAY Start Date: 11/28/14 Status: Ordered Coumadin 4 mg oral tablet 4 mg 1 tabs, Oral, Daily, # 90 tabs, 1 Refill(s), Pharmacy: [facility], 1 tabs Oral Daily Start Date: 03/10/15 Status: Ordered ferrous sulfate 325 mg (65 mg elemental iron) oral tablet 1 tabs, Oral, BID, # 60 tabs, 11 Refill(s), [facility], 1 tabs Oral BID Start Date: 05/07/14 Status: Ordered GlipiZIDE XL 2.5 mg oral tablet, extended release 2.5 mg, Oral, BID, # 180 tabs, 1 Refill(s), Pharmacy: [facility], 2.5 mg Oral BID Start Date: 03/10/15 Status: Ordered Lasix 20 mg oral tablet See Instructions, TAKE 1 TABLET EVERY DAY, # 90 tabs, 1 Refill(s), [facility]Rx: [facility], TAKE 1 TABLET EVERY DAY Start Date: 09/09/14 Status: Ordered Lipitor 40 mg oral tablet 1/2 tabs, Oral, Bedtime (once a day), # 90 tabs, 2 Refill(s), Pharmacy: [facility], 1/2 tabs Oral Bedtime (once a day) Start Date: 11/29/14 Status: Ordered multivitamin Daily, 0 Refill(s) Start Date: 11/09/13 Status: Ordered Neurontin 300 mg oral capsule 300 mg 1 caps, Oral, BID, # 180 caps, 1 Refill(s), Pharmacy: [facility], 1 caps Oral BID Start Date: 03/10/15 Status: Ordered nitroglycerin 0.4 mg sublingual tablet 0.4 mg 1 tabs, SubLingual, q5min, as needed for chest pain, # 100 tabs, 1 Refill (s), Pharmacy: [facility], 1 tabs SubLingual q5min,PRN:as needed for chest pain Start Date: 03/10/15 Status: Ordered pindolol 5 mg oral tablet See Instructions, TAKE 1 TABLET EVERY DAY, # 90 tabs, 1 Refill(s), [facility]Rx: [facility], TAKE 1 TABLET EVERY DAY Start Date: 09/30/14 Status: Ordered Please draw lab work Please draw lab work, See Instructions, PT/INR monthly and fax results to DX: DVT 453.40, # 6 Each, 0 Refill(s) Start Date: 05/31/14 Status: Ordered Protonix 40 mg oral delayed release tablet 1 tabs, Oral, BID, # 60 tabs, 11 Refill(s), [facility], 1 tabs Oral BID Start Date: 05/07/14 Status: Ordered Refresh Dry Eye Therapy drops, Eye-Both, QID, 0 Refill(s) Start Date: 11/09/13 Status: Ordered Tessalon 200 mg oral capsule 200 mg 1 caps, Oral, TID, X 10 days, # 30 caps, 0 Refill(s), Pharmacy: [facility] #[id number], 1 caps Oral TID,x10 days Start Date: 03/10/15 Stop Date: 03/20/15 Status: Ordered TRUE test blood glucose strips TRUE test blood glucose strips, See Instructions, Check 3 x a day / 3 x a week. Send 1 bottle of 100 strips., # 1 bottles, 3 Refill(s), Pharmacy: [facility], Check 3 x a [...] 2003 6for herniated disc 7fibrocystic disease 1983 [id number] Social History Social History Type Response Smoking [...] 09/23/2014 Document Reviewed: ExitCare Patient Information 2015 [employer]. This information is not intended to replace [...] 09/23/2014 Document Reviewed: ExitCare Patient Information 2015 [employer], [facility]. This information is not intended to replace advice given to you by your health care provider. Make sure you discuss any questions you have with your health care provider. No follow up information was provided.
--- OUTSIDE RECORDS SUMMARY | 2016-09-26 11:10 | XMS REPORT | Referral Summary ---
Author Author [facility] Organization [facility] Address Unknown Phone Unavailable Care Team Providers Care Bariatric Surgeon Name Role Phone Agnes Colón Primary Care Physician [phone] Encounter Date(s): 09/04/15 - 09/04/15 [facility] [address] [place] [id number] Discharge Diagnosis: Impingement syndrome of left shoulder Discharge Diagnosis: Rotator cuff tear arthropathy of right shoulder Discharge Disposition: 01-Home or Self Care Attending Physician: Remi Shin MD Admitting Physician: Remi Shin MD Vital Signs Most recent to 1 oldest [Reference Range]: Respiratory Rate 18 br/min [14-20 br/min] (09/04/15 10:29 AM) Problem List Condition Effective Dates Status [...] QID, # 360 mL, 0 Refill(s), Pharmacy: [facility], 3 mL NEB QID Start Date: 03/21/15 Status: Ordered Aspir 81 mg, Oral, Daily, 0 Refill(s) Start Date: 11/09/13 Status: Ordered CeleXA 40 mg oral tablet See Instructions, TAKE 1 TABLET EVERY DAY, # 90 tabs, 2 Refill(s), eRx: [facility], TAKE 1 TABLET EVERY DAY Start Date: 06/13/15 Status: Ordered Coumadin 4 mg oral tablet See Instructions, TAKE 1 TABLET EVERY DAY, # 90 tabs, 1 Refill(s), eRx: [facility], TAKE 1 TABLET EVERY DAY Start Date: 07/23/15 Status: Ordered Discontinue oxygen therapy Discontinue oxygen therapy, See Instructions, Pt no longer require oxygen therapy. Please discontinue orders and berry picker equipment. Fax to [facility] [phone], # 1 Each, 0 Refill(s) Start Date: 05/19/15 Status: Ordered DuoNeb 0.5 mg-2.5 mg/3 mL inhalation solution 3 mL, Inhalation, QID, # 60 Each, 0 Refill(s), Pharmacy: [facility] # [id number] Start Date: 03/26/15 Status: Ordered ferrous sulfate 325 mg (65 mg elemental iron) oral tablet 1 tabs, Oral, BID, # 60 tabs, 11 Refill(s), Pharmacy: [facility], 1 tabs Oral BID Start Date: 05/07/14 Status: Ordered GlipiZIDE XL 2.5 mg oral tablet, extended release 2.5 mg, Oral, BID, # 180 tabs, 1 Refill(s), Pharmacy: [facility], 2.5 mg Oral BID Start Date: 03/10/15 Status: Ordered Lasix 20 mg oral tablet See Instructions, TAKE 1 TABLET EVERY DAY, # 90 tabs, eRx: [facility], TAKE 1 TABLET EVERY DAY Start Date: 08/15/15 Status: Ordered Lipitor 40 mg oral tablet 1/2 tabs, Oral, Bedtime (once a day), # 90 tabs, 2 Refill(s), Pharmacy: [facility], 1/2 tabs Oral Bedtime (once a day) Start Date: 11/29/14 Status: Ordered multivitamin Daily, 0 Refill(s) Start Date: 11/09/13 Status: Ordered Neurontin 300 mg oral capsule See Instructions, TAKE 1 CAPSULE TWICE DAILY, # 180 caps, 1 Refill(s), eRx: [facility], TAKE 1 CAPSULE TWICE DAILY Start Date: 06/03/15 Status: Ordered nitroglycerin 0.4 mg sublingual tablet 0.4 mg 1 tabs, SubLingual, q5min, as needed for chest pain, # 100 tabs, 1 Refill (s), Pharmacy: [facility], 1 tabs SubLingual q5min,PRN:as needed for chest pain Start Date: 05/19/15 Status: Ordered pindolol 5 mg oral tablet See Instructions, TAKE 1 TABLET EVERY DAY, # 90 tabs, 0 Refill(s), Pharmacy: [facility] #[id number], TAKE 1 TABLET EVERY DAY Start Date: [...] 180 tabs, 1 Refill(s), Pharmacy: [facility], 1 tabs Oral BID Start Date: 05/19/15 Status: Ordered Refresh Dry Eye Therapy drops, Eye-Both, QID, 0 Refill(s) Start Date: 11/09/13 Status: Ordered TRUE test blood glucose strips TRUE test blood glucose strips, See Instructions, Check 3 x a day / 3 x a week. Send 1 bottle of 100 strips., # 1 bottles, 3 Refill(s), Pharmacy: [facility], Check 3 x [...] Procedures Procedure Date Related Diagnosis Body Site Arthrocentesis, aspiration and/or injection, 09/04/15 major joint or bursa (eg, shoulder, hip, knee, subacromial bursa); without ultrasound guidance Arthrocentesis, aspiration and/or injection, 09/04/15 major joint or bursa (eg, shoulder, hip, knee, subacromial bursa); without ultrasound guidance Laparoscopic repair of ventral hernia1 05/12/15 Colonoscopy2 03/28/14 Esophagogastroduodenoscopy and biopsy3 03/28/14 H/O esophagogastroduodenoscopy2009 S/P cardiac catheterization5 2002 S/P colonoscopy 1989 tailbone removed 1989 L ulnar transposition 1986 S/p breast biopsy, cyst 1982 D&C - Dilatation and curettage 1978 S/P carpal tunnel release 1978 L ear drum 1974 Back pain6, 7 CABG - Coronary artery bypass graft Cholecystectomy Lumpectomy8 Tonsillectomy9 Vaginal [id number] 1Robotic-assisted with incorporation of mesh 2Normal, no need to repeat unless symptoms warrant 3H. pylori negative. Marked gastritis. Duodenal diverticulum with adjacent ulcer. Placed on Carafate and PPI. Hold Coumadin. C PCP in 4 weeks 4Shatzkis ring, with dilation, gastric ulcers 5no stents, had blockage, collaterals developed; Dr. Malik 6back surgery 2003 7for herniated disc 8fibrocystic disease 1983 [id number] Social History Social History Type Response Smoking Status Never smoker Assessment and Plan Extracted from: Title: Office Visit Note Author: Remi Shin MD Date: 09/04/15 Assessment/Plan Impingement syndrome of left shoulder Ordered: triamcinolone, 2 mL, IntraARTICULAR , Once, First Dose: 09/04/15 12:00:00 CDT, Stop Date: 09/04/15 12:00:00 CDT, [place] [id number] triamcinolone, 2 mL, IntraARTICULAR , Once, First Dose: 09/04/15 12:00:00 CDT, Stop Date: 09/04/15 12:00:00 [place] [id number] Arthro/Asp Major Joint Inj (Shoulder, Hip, Knee) Arthro/Asp Major Joint Inj (Shoulder, Hip, Knee) Office Visit Level 3 Est 03877 Rotator cuff tear arthropathy of right shoulder I talk with her about both of her shoulders I think she probably has rotator cuff tear arthropathy in both. She would like to do an injection. I think that's very reasonable. Then she'll need to follow up probably with Dr. Reina in the future. Procedure note: Both the right and left shoulder was sterilely prepped with Betadine. Injected 80 mg of Kenalog and 8 mL one percent lidocaine in the subacromial area both right and the left shoulder. She is to watch her blood sugar carefully. If it does go greater than 200 she'll need to do double her medications until it's back under 200. Her current blood sugar was 89 this morning and she states it in the past that does not cause her blood sugar to go up. Ordered: triamcinolone, 2 mL, IntraARTICULAR , Once, First Dose: 09/04/15 12:00:00 CDT, Stop Date: 09/04/15 12:00:00 CDT, [place] [id number] triamcinolone, 2 mL, IntraARTICULAR , Once, First Dose: 09/04/15 12:00:00 CDT, Stop Date: 09/04/15 12:00:00 CDT, NDC [id number] Arthro/Asp Major Joint Inj (Shoulder, Hip, Knee) 33455 Arthro/Asp Major Joint Inj (Shoulder, Hip, Knee) Office Visit Level 3 Est 61563
--- OUTSIDE RECORDS SUMMARY | 2016-09-26 11:10 | XMS REPORT | Referral Summary ---
Author Author [facility] Medicine Organization [facility] Address Unknown Phone Unavailable Care Team Providers Care Philosophy Faculty Name Role Phone Agnes Colón Primary Care Physician [phone] Encounter VC Date(s): 04/15/15 - 04/15/15 [facility] [address] [place] [address]- Discharge Diagnosis: Umbilical hernia Discharge Disposition: 01-Home or Self Care Attending Physician: Chase Colón MD Admitting Physician: Chase Colón MD Vital Signs Most recent to 1 oldest [Reference Range]: Peripheral Pulse 90 bpm Rate [60-100 bpm] (04/15/15 11:10 AM) Blood Pressure 126/76 mmHg [90-140/60-90 mmHg] (04/15/15 11:10 AM) SpO2 94 % (04/15/15 11:10 AM) Problem List Condition Effective Dates Status [...] QID, # 360 mL, 0 Refill(s), Pharmacy: [facility], 3 mL NEB QID Start Date: 03/21/15 Status: Ordered Aspir 81 mg, Oral, Daily, 0 Refill(s) Start Date: 11/09/13 Status: Ordered CeleXA 40 mg oral tablet See Instructions, TAKE 1 TABLET EVERY DAY, # 90 tabs, 2 Refill(s), eRx: [facility], TAKE 1 TABLET EVERY DAY Start Date: 11/28/14 Status: Ordered Coumadin 4 mg oral tablet 4 mg 1 tabs, Oral, Daily, # 90 tabs, 1 Refill(s), Pharmacy: [facility], 1 tabs Oral Daily Start Date: 03/10/15 Status: Ordered DuoNeb 0.5 mg-2.5 mg/3 mL inhalation solution 3 mL, Inhalation, QID, # 60 Each, 0 Refill(s), Pharmacy: [facility] # [id number] Start Date: 03/26/15 Status: Ordered ferrous sulfate 325 mg (65 mg elemental iron) oral tablet 1 tabs, Oral, BID, # 60 tabs, 11 Refill(s), Pharm[facility]: [facility], 1 tabs Oral BID Start Date: 05/07/14 Status: Ordered GlipiZIDE XL 2.5 mg oral tablet, extended release 2.5 mg, Oral, BID, # 180 tabs, 1 Refill(s), Pharmacy: [facility], 2.5 mg Oral BID Start Date: 03/10/15 Status: Ordered Lasix 20 mg oral tablet See Instructions, TAKE 1 TABLET EVERY DAY, # 90 tabs, 1 Refill(s), eRx: [facility], TAKE 1 TABLET EVERY DAY Start Date: 09/09/14 Status: Ordered Lipitor 40 mg oral tablet 1/2 tabs, Oral, Bedtime (once a day), # 90 tabs, 2 Refill(s), Pharmacy: [facility], 1/2 tabs Oral Bedtime (once a day) Start Date: 11/29/14 Status: Ordered multivitamin Daily, 0 Refill(s) Start Date: 11/09/13 Status: Ordered Neurontin 300 mg oral capsule 300 mg 1 caps, Oral, BID, # 180 caps, 1 Refill(s), Pharmacy: [facility], 1 caps Oral BID Start Date: 03/10/15 Status: Ordered nitroglycerin 0.4 mg sublingual tablet 0.4 mg 1 tabs, SubLingual, q5min, as needed for chest pain, # 100 tabs, 1 Refill (s), Pharmacy: [facility], 1 tabs SubLingual [...] Instructions, PT/INR monthly and fax results to [phone] DX: DVT I82.409, # 7 Each, 0 [...] BID, # 60 tabs, 11 Refill(s), Pharmacy: [facility], 1 tabs Oral BID Start Date: 05/07/14 Status: Ordered Refresh Dry Eye Therapy drops, Eye-Both, QID, 0 Refill(s) Start Date: 11/09/13 Status: Ordered TRUE test blood glucose strips TRUE test blood glucose strips, See Instructions, Check 3 x a day / 3 x a week. Send 1 bottle of 100 strips., # 1 bottles, 3 Refill(s), Pharmacy: [facility], Check 3 x [...] 2003 6for herniated disc 7fibrocystic disease 1983 [id number] Social History Social History Type Response Smoking Status Never smoker Assessment and Plan Extracted from: Title: Ambulatory Patient Education Author: Chase Colón MD Date: Family Medicine Hernia Repair Care After These instructions give you information on caring for yourself after your procedure. Your doctor may also give you more specific instructions. Call your doctor if you have any problems or questions after your procedure. HOME CARE You may have changes in your poops (bowel movements). You may have loose or watery poop (diarrhea). You may be not able to poop. Your bowels will slowly get back to normal. Do not eat any food that makes you sick to your stomach (nauseous). Eat small meals 4 to 6 times a day instead of 3 large ones. Do not drink pop. It will give you gas. Do not drink alcohol. Do not lift anything heavier than 10 pounds. This is about the weight of a gallon of milk. Do not do anything that makes you very tired for at least 6 weeks. Do not get your wound wet for 2 days. You may take a sponge bath during this time. After 2 days you may take a shower. Gently pat your surgical cut (incision ) dry with a towel. Do not rub it. For men: You may have been given an athletic supporter (scrotal support) before you left the hospital. It holds your scrotum and testicles closer to your body so there is no strain on your wound. Wear the supporter until your doctor tells you that you do not need it anymore. GET HELP RIGHT AWAY IF: You have watery poop, or cannot poop for more than 3 days. You feel sick to your stomach or throw up (vomit) more than 2 or 3 times. You have temperature by mouth above 102 F (38.9 C). You see redness or puffiness (swelling) around your wound. You see yellowish white fluid (pus) coming from your wound. You see a bulge or bump in your lower belly (abdomen) or near your groin. You develop a rash, trouble breathing, or any other symptoms from medicines taken. MAKE SURE YOU: Understand these instructions. Will watch your condition. Will get help right away if your are not doing well or get worse. Document Released: 04/21/2009 Document Revised: 07/31/2012 Document Reviewed: [facility] Patient Information 2015 [employer]. This information is not intended to replace advice given to you by your health care provider. Make sure you discuss any questions you have with your health care provider. No follow up information was provided. Extracted from: Title: Office Visit Note Author: Chase Colón MD Date: 04/15/15 Assessment/Plan Encounter for immunization Ordered: Office Visit Level 2 Est 61695 Umbilical hernia, Umbilical hernia without obstruction or gangrene Refer patient to Dr. Underwood Ordered: Office Visit Level 2 Est 26690 Orders: Misc Medication, Please draw lab work, See Instructions, PT/INR monthly and fax results to [phone] DX: DVT I82.409, # 7 Each, 0 Refill(s) promethazine-codeine, 5 mL, Oral, q4hr, as needed for cough, # 120 mL, 1 Refill(s)
--- OUTSIDE RECORDS SUMMARY | 2016-09-26 11:10 | XMS REPORT | Referral Summary ---
Author Author [facility] Organization [facility] Address Unknown Phone Unavailable Care Team Providers Care Chemistry Quality Control Analyst Name Role Phone Agnes Colón Primary Care Physician [phone] Encounter VC Date(s): 01/22/15 - 01/22/15 [facility] [address] [place] [address] Discharge Diagnosis: Acute Venous Embolism and Thrombosis of Unspecified Deep Vessels of Lower Extremity Discharge Diagnosis: Type 2 DM uncontrolled Discharge Diagnosis: Contusion Discharge Disposition: 01-Home or Self Care Attending Physician: Chase Colón MD Admitting Physician: Chase Colón MD Vital Signs Most recent to 1 oldest [Reference Range]: Blood Pressure 142/78 mmHg [90-140/60-90 mmHg] *HI* (01/22/15 8:50 AM) Problem List Condition Effective Dates Status [...] QID, # 360 mL, 0 Refill(s), Pharmacy: [facility], 3 mL NEB QID Start Date: 03/21/15 Status: Ordered Aspir 81 mg, Oral, Daily, 0 Refill(s) Start Date: 11/09/13 Status: Ordered CeleXA 40 mg oral tablet See Instructions, TAKE 1 TABLET EVERY DAY, # 90 tabs, 2 Refill(s), eRx: [facility], TAKE 1 TABLET EVERY DAY Start Date: 06/13/15 Status: Ordered Coumadin 4 mg oral tablet See Instructions, TAKE 1 TABLET EVERY DAY, # 90 tabs, 1 Refill(s), eRx: [facility], TAKE 1 TABLET EVERY DAY Start Date: 07/23/15 Status: Ordered Discontinue oxygen therapy Discontinue oxygen therapy, See Instructions, Pt no longer require oxygen therapy. 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 Fax to [facility] [phone], # 1 Each, 0 Refill(s) Start Date: 05/19/15 Status: Ordered DuoNeb 0.5 mg-2.5 mg/3 mL inhalation solution 3 mL, Inhalation, QID, # 60 Each, 0 Refill(s), Pharmacy: [facility] # [id number] Start Date: 03/26/15 Status: Ordered ferrous sulfate 325 mg (65 mg elemental iron) oral tablet 1 tabs, Oral, BID, # 60 tabs, 11 Refill(s), [facility], 1 tabs Oral BID Start Date: 05/07/14 Status: Ordered GlipiZIDE XL 2.5 mg oral tablet, extended release 2.5 mg, Oral, BID, # 180 tabs, 1 Refill(s), Pharmacy: [facility], 2.5 mg Oral BID Start Date: 03/10/15 Status: Ordered Lasix 20 mg oral tablet See Instructions, TAKE 1 TABLET EVERY DAY, # 90 tabs, eRx: [facility], TAKE 1 TABLET EVERY DAY Start Date: 06/17/15 Status: Ordered Lipitor 40 mg oral tablet 1/2 tabs, Oral, Bedtime (once a day), # 90 tabs, 2 Refill(s), Pharmacy: [facility], 1/2 tabs Oral Bedtime (once a day) Start Date: 11/29/14 Status: Ordered multivitamin Daily, 0 Refill(s) Start Date: 11/09/13 Status: Ordered Neurontin 300 mg oral capsule See Instructions, TAKE 1 CAPSULE TWICE DAILY, # 180 caps, 1 Refill(s), eRx: [facility], TAKE 1 CAPSULE TWICE DAILY Start Date: 06/03/15 Status: Ordered nitroglycerin 0.4 mg sublingual tablet 0.4 mg 1 tabs, SubLingual, q5min, as needed for chest pain, # 100 tabs, 1 Refill (s), Pharmacy: [facility], 1 tabs SubLingual q5min,PRN:as needed for chest pain Start Date: 05/19/15 Status: Ordered pindolol 5 mg oral tablet See Instructions, TAKE 1 TABLET EVERY DAY, # 90 tabs, 0 Refill(s), Pharmacy: [facility] #[id number], TAKE 1 TABLET EVERY DAY Start Date: [...] 180 tabs, 1 Refill(s), Pharmacy: [facility], 1 tabs Oral [...] 1 bottles, 3 Refill(s), Pharmacy: [facility], Check 3 x a day / 3 x a week. Send 1 bottle of 100 strips. Start Date: 01/22/15 Status: Ordered Vitamin D3 2000 intl units oral tablet Intl_Units tabs, Oral, Daily, 0 Refill(s) Start Date: 12/24/14 Status: Ordered Results Coagulation Most recent to 1 oldest [Reference Range]: PT Venous (01/22/15 12:17 AM) INR [0.8-1.2] 3.0 1 *HI* (01/22/15 12:17 AM) 1Result Comment: Normal (no anticoagulant): 0.8 [...] Site Laparoscopic repair of ventral hernia1 05/12/15 Collection of venous blood by venipuncture 01/22/15 Collection of venous blood by venipuncture 01/22/15 Colonoscopy2 03/28/14 Esophagogastroduodenoscopy and biopsy3 03/28/14 H/O [...] 2003 7for herniated disc 8fibrocystic disease 1983 [id number] Social History Social History Type Response Smoking Status Never smoker Assessment and Plan Extracted from: Title: Ambulatory Patient Education Author: Chase Colón MD Date: 01/26 Family Medicine Contusion A contusion is a deep bruise. Contusions are the result of an injury that caused bleeding under the skin. The contusion may turn blue, purple, or yellow. Minor injuries will give you a painless contusion, but more severe contusions may stay painful and swollen for a few weeks. CAUSES A contusion is usually caused by a blow, trauma, or direct force to an area of the body. SYMPTOMS Swelling and redness of the injured area. Bruising of the injured area. Tenderness and soreness of the injured area. Pain. DIAGNOSIS The diagnosis can be made by taking a history and physical exam. An X-ray, CT scan, or MRI may be needed to determine if there were any associated injuries, such as fractures. TREATMENT Specific treatment will depend on what area of the body was injured. In general , the best treatment for a contusion is resting, icing, elevating, and applying cold compresses to the injured area. Grsq-dxx-szjnymq medicines may also be recommended for pain control. Ask your caregiver what the best treatment is for your contusion. HOME CARE INSTRUCTIONS Put ice on the injured area. Put ice in a plastic bag. Place a towel between your skin and the bag. Leave the ice on for 15-20 minutes, 3-4 times a day, or as directed by your health care provider. Only take quji-ppa-vfwrvxu or prescription medicines for pain, discomfort, or fever as directed by your caregiver. Your caregiver may recommend avoiding anti-inflammatory medicines (aspirin, ibuprofen, and naproxen) for 48 hours because these medicines may increase bruising. Rest the injured area. If possible, elevate the injured area to reduce swelling. SEEK IMMEDIATE MEDICAL CARE IF: You have increased bruising or swelling. You have pain that is getting worse. Your swelling or pain is not relieved with medicines. MAKE SURE YOU: Understand these instructions. Will watch your condition. Will get help right away if you are not doing well or get worse. Document Released: 02/16/2006 Document Revised: 05/14/2014 Document Reviewed: [facility] Patient Information 2015 [facility]. This information is not intended to replace advice given to you by your health care provider. Make sure you discuss any questions you have with your health care provider. No follow up information was provided. Extracted from: Title: Office Visit Note Author: Chase Colón MD Date: 01/22/15 Assessment/Plan Acute Venous Embolism and Thrombosis of Unspecified Deep Vessels of Lower Extremity continue with the current medications. Ordered: Office Visit Level 4 Est 63025 Contusion X-rays of the nose were negative for fractures. Ordered: Office Visit Level 4 Est 16669 Type 2 DM uncontrolled Ordered: Office Visit Level 4 Est 55081
--- OUTSIDE RECORDS SUMMARY | 2016-09-26 11:10 | XMS REPORT | Referral Summary ---
Author Author [facility] Medicine Organization [facility] Address Unknown Phone Unavailable Care Team Providers Care Coal Hiker Name Role Phone Agnes Colón Primary Care Physician [phone] Encounter VC Date(s): 11/11/14 - 11/11/14 [facility] [address] [place] [address]- Discharge Diagnosis: Toe pain Discharge Diagnosis: Thumb [...] QID, # 360 mL, 0 Refill(s), Pharmacy: [facility], 3 mL NEB QID Start Date: 03/21/15 Status: Ordered Aspir 81 mg, Oral, Daily, 0 Refill(s) Start Date: 11/09/13 Status: Ordered CeleXA 40 mg oral tablet See Instructions, TAKE 1 TABLET EVERY DAY, # 90 tabs, 2 Refill(s), eRx: [facility], TAKE 1 TABLET EVERY DAY Start Date: 11/28/14 Status: Ordered Coumadin 4 mg oral tablet 4 mg 1 tabs, Oral, Daily, # 90 tabs, 1 Refill(s), Pharmacy: [facility], 1 tabs Oral Daily Start Date: 03/10/15 Status: Ordered Discontinue oxygen therapy Discontinue oxygen therapy, See Instructions, Pt no longer require oxygen therapy. 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 Fax to [facility] [phone], # 1 Each, 0 Refill(s) Start Date: 05/19/15 Status: Ordered DuoNeb 0.5 mg-2.5 mg/3 mL inhalation solution 3 mL, Inhalation, QID, # 60 Each, 0 Refill(s), Pharmacy: [facility] # [id number] Start Date: 03/26/15 Status: Ordered ferrous sulfate 325 mg (65 mg elemental iron) oral tablet 1 tabs, Oral, BID, # 60 tabs, 11 Refill(s), Pharmacy: [facility], 1 tabs Oral BID Start Date: [...] 90 tabs, 2 Refill(s), Pharmacy: [facility], 1/2 tabs Oral Bedtime (once a day) Start Date: 11/29/14 Status: Ordered multivitamin Daily, 0 Refill(s) Start Date: 11/09/13 Status: Ordered Neurontin 300 mg oral capsule 300 mg 1 caps, Oral, BID, # 180 caps, 1 Refill(s), Pharmacy: [facility], 1 caps Oral BID Start Date: 03/10/15 Status: Ordered nitroglycerin 0.4 mg sublingual tablet 0.4 mg 1 tabs, SubLingual, q5min, as needed for chest pain, # 100 tabs, 1 Refill (s), Pharmacy: [facility], 1 tabs [...] Instructions, PT/INR monthly and fax results to [phone] DX: DVT 453.40, # 6 Each, 0 Refill(s) Start Date: 05/31/14 Status: Ordered promethazine-codeine 6.25 mg-10 mg/5 mL oral syrup 5 mL, Oral, q4hr, as needed for cough, # 120 mL, 1 Refill(s) Start Date: 04/15/15 Status: Ordered Protonix 40 mg oral delayed release tablet 40 mg 1 tabs, Oral, BID, # 180 tabs, 1 Refill(s), Pharmacy: [facility], 1 tabs [...] 1 bottles, 3 Refill(s), Pharmacy: [facility], Check 3 [...] 2003 6for herniated disc 7fibrocystic disease 1983 [id number] Social History Social History Type Response Smoking [...] further for a possible cause. Only take vweg-tzo-wzguncf or prescription medicines for pain, discomfort, or [...] 02/27/2014 Document Reviewed: [employer] Patient Information 2014 [facility]. No follow up information was provided. Extracted from: Title: Office Visit Note Author: Chase Colón MD Date: 11/11/14 Assessment/Plan Thumb pain Ordered: Office Visit Level 3 Est 17015 Toe pain Good supportive shoes. Also wear the shoes. Ordered: Office Visit Level 3 Est 18187
--- OUTSIDE RECORDS SUMMARY | 2016-09-26 11:10 | XMS REPORT | Referral Summary ---
Author Author [facility] Organization [facility] Address Unknown Phone Unavailable Care Team Providers Care Filler Feeder Name Role Phone Agnes Colón Primary Care Physician [phone] Encounter Date(s): 05/05/15 - 05/05/15 [facility] [address] [place] [address] Discharge Diagnosis: Hypercholesteremia Discharge Diagnosis: History of DVT of lower extremity Discharge Diagnosis: H/O coronary artery bypass surgery Discharge Diagnosis: Dyspnea Discharge Diagnosis: Coronary heart disease Discharge Diagnosis: Chronic a-fib Discharge Disposition: 01-Home or Self Care Attending Physician: Compa Malik MD Admitting Physician: Compa Malik MD Referring Physician: Chase Colón MD Vital Signs Most recent to 1 oldest [Reference Range]: Peripheral Pulse 72 bpm Rate [60-100 bpm] (05/05/15 11:08 AM) Blood Pressure 132/72 mmHg [90-140/60-90 mmHg] (05/05/15 11:08 AM) Problem List Condition Effective Dates Status [...] 360 mL, 0 Refill(s), Pharmacy: [facility], 3 mL NEB QID Start Date: 03/21/15 Status: Ordered Aspir 81 mg, Oral, Daily, 0 Refill(s) Start Date: 11/09/13 Status: Ordered CeleXA 40 mg oral tablet See Instructions, TAKE 1 TABLET EVERY DAY, # 90 tabs, 2 Refill(s), eRx: [facility], TAKE 1 TABLET EVERY DAY Start Date: 11/28/14 Status: Ordered Coumadin 4 mg oral tablet 4 mg 1 tabs, Oral, Daily, # 90 tabs, 1 Refill(s), Pharmacy: [facility], 1 tabs Oral Daily Start Date: 03/10/15 Status: Ordered DuoNeb 0.5 mg-2.5 mg/3 mL inhalation solution 3 mL, Inhalation, QID, # 60 Each, 0 Refill(s), Pharmacy: [facility] # [id number] Start Date: 03/26/15 Status: Ordered ferrous sulfate 325 mg (65 mg elemental iron) oral tablet 1 tabs, Oral, BID, # 60 tabs, 11 Refill(s), Pharmacy: [facility], 1 tabs Oral BID Start Date: 05/07/14 Status: Ordered GlipiZIDE XL 2.5 mg oral tablet, extended release 2.5 mg, Oral, BID, # 180 tabs, 1 Refill(s), Pharmacy: [facility], 2.5 mg Oral BID Start Date: 03/10/15 Status: Ordered Lasix 20 mg oral tablet See Instructions, TAKE 1 TABLET EVERY DAY, # 90 tabs, eRx: [facility], TAKE 1 TABLET EVERY DAY Start Date: 04/16/15 Status: Ordered Lipitor 40 mg oral tablet 1/2 tabs, Oral, Bedtime (once a day), # 90 tabs, 2 Refill(s), Pharmacy: [facility], 1/2 tabs Oral Bedtime (once a day) Start Date: 11/29/14 Status: Ordered multivitamin Daily, 0 Refill(s) Start Date: 11/09/13 Status: Ordered Neurontin 300 mg oral capsule 300 mg 1 caps, Oral, BID, # 180 caps, 1 Refill(s), Pharmacy: [facility], 1 caps Oral BID Start Date: 03/10/15 Status: Ordered nitroglycerin 0.4 mg sublingual tablet 0.4 mg 1 tabs, SubLingual, q5min, as needed for chest pain, # 100 tabs, 1 Refill (s), Pharmacy: [facility], 1 tabs SubLingual q5min,PRN:as needed for chest pain Start Date: 03/10/15 Status: Ordered pindolol 5 mg oral tablet See Instructions, TAKE 1 TABLET EVERY DAY, # 90 tabs, 1 Refill(s), [facility]: [facility], TAKE 1 TABLET EVERY [...] 1 bottles, 3 Refill(s), Pharmacy: [facility], Check 3 [...] 2003 6for herniated disc 7fibrocystic disease 1983 [id number] Social History Social History Type Response Smoking Status Never smoker Assessment and Plan Extracted from: Title: Office Visit Note Author: Compa Malik MD Date: 05/05/15 Assessment/Plan 1.Coronary heart disease 2.H/O coronary artery bypass surgery 3.Hypercholesteremia 4.Dyspnea 5.History of DVT of lower extremity 6.Chronic a-fib Discussion: I didn't make any changes in her therapy. Her risk for hernia surgery should be acceptable. On the other hand, this lady hassome degree of chronicdysphoria and dissatisfaction. It should not be necessary to do bridgingof her anticoagulation for this procedure.
--- OUTSIDE RECORDS SUMMARY | 2016-09-26 11:10 | XMS REPORT | Referral Summary ---
Author Author [facility], Family Medicine Organization [facility] Address Unknown Phone Unavailable Care Team Providers Care Cuprous Chloride Operator Name Role Phone Agnes Colón Primary Care Physician [phone] Encounter VC Date(s): 06/11/16 - 06/11/16 [facility], [address] [place] [address]- Discharge Diagnosis: Insomnia Discharge Diagnosis: Major depression Discharge Disposition: 01-Home or Self Care Attending Physician: Chase Colón MD Admitting Physician: Chase Colón MD Vital Signs Most recent to 1 oldest [Reference Range]: Blood Pressure 132/68 mmHg [90-140/60-90 mmHg] (06/11/16 2:38 PM) Problem List Condition Effective Dates Status [...] QID, # 360 mL, 0 Refill(s), Pharmacy: [facility], 3 mL NEB QID Start Date: 03/21/15 Status: Ordered Aspir 81 mg, Oral, Daily, 0 Refill(s) Start Date: 11/09/13 Status: Ordered Ativan 0.5 mg oral tablet 0.5 mg 1 tabs, Oral, Bedtime (once a day), # 30 tabs, 0 Refill(s) Start Date: 06/11/16 Status: Ordered atorvastatin 40 mg oral tablet See Instructions, TAKE 1/2 TABLET EVERY DAY AT BEDTIME, # 45 tabs, 2 Refill(s), eRx: [facility], TAKE 1/2 TABLET EVERY DAY AT BEDTIME Start Date: 02/25/16 Status: Ordered calcitriol 0.25 mcg oral capsule 0.25 mcg 1 caps, Oral, BID, # 30 caps, 0 Refill(s) Start Date: 01/05/16 Status: Ordered CeleXA 40 mg oral tablet See Instructions, TAKE 1 TABLET EVERY DAY, # 90 tabs, 2 Refill(s), eRx: [facility], TAKE 1 TABLET EVERY DAY Start Date: 06/13/15 Status: Ordered DuoNeb 0.5 mg-2.5 mg/3 mL inhalation solution 3 mL, Inhalation, QID, # 60 Each, 0 Refill(s), Pharmacy: [facility] # [id number] Start Date: 03/26/15 Status: Ordered ferrous sulfate 325 mg (65 mg elemental iron) oral tablet 1 tabs, Oral, BID, # 60 tabs, 11 Refill(s), [facility], 1 tabs Oral BID Start Date: 05/07/14 Status: Ordered gabapentin 300 mg oral capsule See Instructions, TAKE 1 CAPSULE TWICE DAILY, # 180 caps, 1 Refill(s), eRx: [facility], TAKE 1 CAPSULE TWICE DAILY Start Date: 04/20/16 Status: Ordered Gas-X 160 mg, Chewed, TID, as needed for gas, 0 Refill(s) Start Date: 11/10/15 Status: Ordered glipiZIDE 2.5 mg oral tablet, extended release See Instructions, TAKE 1 TABLET TWICE DAILY, # 180 tabs, 1 Refill(s), eRx: [facility], TAKE 1 TABLET TWICE DAILY Start Date: 04/21/16 Status: Ordered multivitamin Daily, 0 Refill(s) Start Date: 11/09/13 Status: Ordered nitroglycerin 0.4 mg sublingual tablet 0.4 mg 1 tabs, SubLingual, q5min, as needed for chest pain, # 100 tabs, 1 Refill (s), Pharmacy: [facility], 1 tabs SubLingual q5min,PRN:as needed for chest pain Start Date: 05/19/15 Status: Ordered pindolol 5 mg oral tablet 5 mg 1 tabs, Oral, Daily, # 90 tabs, 3 Refill(s), Pharmacy: [facility], 1 tabs Oral Daily Start Date: 01/06/16 Status: Ordered promethazine-codeine 6.25 mg-10 mg/5 mL oral syrup 5 mL, Oral, q4hr, as needed for cough, # 120 mL, 1 Refill(s) Start Date: 04/15/15 Status: Ordered Protonix 40 mg oral delayed release tablet 40 mg 1 tabs, Oral, BID, # 180 tabs, 3 Refill(s), Pharmacy: [facility], 1 tabs Oral BID Start Date: 11/10/15 Status: Ordered Refresh Dry Eye Therapy drops, Eye-Both, QID, 0 Refill(s) Start Date: 11/09/13 Status: Ordered TRUE test blood glucose strips TRUE test blood glucose strips, See Instructions, Check 3 x a day / 3 x a week. Send 1 bottle of 100 strips., # 1 bottles, 3 Refill(s), Pharmacy: [facility], Check 3 x a [...] artery bypass graft Cholecystectomy Lumpectomy8 Tonsillectomy9 Vaginal [id number] 1Robotic-assisted with incorporation of mesh 2Normal, no need to repeat unless symptoms warrant 3H. pylori negative. Marked gastritis. Duodenal diverticulum with adjacent ulcer. Placed on Carafate and PPI. Hold Coumadin. C PCP in 4 weeks 4Shatzkis ring, with dilation, gastric ulcers 5no stents, had blockage, collaterals developed; Dr. Malik 6back surgery 2003 7for herniated disc 8fibrocystic disease 1983 [id number] Social History Social History Type Response Smoking Status Never smoker Assessment and Plan Extracted from: Title: Ambulatory Patient Education Author: Chase Colón MD Date: Behavioral Health Insomnia Insomnia is a sleep disorder that makes it difficult to fall asleep or to stay asleep. Insomnia can cause tiredness (fatigue), low energy, difficulty concentrating, mood swings, and poor performance at work or school. There are three different ways to classify insomnia: Difficulty falling asleep. Difficulty staying asleep. Waking up too early in the morning. Any type of insomnia can be long-term (chronic) or short-term (acute). Both are common. Short-term insomnia usually lasts for three months or less. Chronic insomnia occurs at least three times a week for longer than three months. CAUSES Insomnia may be caused by another condition, situation, or substance, such as: Anxiety. Certain medicines. Gastroesophageal reflux disease (GERD) or other gastrointestinal conditions. Asthma or other breathing conditions. Restless legs syndrome, sleep apnea, or other sleep disorders. Chronic pain. Menopause. This may include hot flashes. Stroke. Abuse of alcohol, tobacco, or illegal drugs. Depression. Caffeine. Neurological disorders, such as Alzheimer disease. An overactive thyroid (hyperthyroidism). The cause of insomnia may not be known. RISK FACTORS Risk factors for insomnia include: Gender. Women are more commonly affected than men. Age. Insomnia is more common as you get older. Stress. This may involve your professional or personal life. Income. Insomnia is more common in people with lower income. Lack of exercise. Irregular work schedule or night shifts. Travelling between different time zones. SIGNS AND SYMPTOMS If you have insomnia, trouble falling asleep or trouble staying asleep is the main symptom. This may lead to other symptoms, such as: Feeling fatigued. Feeling nervous about going to sleep. Not feeling rested in the morning. Having trouble concentrating. Feeling irritable, anxious, or depressed. TREATMENT Treatment for insomnia depends on the cause. If your insomnia is caused by an underlying condition, treatment will focus on addressing the condition. Treatment may also include: Medicines to help you sleep. Counseling or therapy. Lifestyle adjustments. HOME CARE INSTRUCTIONS Take medicines only as directed by your health care provider. Keep regular sleeping and waking hours. Avoid naps. Keep a sleep diary to help you and your health care provider figure out what could be causing your insomnia. Include: When you sleep. When you wake up during the night. How well you sleep. How rested you feel the next day. Any side effects of medicines you are taking. What you eat and drink. Make your bedroom a comfortable place where it is easy to fall asleep: Put up shades or special blackout curtains to block light from outside. Use a white noise machine to block noise. Keep the temperature cool. Exercise regularly as directed by your health care provider. Avoid exercising right before bedtime. Use relaxation techniques to manage stress. Ask your health care provider to suggest some techniques that may work well for you. These may include: Breathing exercises. Routines to release muscle tension. Visualizing peaceful scenes. Cut back on alcohol, caffeinated beverages, and cigarettes, especially close to bedtime. These can disrupt your sleep. Do not overeat or eat spicy foods right before bedtime. This can lead to digestive discomfort that can make it hard for you to sleep. Limit screen use before bedtime. This includes: Watching TV. Using your smartphone, tablet, and computer. Stick to a routine. This can help you fall asleep faster. Try to do a quiet activity, brush your teeth, and go to bed at the same time each night. Get out of bed if you are still awake after 15 minutes of trying to sleep. Keep the lights down, but try reading or doing a quiet activity. When you feel sleepy, go back to bed. Make sure that you drive carefully. Avoid driving if you feel very sleepy. Keep all follow-up appointments as directed by your health care provider. This is important. SEEK MEDICAL CARE IF: You are tired throughout the day or have trouble in your daily routine due to sleepiness. You continue to have sleep problems or your sleep problems get worse. SEEK IMMEDIATE MEDICAL CARE IF: You have serious thoughts about hurting yourself or someone else. This information is not intended to replace advice given to you by your health care provider. Make sure you discuss any questions you have with your health care provider. Document Released: 05/06/2001 Document Revised: 05/30/2015 Document Reviewed: [facility] Interactive Patient Education 2016 [employer] [facility] [facility] [employer] Family Medicine Depression, Adult Depression is feeling sad, low, down in the dumps, blue, gloomy, or empty. In general, there are two kinds of depression: Normal sadness or grief. This can happen after something upsetting. It often goes away on its own within 2 weeks. After losing a loved one (bereavement ), normal sadness and grief may last longer than two weeks. It usually gets better with time. Clinical depression. This kind lasts longer than normal sadness or grief. It keeps you from doing the things you normally do in life. It is often hard to function at home, work, or at school. It may affect your relationships with others. Treatment is often needed. GET HELP RIGHT AWAY IF: You have thoughts about hurting yourself or others. You lose touch with reality (psychotic symptoms). You may: See or hear things that are not real. Have untrue beliefs about your life or people around you. Your medicine is giving you problems. MAKE SURE YOU: Understand these instructions. Will watch your condition. Will get help right away if you are not doing well or get worse. This information is not intended to replace advice given to you by your health care provider. Make sure you discuss any questions you have with your health care provider. Document Released: 06/11/2011 Document Revised: 05/30/2015 Document Reviewed: [facility] Interactive Patient Education 2016 [employer] [employer] No follow up information was provided. Extracted from: Title: Office Visit Note Author: Chase Colón MD Date: 06/11/16 Assessment/Plan 1.Major depression Continue with the current medications. Ordered: Office Visit Level 2 Est 76511 2.Insomnia Ativan 0.5mg at hs and may repeat x 1. Follow up in 1 month. Ordered: Office Visit Level 2 Est 93886 Addendum by For the abdominal discomfort and bloating I suggested to take a Probiotic and follow up [place], if no better. Chase Alarcon MD on June 11, 2016 15:33:49 GRADER MARKER
--- OUTSIDE RECORDS SUMMARY | 2016-09-26 11:10 | XMS REPORT | Referral Summary ---
Author Author [facility] Organization [facility] Address Unknown Phone Unavailable Care Team Providers Care Cosmetic Account Coordinator Name Role Phone Agnes Colón Primary Care Physician [phone] Encounter VC Date(s): 03/17/15 - 03/17/15 [facility] [address] [place] [address] Discharge Disposition: 01-Home or Self Care Attending [...] QID, # 360 mL, 0 Refill(s), Pharmacy: [facility], 3 mL NEB QID Start Date: 03/21/15 Status: Ordered Aspir 81 mg, Oral, Daily, 0 Refill(s) Start Date: 11/09/13 Status: Ordered CeleXA 40 mg oral tablet See Instructions, TAKE 1 TABLET EVERY DAY, # 90 tabs, 2 Refill(s), eRx: [facility], TAKE 1 TABLET EVERY DAY Start Date: 06/13/15 Status: Ordered Coumadin 4 mg oral tablet See Instructions, TAKE 1 TABLET EVERY DAY, # 90 tabs, 1 Refill(s), eRx: [facility], TAKE 1 TABLET EVERY DAY Start Date: 07/23/15 Status: Ordered Discontinue oxygen therapy Discontinue oxygen therapy, See Instructions, Pt no longer require oxygen therapy. Please discontinue orders and picker operator equipment. Fax to [facility] [phone], # 1 Each, 0 Refill(s) Start Date: 05/19/15 Status: Ordered DuoNeb 0.5 mg-2.5 mg/3 mL inhalation solution 3 mL, Inhalation, QID, # 60 Each, 0 Refill(s), Pharmacy: [facility] # [id number] Start Date: 03/26/15 Status: Ordered ferrous sulfate 325 mg (65 mg elemental iron) oral tablet 1 tabs, Oral, BID, # 60 tabs, 11 Refill(s), [facility], 1 tabs Oral BID Start Date: 05/07/14 Status: Ordered GlipiZIDE XL 2.5 mg oral tablet, extended release 2.5 mg, Oral, BID, # 180 tabs, 1 Refill(s), Pharmacy: [facility], 2.5 mg Oral BID Start Date: 03/10/15 Status: Ordered Lasix 20 mg oral tablet See Instructions, TAKE 1 TABLET EVERY DAY, # 90 tabs, eRx: [facility], TAKE 1 TABLET EVERY DAY Start Date: 08/15/15 Status: Ordered Lipitor 40 mg oral tablet 1/2 tabs, Oral, Bedtime (once a day), # 90 tabs, 2 Refill(s), Pharmacy: [facility], 1/2 tabs Oral Bedtime (once a day) Start Date: 11/29/14 Status: Ordered multivitamin Daily, 0 Refill(s) Start Date: 11/09/13 Status: Ordered Neurontin 300 mg oral capsule See Instructions, TAKE 1 CAPSULE TWICE DAILY, # 180 caps, 1 Refill(s), eRx: [facility], TAKE 1 CAPSULE TWICE DAILY Start Date: 06/03/15 Status: Ordered nitroglycerin 0.4 mg sublingual tablet 0.4 mg 1 tabs, SubLingual, q5min, as needed for chest pain, # 100 tabs, 1 Refill (s), Pharmacy: [facility], 1 tabs SubLingual q5min,PRN:as needed for chest pain Start Date: 05/19/15 Status: Ordered pindolol 5 mg oral tablet See Instructions, TAKE ONE TABLET BY MOUTH DAILY, # 90 tabs, eRx: [facility] #[id number], TAKE ONE TABLET BY MOUTH DAILY Start [...] BID, # 180 tabs, 1 Refill(s), Pharmacy: [facility], 1 tabs Oral BID Start Date: 05/19/15 Status: Ordered Refresh Dry Eye Therapy drops, Eye-Both, QID, 0 Refill(s) Start Date: 11/09/13 Status: Ordered TRUE test blood glucose strips TRUE test blood glucose strips, See Instructions, Check 3 x a day / 3 x a week. Send 1 bottle of 100 strips., # 1 bottles, 3 Refill(s), Pharmacy: [facility], Check 3 x a [...] 2009 S/P cardiac catheterization5 2002 S/P colonoscopy 1989 tailbone removed 1989 L ulnar transposition 1986 S/p breast biopsy, cyst 1983 D&C - Dilatation and curettage 1978 S/P carpal tunnel release 1978 L ear drum 1974 Back pain6, 7 CABG - Coronary artery bypass graft Cholecystectomy Lumpectomy8 Tonsillectomy9 Vaginal toiuikyfkdls21 1Robotic-assisted with incorporation of mesh 2Normal, no need to repeat unless symptoms warrant 3H. pylori negative. Marked gastritis. Duodenal diverticulum with adjacent ulcer. Placed on Carafate and PPI. Hold Coumadin. C PCP in 4 weeks 4Shatzkis ring, with dilation, gastric ulcers 5no stents, had blockage, collaterals developed; Dr. Malik 6back surgery 2003 7for herniated disc 8fibrocystic disease 1983 [id number] Social History Social History Type Response Smoking Status Never smoker Assessment and Plan Extracted from: Title: Ambulatory Patient Education Author: Chase Colón MD Date: Allergy Cough, Adult A cough is a [...] chronic cough. HOME CARE INSTRUCTIONS Only take [id number] or prescription medicines for pain, discomfort, or [...] 07/31/2012 Document Reviewed: [employer] Patient Information 2015 [employer] This information is not intended to replace advice given to you by your health care provider. Make sure you discuss any questions you have with your health care provider. No follow up information was provided. Extracted from: Title: Office Visit Note Author: Chase Colón MD Date: 03/18/15 Assessment/Plan Cough Will Rx for Z-pack and Tussinex and will follow. Suggest using the nebulizer since the one we tried here worked or helped. Ordered: Office Visit Level 3 Est 57137 Orders: azithromycin, 1 packets, Oral, Daily, as directed on package labeling , X 5 days, # 6 tabs, 0 Refill(s) HYDROcodone-chlorpheniramine, 5 mL, Oral, q12hr, as needed for cough, # 120 mL , 0 Refill(s)
--- OUTSIDE RECORDS SUMMARY | 2016-09-26 11:11 | XMS REPORT | Referral Summary ---
Author Author [facility], Family Medicine Organization [facility] Address Unknown Phone Unavailable Care Team Providers Care Senior Maintenance Technician Name Role Phone Agnes Colón Primary Care Physician [phone] Encounter VC Date(s): 01/07/15 - 01/07/15 [facility], [address] [place] [address] Discharge Diagnosis: NEOPLASM OF UNCERTAIN BEHAVIOR OF SKIN Discharge Disposition: 01-Home or Self Care Attending Physician: Chase Colón MD Admitting Physician: Chase Colón MD Vital Signs Most recent to 1 oldest [Reference Range]: Temperature Tympanic 37.3 degC [36.6-38.1 degC] (01/07/15 7:55 AM) Peripheral Pulse 80 bpm Rate [60-100 bpm] (01/07/15 7:55 AM) Respiratory Rate 20 br/min [14-20 br/min] (01/07/15 7:55 AM) Blood Pressure 136/76 mmHg [90-140/60-90 mmHg] (01/07/15 7:55 AM) Problem List Condition Effective Dates Status [...] QID, # 360 mL, 0 Refill(s), Pharmacy: [facility], 3 mL NEB QID Start Date: 03/21/15 Status: Ordered Aspir 81 mg, Oral, Daily, 0 Refill(s) Start Date: 11/09/13 Status: Ordered CeleXA 40 mg oral tablet See Instructions, TAKE 1 TABLET EVERY DAY, # 90 tabs, 2 Refill(s), eRx: [facility], TAKE 1 TABLET EVERY DAY Start Date: 06/13/15 Status: Ordered Coumadin 4 mg oral tablet 4 mg 1 tabs, Oral, Daily, # 90 tabs, 1 Refill(s), Pharmacy: [facility], 1 tabs Oral Daily Start Date: 03/10/15 Status: Ordered Discontinue oxygen therapy Discontinue oxygen therapy, See Instructions, Pt no longer require oxygen therapy. Please discontinue orders and lemon picker equipment. Fax to [facility] [phone], # 1 Each, 0 Refill(s) Start Date: 05/19/15 Status: Ordered DuoNeb 0.5 mg-2.5 mg/3 mL inhalation solution 3 mL, Inhalation, QID, # 60 Each, 0 Refill(s), Pharmacy: [facility] # [id number] Start Date: 03/26/15 Status: Ordered ferrous sulfate 325 mg (65 mg elemental iron) oral tablet 1 tabs, Oral, BID, # 60 tabs, 11 Refill(s), [facility], 1 tabs Oral BID Start Date: 05/07/14 Status: Ordered GlipiZIDE XL 2.5 mg oral tablet, extended release 2.5 mg, Oral, BID, # 180 tabs, 1 Refill(s), Pharmacy: [facility], 2.5 mg Oral BID Start Date: 03/10/15 Status: Ordered Lasix 20 mg oral tablet See Instructions, TAKE 1 TABLET EVERY DAY, # 90 tabs, eRx: [facility], TAKE 1 TABLET EVERY DAY Start Date: 06/17/15 Status: Ordered Lipitor 40 mg oral tablet 1/2 tabs, Oral, Bedtime (once a day), # 90 tabs, 2 Refill(s), Pharmacy: [facility], 1/2 tabs Oral Bedtime (once a day) Start Date: 11/29/14 Status: Ordered multivitamin Daily, 0 Refill(s) Start Date: 11/09/13 Status: Ordered Neurontin 300 mg oral capsule See Instructions, TAKE 1 CAPSULE TWICE DAILY, # 180 caps, 1 Refill(s), eRx: [facility], TAKE 1 CAPSULE TWICE DAILY Start Date: 06/03/15 Status: Ordered nitroglycerin 0.4 mg sublingual tablet 0.4 mg 1 tabs, SubLingual, q5min, as needed for chest pain, # 100 tabs, 1 Refill (s), Pharmacy: [facility], 1 tabs SubLingual q5min,PRN:as needed for chest pain Start Date: 05/19/15 Status: Ordered pindolol 5 mg oral tablet See Instructions, TAKE 1 TABLET EVERY DAY, # 90 tabs, 0 Refill(s), Pharmacy: [facility] #[id number], TAKE 1 TABLET EVERY DAY Start Date: [...] BID, # 180 tabs, 1 Refill(s), Pharmacy: [facility], 1 tabs Oral [...] strips., # 1 bottles, 3 Refill(s), Pharmacy: [facility], Check 3 [...] artery bypass graft Cholecystectomy Lumpectomy8 Tonsillectomy9 Vaginal [id number] 1Robotic-assisted with incorporation of mesh 2Normal, no need to repeat unless symptoms warrant 3H. pylori negative. Marked gastritis. Duodenal diverticulum with adjacent ulcer. Placed on Carafate and PPI. Hold Coumadin. C PCP in 4 weeks 4Shatzkis ring, with dilation, gastric ulcers 5no stents, had blockage, collaterals developed; Dr. Malik 6back surgery 2004 7for herniated disc 8fibrocystic disease 1983 [id number] Social History Social History Type Response Smoking Status Never smoker Assessment and Plan Extracted from: Title: Ambulatory Patient Education Author: Chase Colón MD Date: Family Medicine Acne Acne is a skin problem that causes pimples. Acne occurs when the pores in your skin get blocked. Your pores may become red, sore, and swollen (inflamed), or infected with a common skin bacterium (Propionibacterium acnes). Acne is a common skin problem. Up to 80% of people get acne at some time. Acne is especially common from the ages of 12 to 24. Acne usually goes away over time with proper treatment. CAUSES Your pores each contain an oil gland. The oil glands make an oily substance called sebum. Acne happens when these glands get plugged with sebum, skin cells, and dirt. The P. acnes bacteria that are normally found in the oil glands then multiply, causing inflammation. Acne is commonly triggered by changes in your hormones. These hormonal changes can cause the oil glands to get bigger and to make more sebum. Factors that can make acne worse include: Hormone changes during adolescence. Hormone changes during women's menstrual cycles. Hormone changes during . Oil-based cosmetics and hair products. Harshly scrubbing the skin. Strong soaps. Stress. Hormone problems due to certain diseases. Long or oily hair rubbing against the skin. Certain medicines. Pressure from headbands, backpacks, or shoulder pads. Exposure to certain oils and chemicals. SYMPTOMS Acne often occurs on the face, neck, chest, and upper back. Symptoms include: Small, red bumps (pimples or papules). Whiteheads (closed comedones). Blackheads (open comedones). Small, pus-filled pimples (pustules). Big, red pimples or pustules that feel tender. More severe acne can cause: An infected area that contains a collection of pus (abscess). Hard, painful, fluid-filled sacs (cysts). Scars. DIAGNOSIS Your caregiver can usually tell what the problem is by doing a physical exam. TREATMENT There are many good treatments for acne. Some are available konx-nuw-taagael and some are available with a prescription. The treatment that is best for you depends on the type of acne you have and how severe it is. It may take 2 months of treatment before your acne gets better. Common treatments include: Creams and lotions that prevent oil glands from clogging. Creams and lotions that treat or prevent infections and inflammation. Antibiotics applied to the skin or taken as a pill. Pills that decrease sebum production. control pills. Light or laser treatments. Minor surgery. Injections of medicine into the affected areas. Chemicals that cause peeling of the skin. HOME CARE INSTRUCTIONS Good skin care is the most important part of treatment. Wash your skin gently at least twice a day and after exercise. Always wash your skin before bed. Use mild soap. After each wash, apply a water-based skin moisturizer. Keep your hair clean and off of your face. Shampoo your hair daily. Only take medicines as directed by your caregiver. Use a sunscreen or sunblock with SPF 30 or greater. This is especially important when you are using acne medicines. Choose cosmetics that are noncomedogenic. This means they do not plug the oil glands. Avoid leaning your chin or forehead on your hands. Avoid wearing tight headbands or hats. Avoid picking or squeezing your pimples. This can make your acne worse and cause scarring. SEEK MEDICAL CARE IF: Your acne is not better after 8 weeks. Your acne gets worse. You have a large area of skin that is red or tender. Document Released: 05/06/2001 Document Revised: 07/31/2012 Document Reviewed: Exit[employer] Patient Information 2015 [place]. This information is not intended to replace advice given to you by your health care provider. Make sure you discuss any questions you have with your health care provider. No follow up information was provided. Extracted from: Title: Office Visit Note Author: Chase Colón MD Date: 01/07/15 Assessment/Plan Accessory skin tags Keep the wound clean and dry and may use Neosporin. Follow up as needed. Ordered: Office Visit Level 3 Est 68533 Acne comedone Ordered: Office Visit Level 3 Est 92963 NEOPLASM OF UNCERTAIN BEHAVIOR OF SKIN Ordered: Office Visit Level 3 Est 75928
--- OUTSIDE RECORDS SUMMARY | 2016-09-26 11:11 | XMS REPORT | Continuity of Care Document ---
Author Author Pola VEGA, [facility] Address Unknown Phone Unavailable Care Team Providers Care Non Emergency Services Ambulance Driver Name Role Phone Chase Colón PP Unavailable Payers Payer name Insurance type Covered constitution party ID Authorization(s) Unknown Problems Condition Effective Dates (start - stop) Clinical Status Atrial Fibrillation - *Acute Diabetes Mellitus Type 2, Uncomplicated - *Controlled Hypertension, Benign - *Controlled S/P CABG - *Stable Wheezing - *Acute DVT (deep venous thrombosis) - *Acute Diabetes Mellitus Type 2, Uncomplicated - *Fair Control Edema - *Chronic Depression - *Stable Hypertension, Unspecified - *Controlled Cardiomegaly - *Chronic Pulmonary hypertension - *Fair Control Chronic kidney disease, unspecified - *Controlled Pulmonary Hypertension, Secondary - *Chronic SOB (shortness of breath) - *Acute Edema extremities - *Acute Atrial Fibrillation - Atrial Fibrillation - *Chronic Diabetes Mellitus Type 2, Uncomplicated - *Chronic CAD, Unspecified - *Chronic Pulmonary Embolus, History of - *Chronic Other and unspecified hyperlipidemia - *Chronic Chronic kidney disease (CKD) stage G3a/A2, moderat - *Chronic Diabetes Mellitus Type 2, Uncomplicated - *Fair Control Hypertension, Unspecified - *Chronic Atrial Fibrillation - *Stable Other and unspecified hyperlipidemia - *Fair Control Encounter for therapeutic drug monitoring - *Routine CAD, Unspecified - *Stable Atrial Fibrillation - *Stable Chronic kidney disease, unspecified - *Stable Diabetes Mellitus Type 2, Uncomplicated - *Controlled Hypertension, Benign - *Controlled Asthma - *Chronic Left Ventricular Hypertrophy - *Stable Diabetes Mellitus Type 2, Uncomplicated - *Controlled Pulmonary Hypertension, Secondary - *Controlled Other and unspecified hyperlipidemia - *Controlled RESTLESS LEGS SYNDROME - *Chronic Anxiety - *Controlled Encounter for other specified aftercare - *Chronic Vaccin for singl dis - *Acute Other screening breast examination - *Acute CAD, Unspecified - *Stable Chest Tightness - Mild Edema - *Chronic Hypertension, Benign - *Controlled Other and unspecified hyperlipidemia - *Chronic Chronic kidney disease, unspecified - *Stable History of DVT of lower extremity - *Controlled S/P CABG - *Stable SEC DM OTH NT ST UNCONTR - *Controlled Edema - *Controlled DVT (deep venous thrombosis) - *Controlled Diabetes Mellitus Type 2, Uncomplicated - *Controlled Edema - *Controlled Shortness of Breath - *Controlled Edema - *Chronic Diabetes Mellitus Type 2, Uncomplicated - *Chronic 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 - *Chronic Anxiety - *Chronic Diabetes with neurological manifestations, type I [juvenile type], not stated as uncontrolled - *Acute Pain in joint involving shoulder region - *Acute Diabetes due to underlying condition w oth complic - *Controlled Depression (emotion) - *Routine Hypertension - *Stable Hyperlipidemia LDL goal < 100 - *Controlled Fatigue - *Chronic Pain in joint involving lower leg - *Chronic 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 - *Chronic Hypertension, Unspecified - *Chronic RLS (restless legs syndrome) - *Chronic Diabetes Mellitus Type 2, Uncomplicated - *Controlled Family History Family Member Diagnosis Age At Onset Status Father (Unknown) Emphysema Yes Mother (Unknown) Congenital heart disease Yes Father (Unknown) CVA (Stroke) Yes Mother (Unknown) Diabetes Yes Social History Social History Element Description Quantity Unknown Allergies, Adverse Reactions, Alerts Substance Reaction Severity Status RED DYE Unknown Medications Medication Instructions Dosage Effective Dates (start - stop) Status albuterol sulfate 1.25 mg/3 mL Neb Solution inhale 6 milliliter (2.5MG) by inhalation route 3- 4 times every day via nebulizer 2.5 MG - Active use as directed as per physician - Active Blood Glucose Test Strips 4x a day 3 days a week 250.00 - Active multivitamin tablet take 1 by Oral route every day 0 - Active aspirin 81 mg chewable tablet chew 1 tablet (81MG) by oral route every day 81 MG - Active Lipitor 40 mg tablet 1/2 TABLET HS - Active pindolol 5 mg tablet Take 1 tablet by mouth every day. - Active Pepcid 20 mg tablet take 1 tablet (20MG) by oral route 2 times every day 20 MG - Active Maxzide-25mg 37.5 mg-25 mg tablet take 1 tablet by oral route every day 0 - Active Coumadin 2 mg tablet 4mg daily - Active digoxin 125 mcg tablet take 1 tablet (125MCG) by oral route every 2 days 125 MCG - Active glipizide ER 2.5 mg tablet, extended release 24 hr Take 1 tablet by mouth twice a day. - Active nitroglycerin 0.4 mg sublingual tablet NEEDED FOR CHEST PAIN 2012 - Active Neurontin 300 mg capsule take 1 Tablet by Oral route 2 times every day 0 Mar - Active Acetaminophen PM 25 mg-500 mg tablet take 2 tablet by oral route every day at bedtime 0 - Active Refresh Tears 0.5 % Eye Drops 3 times daily to both eyes - Active digoxin 125 mcg tablet take 1 tablet (125MCG) by oral route every day 125 MCG - Active Celexa 40 mg tablet take 1 tablet (40MG) by oral route every day 40 MG Apr - Active Comp-Air Elite Comp Neb System Device DX 493.90 to be used daily for breathing treatments. - Active Pt to have Lab Drawn every month. Results to be faxed to Dr. Colón. at . DX 453.40 - Active Immunizations Vaccine Date Status Comments Flu (split) (3 yrs or older) completed pneumo (2 yrs or older) (PPV23) completed - Completed reason: source unspecified Tetanus Toxoid completed - Completed reason: source unspecified Results Test Name Date and Time Measure Units Reference Range Abnormal Flag Comments Panel Description: Brain Natriuretic Peptide B-Type Natriuretic Peptide 09:13:00 238 pg/mL 0-99 H Testing performed at [facility] Reference Lab [address] [address] Learning Strategist Luis Adair MD Panel Description: Digoxin-[facility] Digoxin 09:13:00 <0.3 ng/mL 0.8-2.0 L Testing performed at [facility] Reference Lab [address] [id number] Learning Strategist Luis Adair MD Vital Signs Date / Time: Height Weight Pulse Rate Blood Pressure Temperature /08:05:00 64.00 in 187.00 lbs 130/70 mm[Hg] 97.4 F Procedures Procedure Date Unknown Encounters Encounter Location Date Patient Visit [facility] Patient Visit Conversion Patient Visit Patient Visit [facility] Patient Visit [facility] Patient Visit [facility] Patient Visit [facility] Patient Visit [facility] Patient Visit [facility] Patient Visit [facility] Patient Visit [facility] Patient Visit [facility] Patient Visit [facility] Patient Visit [facility] Patient Visit [facility] Patient Visit [facility] Patient Visit [facility] Patient Visit [facility] Patient Visit [facility] Patient Visit [facility] Patient Visit [facility] Patient Visit [facility] Advance Directives Directive Effective Date Unknown
--- OUTSIDE RECORDS SUMMARY | 2016-09-26 11:11 | XMS REPORT | Referral Summary ---
Author Author [facility], Cardiology Organization [facility] Address Unknown Phone Unavailable Care Team Providers Care Laser Systems Engineer Name Role Phone Agnes Colón Primary Care Physician [phone] Encounter Date(s): 10/03/14 - 10/03/14 [facility], [facility] [address] [place] [address] Discharge Diagnosis: Dyspnea Discharge Diagnosis: [...] QID, # 360 mL, 0 Refill(s), Pharmacy: [facility], 3 mL NEB QID Start Date: 03/21/15 Status: Ordered Aspir 81 mg, Oral, Daily, 0 Refill(s) Start Date: 11/09/13 Status: Ordered CeleXA 40 mg oral tablet See Instructions, TAKE 1 TABLET EVERY DAY, # 90 tabs, 2 Refill(s), eRx: [facility], TAKE 1 TABLET EVERY DAY Start Date: 11/28/14 Status: Ordered Coumadin 4 mg oral tablet 4 mg 1 tabs, Oral, Daily, # 90 tabs, 1 Refill(s), Pharmacy: [facility], 1 tabs Oral Daily Start Date: 03/10/15 Status: Ordered DuoNeb 0.5 mg-2.5 mg/3 mL inhalation solution 3 mL, Inhalation, QID, # 60 Each, 0 Refill(s), Pharmacy: [facility] # [id number] Start Date: 03/26/15 Status: Ordered ferrous sulfate 325 mg (65 mg elemental iron) oral tablet 1 tabs, Oral, BID, # 60 tabs, 11 Refill(s), [facility], 1 tabs Oral BID Start Date: 05/07/14 Status: Ordered GlipiZIDE XL 2.5 mg oral tablet, extended release 2.5 mg, Oral, BID, # 180 tabs, 1 Refill(s), Pharmacy: [facility], 2.5 mg Oral BID Start Date: 03/10/15 Status: Ordered Lasix 20 mg oral tablet See Instructions, TAKE 1 TABLET EVERY DAY, # 90 tabs, 1 Refill(s), eRx: [facility], TAKE 1 TABLET EVERY DAY Start Date: 09/09/14 Status: Ordered Lipitor 40 mg oral tablet 1/2 tabs, Oral, Bedtime (once a day), # 90 tabs, 2 Refill(s), Pharmacy: [facility], 1/2 tabs Oral Bedtime (once a day) Start Date: 11/29/14 Status: Ordered multivitamin Daily, 0 Refill(s) Start Date: 11/09/13 Status: Ordered Neurontin 300 mg oral capsule 300 mg 1 caps, Oral, BID, # 180 caps, 1 Refill(s), Pharmacy: [facility], 1 caps Oral BID Start Date: 03/10/15 Status: Ordered nitroglycerin 0.4 mg sublingual tablet 0.4 mg 1 tabs, SubLingual, q5min, as needed for chest pain, # 100 tabs, 1 Refill (s), Pharmacy: [facility], 1 tabs SubLingual [...] BID, # 60 tabs, 11 Refill(s), Pharmacy: [facility], 1 tabs Oral BID Start Date: 05/07/14 Status: Ordered Refresh Dry Eye Therapy drops, Eye-Both, QID, 0 Refill(s) Start Date: 11/09/13 Status: Ordered TRUE test blood glucose strips TRUE test blood glucose strips, See Instructions, Check 3 x a day / 3 x a week. Send 1 bottle of 100 strips., # 1 bottles, 3 Refill(s), Pharmacy: [facility], Check 3 x [...] 2003 6for herniated disc 7fibrocystic disease 1983 [id number] Social History Social History Type Response Smoking Status Never smoker Assessment and Plan Extracted from: Title: Office Visit Note Author: Compa Malik MD Date: 10/03/14 Assessment/Plan 1.Dyspnea Ordered: Echo, 2-D + Doppler + Color Flow EKG with Interpretation [id number] Return to Clinic 2.Dry mouth Ordered: Echo, 2-D + Doppler + Color Flow EKG with Interpretation [id number] Return to Clinic 3.Ecchymosis Ordered: Echo, 2-D + Doppler + Color Flow EKG with Interpretation [id number] Return to Clinic 4.Atrial fibrillation Ordered: Echo, 2-D + Doppler + Color Flow EKG with Interpretation [id number] Return to Clinic 5.Chronic anticoagulation Ordered: Echo, 2-D + Doppler + Color Flow EKG with Interpretation [id number] Return to Clinic 6.Coronary heart disease Discussion [...] Doppler + Color Flow EKG with Interpretation [id number] Return to Clinic Referrals to Other Providers Referred by: Compa Malik MD
--- OUTSIDE RECORDS SUMMARY | 2016-09-26 11:11 | XMS REPORT | Referral Summary ---
Author Author [facility] Organization [facility] Address Unknown Phone Unavailable Care Team Providers Care Driver [employer] Name Role Phone Eldon Agnes Primary Care Physician [phone] Encounter Date(s): 05/06/15 - 05/06/15 [facility] [address] [place] [address] [place] [address]- Discharge Diagnosis: Ventral hernia Discharge Disposition: 01-Home or Self Care Attending Physician: Remi Connors MD Admitting Physician: Remi Connors MD Vital Signs Most recent to 1 oldest [Reference Range]: Temperature Tympanic 37.1 degC [36.6-38.1 degC] (05/06/15 1:54 PM) Blood Pressure 118/72 mmHg [90-140/60-90 mmHg] (05/06/15 1:54 PM) Problem List Condition Effective Dates Status [...] QID, # 360 mL, 0 Refill(s), Pharmacy: [facility], 3 mL NEB QID Start Date: 03/21/15 Status: Ordered Aspir 81 mg, Oral, Daily, 0 Refill(s) Start Date: 11/09/13 Status: Ordered CeleXA 40 mg oral tablet See Instructions, TAKE 1 TABLET EVERY DAY, # 90 tabs, 2 Refill(s), eRx: [facility], TAKE 1 TABLET EVERY DAY Start Date: 11/28/14 Status: Ordered Coumadin 4 mg oral tablet 4 mg 1 tabs, Oral, Daily, # 90 tabs, 1 Refill(s), Pharmacy: [facility], 1 tabs Oral Daily Start Date: 03/10/15 Status: Ordered DuoNeb 0.5 mg-2.5 mg/3 mL inhalation solution 3 mL, Inhalation, QID, # 60 Each, 0 Refill(s), Pharmacy: [facility] # [id number] Start Date: 03/26/15 Status: Ordered ferrous sulfate 325 mg (65 mg elemental iron) oral tablet 1 tabs, Oral, BID, # 60 tabs, 11 Refill(s), Pharmacy: [facility], 1 tabs Oral BID Start Date: 05/07/14 Status: Ordered GlipiZIDE XL 2.5 mg oral tablet, extended release 2.5 mg, Oral, BID, # 180 tabs, 1 Refill(s), Pharmacy: [facility], 2.5 mg Oral BID Start Date: 03/10/15 Status: Ordered Lasix 20 mg oral tablet See Instructions, TAKE 1 TABLET EVERY DAY, # 90 tabs, eRx: [facility], TAKE 1 TABLET EVERY DAY Start Date: 04/16/15 Status: Ordered Lipitor 40 mg oral tablet 1/2 tabs, Oral, Bedtime (once a day), # 90 tabs, 2 Refill(s), Pharmacy: [facility], 1/2 tabs Oral Bedtime (once a day) Start Date: 11/29/14 Status: Ordered multivitamin Daily, 0 Refill(s) Start Date: 11/09/13 Status: Ordered Neurontin 300 mg oral capsule 300 mg 1 caps, Oral, BID, # 180 caps, 1 Refill(s), Pharmacy: [facility], 1 caps Oral BID Start Date: 03/10/15 Status: Ordered nitroglycerin 0.4 mg sublingual tablet 0.4 mg 1 tabs, SubLingual, q5min, as needed for chest pain, # 100 tabs, 1 Refill (s), Pharmacy: [facility], 1 tabs [...] Instructions, PT/INR monthly and fax results to [phone] DX: DVT 453.40, # 6 Each, 0 [...] strips., # 1 bottles, 3 Refill(s), Pharmacy: [facility], Check 3 x a day / 3 x a week. Send 1 bottle of 100 strips. Start Date: 01/22/15 Status: Ordered Vitamin D3 2000 intl units oral tablet Intl_Units tabs, Oral, Daily, 0 Refill(s) Start Date: 12/24/14 Status: Ordered Results Hematology Most recent to 1 oldest [Reference Range]: WBC [4.8-10.8 7.8 10*3/uL 10*3/uL] (05/06/15 2:55 PM) RBC [4.00-5.20] 4.14 (05/06/15 2:55 PM) Hgb [12.0-16.0 12.4 gm/dL gm/dL] (05/06/15 2:55 PM) Hct [37.0-47.0 %] 38.1 % (05/06/15 2:55 PM) MCV [82.0-99.0 fL] 92.0 fL (05/06/15 2:55 PM) MCH [27.0-32.0 pg] 30.0 pg (05/06/15 2:55 PM) MCHC [32.0-36.0 32.5 gm/dL gm/dL] (05/06/15 2:55 PM) RDW [11.5-14.5 %] 14.7 % *HI* (05/06/15 2:55 PM) Platelet [150-400 271 10*3/uL 10*3/uL] (05/06/15 2:55 PM) MPV [8.8-14.8 fL] 11.3 fL (05/06/15 2:55 PM) Immature 0.4 % Granulocytes (05/06/15 2:55 PM) [0.0-1.0 %] Neutrophils [51-75 65 % %] (05/06/15 2:55 PM) Lymphocytes [20-46 23 % %] (05/06/15 2:55 PM) Monocytes [4-11 %] 8 % (05/06/15 2:55 PM) Eosinophils [0-4 %] 3 % (05/06/15 2:55 PM) Basophils [0-2 %] 1 % (05/06/15 2:55 PM) Neutro Absolute 5.07 10*3 [1.90-7.00 10*3] (05/06/15 2:55 PM) Lymph Absolute 1.83 10*3 [0.80-3.30 10*3] (05/06/15 2:55 PM) [place] Absolute 0.66 10*3 [0.30-1.00 10*3] (05/06/15 2:55 PM) Eos Absolute 0.21 10*3 [0.00-0.50 10*3] (05/06/15 2:55 PM) Baso Absolute 0.05 10*3 [0.00-0.20 10*3] (05/06/15 2:55 PM) Chemistry Most recent to 1 oldest [Reference Range]: Sodium Lvl [135-144 144 mEq/L mEq/L] (05/06/15 2:55 PM) Potassium Lvl 3.4 mEq/L [3.5-5.2 mEq/L] *LOW* (05/06/15 2:55 PM) Chloride [99-111 109 mEq/L mEq/L] (05/06/15 2:55 PM) CO2 [22-31 mEq/L] 24 mEq/L (05/06/15 2:55 PM) AGAP [3-20] 11 (05/06/15 2:55 PM) BUN [10-20 mg/dL] 24 mg/dL *HI* (05/06/15 2:55 PM) Glucose Lvl [70-99 86 mg/dL mg/dL] (05/06/15 2:55 PM) Creatinine Lvl 1.65 mg/dL [0.57-1.11 mg/dL] *HI* (05/06/15 2:55 PM) eGFR [>60 mL/min] 30 mL/min 1 *ABN* (05/06/15 2:55 PM) Calcium Lvl 8.9 mg/dL [8.9-10.5 mg/dL] (05/06/15 2:55 PM) 1Result Comment: Multiply eGFR results by 1.21 for race. Immunizations Vaccine Date Refusal Reason influenza virus vaccine, inactivated 04/15/15 influenza virus vaccine, inactivated 02/11/14 influenza virus vaccine, live 03/16/12 pneumococcal 23-polyvalent vaccine 04/29/03 tetanus toxoid 05/27/95 Procedures Procedure Date Related Diagnosis Body Site Collection of venous blood by venipuncture 05/06/15 Colonoscopy1 03/28/14 Esophagogastroduodenoscopy and biopsy2 03/28/14 H/O [...] 2003 6for herniated disc 7fibrocystic disease 1983 [id number] Social History Social History Type Response Smoking Status Never smoker Assessment and Plan Extracted from: Title: Ambulatory Patient Education Author: Remi Connors MD Date: Family Medicine Laparoscopic Ventral Hernia Repair Laparoscopic ventral hernia repairis a surgery to fix a ventral hernia. A ventral hernia, also called an incisional hernia, is a bulge of body tissue or intestines that pushes through the front part of the abdomen. This can happen if the connective tissue covering the muscles over the abdomen has a weak spot or is torn because of a surgical cut (incision) from a previous surgery. Laparoscopic ventral hernia repair is often done soon after diagnosis to stop the hernia from getting bigger, becoming uncomfortable, or becoming an emergency. This surgery usually takes about 2 hours, but the time can vary greatly. LET YOUR HEALTH CARE PROVIDER KNOW ABOUT: Any allergies you have. All medicines you are taking, including steroids, vitamins, herbs, eye drops, creams, and ufyo-jlb-zvluegl medicines. Previous problems you or members of your family have had with the use of anesthetics. Any blood disorders you have. Previous surgeries you have had. Medical conditions you have. RISKS AND COMPLICATIONS Generally, laparoscopic ventral hernia repair is a safe procedure. However, as with any surgical procedure, problems can occur. Possible problems include: Bleeding. Trouble passing urine or having a bowel movement after the surgery. Infection. Pneumonia. Blood clots. Pain in the area of the hernia. A bulge in the area of the hernia that may be caused by a collection of fluid. Injury to intestines or other structures in the abdomen. Return of the hernia after surgery. In some cases, your health care provider may need to stop the laparoscopic procedure and do regular, open surgery. This may be necessary for very difficult hernias, when organs are hard to see, or when bleeding problems occur during surgery. BEFORE THE PROCEDURE You may need to have blood tests, urine tests, a chest X-ray, or an electrocardiogram done before the day of the surgery. Ask your health care provider about changing or stopping your regular medicines. This is especially important if you are taking diabetes medicines or blood thinners. You may need to wash with a special type of germ-killing soap. Do not eat or drink anything after midnight the night before the procedure or as directed by your health care provider. Make plans to have someone drive you home after the procedure. PROCEDURE Small monitors will be put on your body. They are used to check your heart , blood pressure, and oxygen level. An IV access tube will be put into a vein in your hand or arm. Fluids and medicine will flow directly into your body through the IV tube. You will be given medicine that makes you go to sleep (general anesthetic) . Your abdomen will be cleaned with a special soap to kill any germs on your skin. Once you are asleep, several small incisions will be made in your abdomen. The large space in your abdomen will be filled with air so that it expands. This gives your health care provider more room and a better view. A thin, lighted tube with a tiny camera on the end (laparoscope) is put through a small incision in your abdomen. The camera on the laparoscope sends a picture to a TV screen in the operating room. This gives your health care provider a good view inside your abdomen. Hollow tubes are put through the other small incisions in your abdomen. The tools needed for the procedure are put through these tubes. Your health care provider puts the tissue or intestines that formed the hernia back in place. A screen-like patch (mesh) is used to close the hernia. This helps make the area stronger. Stitches, tacks, or navneet are used to keep the mesh in place. Medicine and a bandage (dressing) or skin glue will be put over the incisions. AFTER THE PROCEDURE You will stay in a recovery area until the anesthetic wears off. Your blood pressure and pulse will be checked often. You may be able to go home the same day or may need to stay in the hospital for 12 days after surgery. Your health care provider will decide when you can go home. You may feel some pain. You may be given medicine for pain. You will be urged to do breathing exercises that involve taking deep breaths. This helps prevent a lung infection after a surgery. You may have to wear compression stockings while you are in the hospital. These stockings help keep blood clots from forming in your legs. Document Released: 04/25/2013 Document Revised: 05/14/2014 Document Reviewed: [facility] Patient Information 2015 [place] [facility]. This information is not intended to replace advice given to you by your health care provider. Make sure you discuss any questions you have with your health care provider. No follow up information was provided.
--- OUTSIDE RECORDS SUMMARY | 2016-09-26 11:11 | XMS REPORT | Referral Summary ---
Author Author [facility] Organization [facility] Address Unknown Phone Unavailable Care Team Providers Care Representative Name Role Phone Agnes Colón Primary Care Physician [phone] Encounter Date(s): 10/03/14 - 10/03/14 [facility] [address] [place] [address] Discharge Diagnosis: Dyspnea Discharge [...] QID, # 360 mL, 0 Refill(s), Pharmacy: [facility], 3 mL NEB QID Start Date: 03/21/15 Status: Ordered Aspir 81 mg, Oral, Daily, 0 Refill(s) Start Date: 11/09/13 Status: Ordered CeleXA 40 mg oral tablet See Instructions, TAKE 1 TABLET EVERY DAY, # 90 tabs, 2 Refill(s), eRx: [facility], TAKE 1 TABLET EVERY DAY Start Date: 11/28/14 Status: Ordered Coumadin 4 mg oral tablet 4 mg 1 tabs, Oral, Daily, # 90 tabs, 1 Refill(s), Pharmacy: [facility], 1 tabs Oral Daily Start Date: 03/10/15 Status: Ordered DuoNeb 0.5 mg-2.5 mg/3 mL inhalation solution 3 mL, Inhalation, QID, # 60 Each, 0 Refill(s), Pharmacy: [facility] # [id number] Start Date: 03/26/15 Status: Ordered ferrous sulfate 325 mg (65 mg elemental iron) oral tablet 1 tabs, Oral, BID, # 60 tabs, 11 Refill(s), [facility], 1 tabs Oral BID Start Date: 05/07/14 Status: Ordered GlipiZIDE XL 2.5 mg oral tablet, extended release 2.5 mg, Oral, BID, # 180 tabs, 1 Refill(s), Pharmacy: [facility], 2.5 mg Oral BID Start Date: 03/10/15 Status: Ordered Lasix 20 mg oral tablet See Instructions, TAKE 1 TABLET EVERY DAY, # 90 tabs, 1 Refill(s), eRx: [facility], TAKE 1 TABLET EVERY DAY Start Date: 09/09/14 Status: Ordered Lipitor 40 mg oral tablet 1/2 tabs, Oral, Bedtime (once a day), # 90 tabs, 2 Refill(s), Pharmacy: [facility], 1/2 tabs Oral Bedtime (once a day) Start Date: 11/29/14 Status: Ordered multivitamin Daily, 0 Refill(s) Start Date: 11/09/13 Status: Ordered Neurontin 300 mg oral capsule 300 mg 1 caps, Oral, BID, # 180 caps, 1 Refill(s), Pharmacy: [facility], 1 caps Oral BID Start Date: 03/10/15 Status: Ordered nitroglycerin 0.4 mg sublingual tablet 0.4 mg 1 tabs, SubLingual, q5min, as needed for chest pain, # 100 tabs, 1 Refill (s), Pharmacy: [facility], 1 tabs SubLingual [...] BID, # 60 tabs, 11 Refill(s), Pharmacy: [facility], 1 tabs Oral BID Start Date: 05/07/14 Status: Ordered Refresh Dry Eye Therapy drops, Eye-Both, QID, 0 Refill(s) Start Date: 11/09/13 Status: Ordered TRUE test blood glucose strips TRUE test blood glucose strips, See Instructions, Check 3 x a day / 3 x a week. Send 1 bottle of 100 strips., # 1 bottles, 3 Refill(s), Pharmacy: [facility], Check 3 x [...] 2003 6for herniated disc 7fibrocystic disease 1983 [id number] Social History Social History Type Response Smoking Status Never smoker Assessment and Plan Extracted from: Title: Office Visit Note Author: Compa Malik MD Date: 10/03/14 Assessment/Plan 1.Dyspnea Ordered: Echo, 2-D + Doppler + Color Flow EKG with Interpretation [id number] Return to Clinic 2.Dry mouth Ordered: Echo, 2-D + Doppler + Color Flow EKG with Interpretation [id number] Return to Clinic 3.Ecchymosis Ordered: Echo, 2-D + Doppler + Color Flow EKG with Interpretation [id number] Return to Clinic 4.Atrial fibrillation Ordered: Echo, 2-D + Doppler + Color Flow EKG with Interpretation [id number] Return to Clinic 5.Chronic anticoagulation Ordered: Echo, 2-D + Doppler + Color Flow EKG with Interpretation [id number] Return to Clinic 6.Coronary heart disease Discussion [...] Doppler + Color Flow EKG with Interpretation [id number] Return to Clinic Referrals to Other Providers Referred by: Compa Malik MD
--- OUTSIDE RECORDS SUMMARY | 2016-09-26 11:11 | XMS REPORT | Referral Summary ---
Author Author [facility] Organization [facility] Address Unknown Phone Unavailable Care Team Providers Care Admission Liaison Name Role Phone Agnes Colón Primary Care Physician [phone] Encounter Date(s): 10/03/14 - 10/03/14 [facility] [address] [place] [address] Discharge Diagnosis: Dyspnea Discharge Diagnosis: [...] QID, # 360 mL, 0 Refill(s), Pharmacy: [facility], 3 mL NEB QID Start Date: 03/21/15 Status: Ordered Aspir 81 mg, Oral, Daily, 0 Refill(s) Start Date: 11/09/13 Status: Ordered CeleXA 40 mg oral tablet See Instructions, TAKE 1 TABLET EVERY DAY, # 90 tabs, 2 Refill(s), eRx: [facility], TAKE 1 TABLET EVERY DAY Start Date: 11/28/14 Status: Ordered Coumadin 4 mg oral tablet 4 mg 1 tabs, Oral, Daily, # 90 tabs, 1 Refill(s), Pharmacy: [facility], 1 tabs Oral Daily Start Date: 03/10/15 Status: Ordered ferrous sulfate 325 mg (65 mg elemental iron) oral tablet 1 tabs, Oral, BID, # 60 tabs, 11 Refill(s), Pharmacy: [facility], 1 tabs Oral BID Start Date: 05/07/14 Status: Ordered GlipiZIDE XL 2.5 mg oral tablet, extended release 2.5 mg, Oral, BID, # 180 tabs, 1 Refill(s), Pharmacy: [facility], 2.5 mg Oral BID Start Date: 03/10/15 Status: Ordered Lasix 20 mg oral tablet See Instructions, TAKE 1 TABLET EVERY DAY, # 90 tabs, 1 Refill(s), eRx: [facility], TAKE 1 TABLET EVERY [...] BID, # 180 caps, 1 Refill(s), Pharmacy: [facility], 1 caps Oral BID Start Date: 03/10/15 Status: Ordered nitroglycerin 0.4 mg sublingual tablet 0.4 mg 1 tabs, SubLingual, q5min, as needed for chest pain, # 100 tabs, 1 Refill (s), Pharmacy: [facility], 1 tabs SubLingual q5min,PRN:as needed for chest pain Start Date: 03/10/15 Status: Ordered pindolol 5 mg oral tablet See Instructions, TAKE 1 TABLET EVERY DAY, # 90 tabs, 1 Refill(s), eRx: [facility], TAKE 1 TABLET EVERY DAY Start Date: 09/30/14 Status: Ordered Please draw lab work Please draw lab work, See Instructions, PT/INR monthly and fax results to [phone] DX: DVT 453.40, # 6 Each, 0 Refill(s) Start Date: 05/31/14 Status: Ordered Protonix 40 mg oral delayed release tablet 1 tabs, Oral, BID, # 60 tabs, 11 Refill(s), Pharmacy: [facility], 1 tabs Oral BID Start Date: 05/07/14 Status: Ordered Refresh Dry Eye Therapy drops, Eye-Both, QID, 0 Refill(s) Start Date: 11/09/13 Status: Ordered TRUE test blood glucose strips TRUE test blood glucose strips, See Instructions, Check 3 x a day / 3 x a week. Send 1 bottle of 100 strips., # 1 bottles, 3 Refill(s), Pharmacy: [facility], Check 3 x [...] 2003 6for herniated disc 7fibrocystic disease 1983 [id number] Social History Social History Type Response Smoking Status Never smoker Assessment and Plan Extracted from: Title: Office Visit Note Author: Compa Malik MD Date: 10/03/14 Assessment/Plan 1.Dyspnea Ordered: Echo, 2-D + Doppler + Color Flow EKG with Interpretation [id number] Return to Clinic 2.Dry mouth Ordered: Echo, 2-D + Doppler + Color Flow EKG with Interpretation [id number] Return to Clinic 3.Ecchymosis Ordered: Echo, 2-D + Doppler + Color Flow EKG with Interpretation [id number] Return to Clinic 4.Atrial fibrillation Ordered: Echo, 2-D + Doppler + Color Flow EKG with Interpretation [id number] Return to Clinic 5.Chronic anticoagulation Ordered: Echo, 2-D + Doppler + Color Flow EKG with Interpretation [id number] Return to Clinic 6.Coronary heart disease Discussion [...] Doppler + Color Flow EKG with Interpretation [id number] Return to Clinic Referrals to Other Providers Referred by: Compa Malik MD
--- OUTSIDE RECORDS SUMMARY | 2016-09-26 11:11 | XMS REPORT | Continuity of Care Document ---
Author Author [facility] Organization [facility] Address Unknown Phone Unavailable Care Team Providers Care Steam Distribution Supervisor Name Role Phone DMITRIY TAYLOR MD PP Unavailable Insurance Providers Payer Name Policy Number Subscriber Name Relationship [employer]hum[employer] Gold [facility] [id number] Tiffanie Kurtz 16 Self Problems No Known [...] Results Test Date Result Interp. Ref. Range Alanine Aminotransferase (ALT/SGPT) January 03, 2013 6:25am 29 U/L N 9-52 Albumin January 03, 2013 6:25am 4.7 G/DL [...] 03, 2013 6:25am 0.1 T/MM3 N 0-0.2 Basophils (%) (Auto) January 03, 2013 6:25am 0.5 % N 0-2 Blood Urea Nitrogen January 03, 2013 6:25am [...] 03, 2013 6:25am 0.3 T/MM3 N 0-0.5 Eosinophils (%) (Auto) January 03, 2013 6:25am 3.0 % N 0-4 Globulin January 03, 2013 6:25am 3.3 G/DL N 2.4-3.6 Glomerular Filtration Rate Calc January 03, 2013 6:25am 26 - Glucometer January 03, 2013 6:28am 112 mg/dL H 65-110 Glucose Level January 03, 2013 6:25am 106 MG/DL N 65-110 Hematocrit January 03, 2013 6:25am 40.0 % N 36-46 Hemoglobin January 03, 2013 6:25am 12.9 GM/DL N 12-16 Immature Granulocyte # (Auto) January 03, 2013 6:25am 0.03 T/MM3 N 0.00- 0.03 Immature Granulocyte % (Auto) January 03, 2013 6:25am 0.3 % N 0.0-0.5 Lymphocytes # (Auto) January 03, 2013 6:25am 2.8 T/MM3 N 1-4.8 Lymphocytes # (Manual) December 18, 2010 5:25am 1.0 T/MM3 N 1-4.8 Lymphocytes % (Manual) December 18, 2010 5:25am 6.0 % L 23-45 Lymphocytes (%) (Auto) January 03, 2013 6:25am 27.4 % N 23-45 Mean Corpuscular Hemoglobin January 03, 2013 6:25am 30.3 UUG N 26-34 Mean Corpuscular Hemoglobin Concent January 03, 2013 6:25am 32.3 GM/DL N 31 -37 Mean Corpuscular Volume January 03, 2013 6:25am 93.9 UM3 N 80-100 Mean Platelet Volume January 03, 2013 6:25am 10.3 UM3 N 9.4-12.4 Monocytes # (Auto) January 03, 2013 6:25am 1.1 T/MM3 H 0-0.8 Monocytes # (Manual) December 18, 2010 5:25am 0.5 T/MM3 N 0-0.8 Monocytes % (Manual) December 18, 2010 5:25am 3.0 % N 0-9.0 Monocytes (%) (Auto) January 03, 2013 6:25am 10.8 % H 0-9.0 LC-Ykz-T-Type Natriuretic Peptide October 04, 2011 4:40am 4080 PG/ML H 0-175 Neutrophils # (Auto) January 03, 2013 6:25am 5.9 T/MM3 N 1.8-7.7 Neutrophils # (Manual) December 18, 2010 5:25am 13.7 T/MM3 H 1.8-7.7 Neutrophils % (Manual) December 18, 2010 5:25am 86.0 % H 33-66 Neutrophils (%) (Auto) January 03, 2013 6:25am 58.0 % N 33-66 Phosphorus Level October 02, 2011 5:05am 5.4 MG/DL H 2.5-4.5 Platelet Count January 03, 2013 6:25am 289 T/MM3 N 130-400 Potassium Level January 03, 2013 6:25am 4.1 MEQ/L N 3.6-5 Prothromb Time International Ratio January 03, 2013 6:25am 1.00 N 0.86-1.10 RDW Standard Deviation January 03, 2013 6:25am 44.3 FL N 36.9-50.2 Red Blood Count January 03, 2013 6:25am 4.26 M/MM3 N 4.00-5.20 Sodium Level January 03, 2013 6:25am 143 [...] 3:00pm 30 MEQ/L N 30-90 Urine Specific [place] October 01, 2011 3:08pm 1.015 - Urine Turbidity October 01, 2011 3:08pm Clear - Urine Urobilinogen October 01, 2011 3:08pm Normal EU/DL - Urine pH October 01, 2011 3:08pm 5.0 - White Blood Count January 03, 2013 6:25am 10.1 T/MM3 N 4.5-11.0 Procedures Procedure Code Date LAPARO CHOLECYSTECTOMY/GRAPH 13873 12/17/10 CENTRAL VENOUS CATHETER PLACEMENT WITH GUIDANCE 38.97 10/01/11 Encounters Encounter Location Date/Time Discharged Inpatient [facility] 10/01/11 10:40am
--- OUTSIDE RECORDS SUMMARY | 2016-09-26 11:12 | XMS REPORT | Referral Summary ---
Author Author [facility], Family Medicine Organization [facility] Address Unknown Phone Unavailable Care Team Providers Care Corporate Bond Trader Name Role Phone Agnes Colón Primary Care Physician [phone] Encounter VC Date(s): 07/12/16 - 07/12/16 [facility], [address] [place] [address] Discharge Disposition: 01-Home or Self Care Attending Physician: Chase Colón MD Admitting Physician: Chase Colón MD Vital Signs Most recent to 1 oldest [Reference Range]: Blood Pressure 124/64 mmHg [90-140/60-90 mmHg] (07/12/16 1:15 PM) Problem List Condition Effective Dates Status [...] QID, # 360 mL, 0 Refill(s), Pharmacy: [facility], 3 mL NEB QID Start Date: 03/21/15 Status: Ordered Align See Instructions, 1 Oral Daily, 0 Refill(s) Start Date: 07/02/16 Status: Ordered Aspir 81 mg, Oral, Daily, 0 Refill(s) Start Date: 11/09/13 Status: Ordered Ativan 0.5 mg oral tablet 0.5 mg 1 tabs, Oral, Bedtime (once a day), # 30 tabs, 0 Refill(s) Start Date: 06/11/16 Status: Ordered atorvastatin 40 mg oral tablet See Instructions, TAKE 1/2 TABLET EVERY DAY AT BEDTIME, # 45 tabs, 2 Refill(s), eRx: [facility], TAKE 1/2 TABLET EVERY DAY AT BEDTIME Start Date: 02/25/16 Status: Ordered calcitriol 0.25 mcg oral capsule 0.25 mcg 1 caps, Oral, BID, # 30 caps, 0 Refill(s) Start Date: 01/05/16 Status: Ordered CeleXA 40 mg oral tablet See Instructions, TAKE 1 TABLET EVERY DAY, # 90 tabs, 2 Refill(s), eRx: [facility], TAKE 1 TABLET EVERY DAY Start Date: 06/13/15 Status: Ordered DuoNeb 0.5 mg-2.5 mg/3 mL inhalation solution 3 mL, Inhalation, QID, # 60 Each, 0 Refill(s), Pharmacy: [facility] # [id number] Start Date: 03/26/15 Status: Ordered ferrous sulfate 325 mg (65 mg elemental iron) oral tablet 1 tabs, Oral, BID, # 60 tabs, 11 Refill(s), Pharmacy: [facility], 1 tabs Oral BID Start Date: 05/07/14 Status: Ordered gabapentin 300 mg oral capsule See Instructions, TAKE 1 CAPSULE TWICE DAILY, # 180 caps, 1 Refill(s), eRx: [facility], TAKE 1 CAPSULE TWICE DAILY Start Date: 04/20/16 Status: Ordered glipiZIDE 2.5 mg oral tablet, extended release See Instructions, TAKE 1 TABLET TWICE DAILY, # 180 tabs, 1 Refill(s), eRx: [facility], TAKE 1 TABLET TWICE DAILY Start Date: 04/21/16 Status: Ordered multivitamin Daily, 0 Refill(s) Start Date: 11/09/13 Status: Ordered nitroglycerin 0.4 mg sublingual tablet 0.4 mg 1 tabs, SubLingual, q5min, as needed for chest pain, # 100 tabs, 1 Refill (s), Pharmacy: [facility], 1 tabs SubLingual q5min,PRN:as needed for chest pain Start Date: 05/19/15 Status: Ordered [place] 5 mg-325 mg oral tablet 1 tabs, Oral, q4hr, as needed for pain, # 40 tabs, 0 Refill(s) Start Date: 07/12/16 Stop Date: 07/23/16 Status: Ordered pindolol 5 mg oral tablet 5 mg 1 tabs, Oral, Daily, # 90 tabs, 3 Refill(s), Pharmacy: [facility], 1 tabs Oral Daily Start Date: 01/06/16 Status: Ordered promethazine-codeine 6.25 mg-10 mg/5 mL oral syrup 5 mL, Oral, q4hr, as needed for cough, # 120 mL, 1 Refill(s) Start Date: 04/15/15 Status: Ordered Protonix 40 mg oral delayed release tablet 40 mg 1 tabs, Oral, BID, # 180 tabs, 3 Refill(s), Pharmacy: [facility] Delivery, 1 tabs Oral BID Start Date: 11/10/15 Status: Ordered Refresh Dry Eye Therapy drops, Eye-Both, QID, 0 Refill(s) Start Date: 11/09/13 Status: Ordered Robaxin 500 mg oral tablet 500 mg 1 tabs, Oral, TID, # 60 tabs, 1 Refill(s), Pharmacy: [facility] # [id number], 1 tabs Oral TID Start Date: 07/12/16 Stop Date: 07/22/16 Status: Ordered TRUE test blood glucose strips TRUE test blood glucose strips, See Instructions, Check 3 x a day / 3 x a week. Send 1 bottle of 100 strips., # 1 bottles, 3 Refill(s), Pharmacy: [facility] Delivery, Check 3 x a day / 3 x a week. Send 1 bottle of 100 strips. Start Date: 03/08/16 Status: Ordered Tylenol with Codeine #3 oral tablet 1 tabs, Oral, q6hr, as needed for pain, Diane Peña, # 30 tabs, 0 Refill(s) Start Date: 07/02/16 Status: Ordered Vitamin D3 2000 intl units oral tablet Intl_Units tabs, Oral, Daily, 0 Refill(s) Start Date: 12/24/14 Status: Ordered warfarin 4 mg oral tablet See Instructions, TAKE 1 TABLET EVERY DAY, # 90 tabs, 1 Refill(s), eRx: [facility], TAKE 1 TABLET EVERY DAY Start Date: 04/01/16 Status: Ordered Results Coagulation Most recent to 1 oldest [Reference Range]: PT Venous (07/12/16 1:40 PM) INR [0.8-1.2] 1.4 1 *HI* (07/12/16 1:40 PM) 1Result Comment: Normal (no anticoagulant): 0.8 - 1.2 Units Routine Therapeutic Range: 2.0 - 3.0 Units High Risk Therapeutic Range: 2.5 - 3.5 Units Immunizations Given and Recorded Vaccine Date Status Refusal Reason influenza virus vaccine, inactivated 04/15/15 Given influenza virus vaccine, inactivated 02/11/14 Recorded influenza virus vaccine, live 03/16/12 Given pneumococcal 23-polyvalent vaccine 04/29/03 Recorded tetanus toxoid 05/27/95 Given Procedures Procedure Date Related Diagnosis Body Site Collection of venous blood by venipuncture 07/12/16 Laparoscopic repair of ventral hernia1 05/12/15 Colonoscopy2 [...] 2003 7for herniated disc 8fibrocystic disease 1983 [id number] Social History Social History Type Response Smoking Status Never smoker Assessment and Plan No data available for this section
--- OUTSIDE RECORDS SUMMARY | 2016-09-26 11:12 | XMS REPORT | Referral Summary ---
Author Author [facility], Family Medicine Organization [facility] Address Unknown Phone Unavailable Care Team Providers Care Filling Separator Name Role Phone Agnes Colón Primary Care Physician [phone] Encounter VC Date(s): 07/02/16 - 07/02/16 [facility] [address] [place] [address]- Discharge Diagnosis: Acute thoracic back pain Discharge Disposition: 01-Home or Self Care Attending Physician: Soila Pepe PA-C Admitting Physician: Soila Pepe PA-C Vital Signs Most recent to 1 oldest [Reference Range]: Temperature Tympanic 36.9 degC [36.6-38.1 degC] (07/02/16 10:19 AM) Peripheral Pulse 88 bpm Rate [60-100 bpm] (07/02/16 10:19 AM) Blood Pressure 134/60 mmHg [90-140/60-90 mmHg] (07/02/16 10:19 AM) Problem List Condition Effective Dates Status [...] QID, # 360 mL, 0 Refill(s), Pharmacy: [facility] Delivery, 3 mL NEB [...] BEDTIME, # 45 tabs, 2 Refill(s), eRx: [facility], TAKE 1/2 TABLET EVERY DAY AT BEDTIME Start Date: 02/25/16 Status: Ordered calcitriol 0.25 mcg oral capsule 0.25 mcg 1 caps, Oral, BID, # 30 caps, 0 Refill(s) Start Date: 01/05/16 Status: Ordered CeleXA 40 mg oral tablet See Instructions, TAKE 1 TABLET EVERY DAY, # 90 tabs, 2 Refill(s), eRx: [facility], TAKE 1 TABLET EVERY DAY Start Date: 06/13/15 Status: Ordered DuoNeb 0.5 mg-2.5 mg/3 mL inhalation solution 3 mL, Inhalation, QID, # 60 Each, 0 Refill(s), Pharmacy: [facility] # [id number] Start Date: 03/26/15 Status: Ordered ferrous sulfate 325 mg (65 mg elemental iron) oral tablet 1 tabs, Oral, BID, # 60 tabs, 11 Refill(s), Pharmacy: [facility], 1 tabs Oral BID Start Date: 05/07/14 Status: Ordered gabapentin 300 mg oral capsule See Instructions, TAKE 1 CAPSULE TWICE DAILY, # 180 caps, 1 Refill(s), eRx: [facility], TAKE 1 CAPSULE TWICE DAILY Start Date: 04/20/16 Status: Ordered glipiZIDE 2.5 mg oral tablet, extended release See Instructions, TAKE 1 TABLET TWICE DAILY, # 180 tabs, 1 Refill(s), eRx: [facility], TAKE 1 TABLET TWICE DAILY Start Date: 04/21/16 Status: Ordered multivitamin Daily, 0 Refill(s) Start Date: 11/09/13 Status: Ordered nitroglycerin 0.4 mg sublingual tablet 0.4 mg 1 tabs, SubLingual, q5min, as needed for chest pain, # 100 tabs, 1 Refill (s), Pharmacy: [facility], 1 tabs SubLingual q5min,PRN:as needed for chest pain Start Date: 05/19/15 Status: Ordered pindolol 5 mg oral tablet 5 mg 1 tabs, Oral, Daily, # 90 tabs, 3 Refill(s), Pharmacy: [facility] Delivery, 1 tabs Oral Daily Start Date: 01/06/16 Status: Ordered promethazine-codeine 6.25 mg-10 mg/5 mL oral syrup 5 mL, Oral, q4hr, as needed for cough, # 120 mL, 1 Refill(s) Start Date: 04/15/15 Status: Ordered Protonix 40 mg oral delayed release tablet 40 mg 1 tabs, Oral, BID, # 180 tabs, 3 Refill(s), Pharmacy: [facility], 1 tabs Oral BID Start Date: 11/10/15 Status: Ordered Refresh Dry Eye Therapy drops, Eye-Both, QID, 0 Refill(s) Start Date: 11/09/13 Status: Ordered TRUE test blood glucose strips TRUE test blood glucose strips, See Instructions, Check 3 x a day / 3 x a week. Send 1 bottle of 100 strips., # 1 bottles, 3 Refill(s), Pharmacy: [facility] Delivery, Check 3 x [...] artery bypass graft Cholecystectomy Lumpectomy8 Tonsillectomy9 Vaginal [id number] 1Robotic-assisted with incorporation of mesh 2Normal, no need to repeat unless symptoms warrant 3H. pylori negative. Marked gastritis. Duodenal diverticulum with adjacent ulcer. Placed on Carafate and PPI. Hold Coumadin. C PCP in 4 weeks 4Shatzkis ring, with dilation, gastric ulcers 5no stents, had blockage, collaterals developed; Dr. Malik 6back surgery 2003 7for herniated disc 8fibrocystic disease 1983 [id number] Social History Social History Type Response Smoking Status Never smoker Assessment and Plan Extracted from: Title: Office Visit Note- Back pain Author: Soila Pepe PA-C Date : 07/02/16 Assessment/Plan Acute thoracic back pain X-ray today. Pt advised to rest the back as much as possible. No lifting > 10lb. Try ice and heat to the area. For pain, she has tried Ultram before, and it made her "feel funny". Will try some Tylenol #3 at this time prn pain. Could try [place]. RTC next week if pain is not improving. Ordered: acetaminophen-codeine, 1 tabs, Oral, q6hr, as needed for pain, Diane Peña, # 30 tabs, 0 Refill(s) Office Visit Level 3 Est 14560 XR Spine Thoracic 3 Views
--- NOTE | 2016-09-26 11:52 | NUR ---
DR DR CASH AT BEDSIDE.
[2016-09-26] MEDS ORDERED: ORPHENADRINE 60mg/2ml INJECTION IM ONE (12:00)
[2016-09-26] MEDS ORDERED: KETOROLAC 60mg/2ml INJECTION IM ONE (12:00)
--- NOTE | 2016-09-26 12:01 | NUR ---
[facility] PT GIVEN INSTRUCTION REGARDING TORADOL AND NORFLEX. UNDERSTANDING VERBALIZED.
--- OUTSIDE RECORDS SUMMARY | 2016-09-26 12:04 | XMS REPORT | Continuity of Care Document ---
Author Author [facility] Organization [facility] Address Unknown Phone Unavailable Allergies Medications Problems Procedures Results Encounters ACCT No. Visit Date/Time Discharge Status Pt. Type Provider Facility Loc./Unit Complaint [id number] 04/17/2013 08:04:00 04/17/2013 23 :59:59 CLS Outpatient
--- OUTSIDE RECORDS SUMMARY | 2016-09-26 12:05 | XMS REPORT | Continuity of Care Document ---
Author Author [facility] Organization [facility] Address Unknown Phone Unavailable Care Team Providers Care Tarring Machine Operator Name Role Phone DMITRIY TAYLOR MD Primary Care Physician [phone] Insurance Providers Payer Name Policy Number Subscriber Name Relationship Medicarecaitlyn Suárez Pffs [id number] Tifafnie Grady 16 Self Advance Directives Directive Response [...] F (96.8 - 99.1) Temperature (Calculated Celsius) 36.72582 degrees C (36.0 - 37.3) Temperature Source [...] 04, 2013 1:45pm LAB TEST FORM REQUEST [id number] - Lymphocytes # (Auto) January 03, 2013 [...] % H 0-9.0 COMMENT [facility] WILL CALL BF-Ehl-O-Type Natriuretic Peptide October 04, 2011 4:40am 4080 [...] 2013 6:25am 58.0 % N 33-66 COMMENT [facility] WILL CALL Phosphorus Level October 02, 2011 5:05am 5.4 MG/DL H 2.5-4.5 Platelet Count January 03, 2013 6:25am 289 T/MM3 N 130-400 COMMENT [facility] WILL CALL Potassium Level January 03, 2013 6:25am 4.1 MEQ/L N 3.6-5 Prothromb Time International Ratio March 28, 2014 6:53am 1.18 H 0.81- 1.09 THERAPUTIC RANGE=2.00-3.00 FOR ANTI-THROMBOSIS THERAPUTIC RANGE=2.50- 3.50 FOR IMPLANTED VALVE RDW Standard Deviation January 03, 2013 6:25am 44.3 FL N 36.9-50.2 COMMENT [facility] WILL CALL Red Blood Count January 03, 2013 6:25am 4.26 M/MM3 N 4.00-5.20 COMMENT [facility] WILL CALL Sodium Level January 03, 2013 [...] Has specimen been collected/obtained? Y Urine Specific [place] October 01, 2011 3:08pm 1.015 - Has [...]
--- NOTE | 2016-09-26 12:06 | NUR ---
XRY PT TO [facility].
--- OUTSIDE RECORDS SUMMARY | 2016-09-26 12:06 | XMS REPORT | Continuity of Care Document ---
Author Author [facility] Organization [facility] Address Unknown Phone Unavailable Care Team Providers Care Executive Director Contract Shop Name Role Phone DMITRIY TAYLOR MD PP Unavailable Insurance Providers Payer Name Policy Number Subscriber Name Relationship Medicarehumana Gold [facility] [id number] Tiffanie Kurtz 16 Self Problems No Known [...] 20, 2012 6:10am 10.7 % H 0-9.0 TJ-Hpw-V-Type Natriuretic Peptide October 04, 2011 4:40am 4080 [...] 3:00pm 30 MEQ/L N 30-90 Urine Specific [place] October 01, 2011 3:08pm 1.015 - Urine Turbidity October 01, 2011 3:08pm Clear - Urine Urobilinogen October 01, 2011 3:08pm Normal EU/DL - Urine pH October 01, 2011 3:08pm 5.0 - White Blood Count December 20, 2012 6:10am 9.1 T/MM3 N 4.5-11.0 Procedures Procedure Code Date LAPARO CHOLECYSTECTOMY/GRAPH 30950 12/17/10 CENTRAL VENOUS CATHETER PLACEMENT WITH GUIDANCE 38.97 10/01/11 Encounters Encounter Location Date/Time Discharged Inpatient [facility] 10/01/11 10:40am
--- OUTSIDE RECORDS SUMMARY | 2016-09-26 12:06 | XMS REPORT | Continuity of Care Document ---
Author Author [facility] Organization [facility] Address Unknown Phone Unavailable Care Team Providers Care Policy Writer Name Role Phone DMITRIY TAYLOR MD PP Unavailable Insurance Providers Payer Name Policy Number Subscriber Name Relationship Medicarehumana Gold [facility] [id number] Tiffanie Kurtz 16 Self Problems No Known [...] Summary. Procedures Procedure Code Date LAPARO CHOLECYSTECTOMY/GRAPH 09399 12/17/10 CENTRAL VENOUS CATHETER PLACEMENT WITH GUIDANCE 38.97 10/01/11 Encounters Encounter Location Date/Time Discharged Inpatient [facility] 10/01/11 10:40am
--- OUTSIDE RECORDS SUMMARY | 2016-09-26 12:07 | XMS REPORT | Continuity of Care Document ---
Author Author [facility] Organization [facility] Address Unknown Phone Unavailable Care Team Providers Care Fiberglass Boat Parts Finisher Name Role Phone DMITRIY TAYLOR MD PP Unavailable Insurance Providers Payer Name Policy Number Subscriber Name Relationship Medicarehumana Gold [facility] [id number] Tiffanie Kurtz 16 Self Problems No Known [...] 03, 2013 6:25am 10.8 % H 0-9.0 NY-Jup-V-Type Natriuretic Peptide October 04, 2011 4:40am 4080 [...] 3:00pm 30 MEQ/L N 30-90 Urine Specific [place] October 01, 2011 3:08pm 1.015 - Urine Turbidity October 01, 2011 3:08pm Clear - Urine Urobilinogen October 01, 2011 3:08pm Normal EU/DL - Urine pH October 01, 2011 3:08pm 5.0 - White Blood Count January 03, 2013 6:25am 10.1 T/MM3 N 4.5-11.0 Procedures Procedure Code Date LAPARO CHOLECYSTECTOMY/GRAPH 36708 12/17/10 CENTRAL VENOUS CATHETER PLACEMENT WITH GUIDANCE 38.97 10/01/11 Encounters Encounter Location Date/Time Discharged Inpatient [facility] 10/01/11 10:40am
--- NOTE | 2016-09-26 12:20 | NUR ---
XRY PT RETURNED.
--- NOTE | 2016-09-26 12:39 | ERPDOC ---
Departure Disposition Decision Date: September 26, 2016 Disposition Decision Time: 13:05 Disposition: 01 DISCHARGED HOME, SELF-CARE Impression Impression Impression: Primary Impression: Metacarpal bone fracture Encounter type: initial encounter Metacarpal bone: fifth Fracture type: closed Metacarpal location: neck Fracture alignment: displaced Laterality: right Qualified Codes: S62.336A - Displaced fracture of neck of fifth metacarpal bone, right hand, initial encounter for closed fracture Additional Impression: Knee pain, acute Laterality: right Qualified Codes: M25.561 - Pain in right knee Severity: Moderate Condition: Improved Seen By: Physician only Referrals: DMITRIY TAYLOR MD (PCP) 3 Days LORRI RONDON MD 1 Day He will see you at 1000 Patient Instructions: Fall Prevention (ED), Hand Fracture (ED) Problems/Meds/Labs Reviewed?: Yes Medications reviewed and manag: Yes Additional Instructions: You have broken your hand. Your knee is not broken. Ice, elevation, and naproxen can all help with your symptoms. Follow up with Dr. Rondon tomorrow at 10 :00 for your hand. Follow up with your doctor later this week to re-evaluate your knee. Follow up care ordered?: Yes Mental Status: Alert, Oriented HPI - Fall/Injury General Chief Complaint: Fall Stated Complaint: FALL, KNEE PAIN Time Seen by Provider: 11:55 Source: patient, family Exam Limitations: no limitations HPI - Fall/Injury Initial Comments 76yo woman presents to the ER today with right hand and knee pain. Pt was trying to move plants from around her gas meter yesterday (they are preparing to move the meter), when her shoe fell of while she was trying to stand. Pt tripped and fell, causing immediate pain in her right hand. Pt took tylenol without significant relief of her hand. Today, her right knee swelled and is also painful. Occurred At: home Onset: Rapid Duration: 12-24 hrs Pain Scale: Now & Worst: 5/10 Severity: moderate Injuries/Pain Location: upper extremity, lower extremity 1 - Pain and swelling 1 - Pain, swelling, ecchymosis Context: tripped Loss of Consciousness: no loss of consciousness Modifying Factors: IMPROVES WITH: cold therapy, immobilization, WORSE WITH: jarring, movement Associated Symptoms: trouble walking Hx of Similar Symptoms: No Allergies: Coded Allergies: red dye (Verified Allergy, Mild, ITCH, 09/13/16) Past History Patient Surgical History Colonoscopy in the 90s, EGD 2009 [id number] Back surgery for herniated [id number] Removal of [id number] Left ulnar [id number] Breast [id number] Left carpal tunnel [id number] Left eardrum [id number] 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 Past Medical History Metabolic: hypercholesterolemia, hypertension Cardiac: A-fib Surgical History Cardiac: cardiac cath Family History Family PMH: FOUND: cancer, diabetes Vaccines Hx Influenza Vaccination: Yes (2014) Hx Pneumococcal Vaccination: Yes (2013) Hx Tetanus, Diptheria, Pertuss: Yes (05/10/13) Review of Systems Musculoskeletal General: joint pain, joint swelling, pain, see HPI All other Systems All Other Systems: Reviewed and Negative Physical Exam General General Nourishment: well nourished, well developed, appears stated age, no acute distress, adult, obese General Body Habitus: well groomed Vitals and Pain First Documented Vital Signs Date Time Temp Pulse Resp B/P Pulse Ox O2 Delivery O2 Flow Rate FiO2 09/26/16 11:04 98.4 85 16 129/77 96 Room Air Weight: Kilograms: 76.200 Height (feet): 5 Height (inches): 2.00 Triage Pain Scale: RN VS reviewed by Provider: Yes Musculoskeletal Joint : Side: Right Joint: knee Joint Findings: FOUND: pain, swelling, NOT FOUND: ROM limited, deformity, discoloration, instability, laceration Extremity : Side: Right Extremity: hand Extremity Findings: FOUND: deformity, discoloration, pain, swelling, NOT FOUND: laceration Supervisory Exam Head: atraumatic Eyes: PERRL Nares: no exudate Neck: trachea midline Chest: symmetric Abdomen: non-distended Neurological: no abnormal movements Skin: pink, dry Psychological: alert, appropriate Differential Diagnoses Considering: Abrasion, Contusion, Dislocation, Sprain, Strain Procedures Procedures Performed Procedures Performed: Splinting Splinting Procedure Splint : Site: right hand Pre-placement NV: FOUND: good movement, good sensation Hand-Made Type: orthoglass Splint: volar Post-placement NV: FOUND: cap refill < 3 sec, good movement, good sensation Applied by: RN, MD/DO Progress Results/Orders Orders Procedure Category Date Status Time Knee Right 3 Views RAD 09/26/16 Resulted 11:55 Hand Right 3 View RAD 09/26/16 Resulted 11:55 Ketorolac (Toradol) PHA 09/26/16 Complete 12:00 Orphenadrine (Norflex) PHA 09/26/16 Complete 12:00 Medications Current ED Medications Ketorolac Tromethamine (Toradol) 60 mg O ONCE IM Last administered on t 12:02; Start 09/26/16 at 12:00; Stop 09/26/16 at 12:01; Status DC Orphenadrine Citrate (Norflex) 60 mg O ONCE IM Last administered on 09/26/16t 12:03; Start 09/26/16 at 12:00; Stop 09/26/16 at 12:01; Status DC Progress Progress 76yo woman with right hand fx. Due to angle of fx, this physician has not been successful in reducing/maintaining reduction of fx previously. Will splint as discussed and refer to orthopedic surgeon. F/u with PCM as outpt for knee pain/ swelling following fall. Discussed dx, prognosis, tx, and need for f/u with pt who voiced understanding. Consult/PCP Consult/PCP : Physician Contacted: Dr. Rondon Time Called: 12:28 Time of first response: 12:41 Type of discussion: Phone Consult/PCP Discussion Details Will call back with recommendations. Xray Xray #1: Xray: Hip R Interpretation: Abnormal (Anterior fx of 5th MC), Interpreted by Me Xray #2: Xray: Knee R Interpretation: Normal, Interpreted by MARILYN Stroud DO September 26, 2016 12:39
--- NOTE | 2016-09-26 13:03 | NUR ---
SLING PT STATES "I HAVE 2 SLINGS AT HOME." REVIEWED PROPER WEARING INSTRUCTION AND RATIONAL FOR SLING WEARING. PT STATES THAT SHE WILL PUT HER SLING ON WHEN SHE GETS HOME, DOES NOT WISH FOR ADDITIONAL CHARGE OF A NEW SLING HERE.
[2016-09-26 13:26] VITALS: BP 132/68; PULSE 84; RESP 16; TEMP 98.3; O2SAT 94
--- NOTE | 2016-09-26 13:26 | NUR ---
DISMISS ASSISTED PT TO PRIVATE CAR VIA . [employer]. PT ABLE TO TRANSFER WITHOUT DIFFICULTY. SLOW, YET STEADY.
--- NOTE | 2016-09-26 17:41 | DI ---
Indication: ITS.REASON: Fall; swelling PROCEDURE: KNEE RIGHT 3 VIEWS: Encounter: Initial Comparison: None Findings: There is no acute fracture, dislocation or malalignment identified. Mild medial and moderate to severe patellofemoral compartment joint space narrowing. Meniscal chondrocalcinosis. Impression: No acute osseous abnormality. 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 .
--- NOTE | 2016-09-26 17:42 | DI ---
Indication: ITS.REASON: fall; swelling PROCEDURE: HAND RIGHT 3 VIEW: Encounter: Initial Comparison: None Findings: Minimally angulated fracture of the fifth metacarpal neck. No additional acute fracture or dislocation seen. Mild osteoarthritis. Bony demineralization. Impression: Closed posttraumatic fifth metacarpal neck fracture. .
== END 2016-09-26 13:26 | disposition home or self-care (01) ==
LOC: ED 11:02
DX: S62.336A Displaced fracture of neck of fifth metacarpal bone, right hand, initial encounter for closed fracture (principal); M25.561 Pain in right knee; W01.0XXA Fall on same level from slipping, tripping and stumbling without subsequent striking against object, initial encounter; Y93.H2 Activity, gardening and landscaping; Y92.007 Garden or yard of unspecified non-institutional (private) residence as the place of occurrence of the external cause; Y99.8 Other external cause status
CPT/HCPCS: 29125; 73130; 73562; 96372; 99283; J1885; J2360